=== PATIENT | male | born 1945 | race Caucasian/White ===

== ENCOUNTER 2023-05-09 10:12 | Outpatient (AMB) | payer MEDICARE, BC, SELFPAY ==
--- NOTE | 2023-05-09 10:20 | A.OFFVIS_ITS ---
Intake Intake Visit Reasons: Hemorrhoids Intake Note: This patient presents for an assessment for hemorrhoids. Patient c/o; reports no rectal bleeding, reports no pain, reports no constipation. 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 He said he had hemorrhoid surgery about 8 years ago for painful hemorrhoids. He has been doing well since that time. However for the past few months, he had noticed this stools to be ?ribbon like?. He would mentioned this to his primary care physician at the [place]. He has been instructed to see me therefore. He denies seeing blood per rectum. He does have some degree of constipation. He denies any pain in the anus. [facility] Medical History Hemorrhoids without complication Surgical History Hx of surgical procedure (~2015) History of prostate surgery History of hernia surgery (~07/2022) Family History Mother Cancer Father Cancer Social History Alcohol intake: never Patient Tobacco Use Status: Never used Tobacco Review of Systems Const Denies chills and Denies fever(s) Card Denies chest pain, Denies dyspnea and Denies dyspnea on exertion Resp Denies cough, Denies dyspnea and Denies dyspnea on exertion GI Denies hematochezia and Denies change in bowel habits Denies hematuria and Denies difficulty urinating Musc Denies back pain and Denies limited range of motion Neuro Denies focal weakness and Denies convulsions Psych Denies depression and Denies mood swings Physical Exam Const General: comfortable and no acute distress Orientation/consciousness: patient oriented x3 Neck Neck: Yes no lymphadenopathy Resp Auscultation: clear to auscultation bilaterally Cardio Rhythm: regular rhythm GI Other: Rectal exam shows no large external hemorrhoids Palpation (GI): Soft to palpation, nontender and no guarding Neuro General: patient oriented x3 Office Procedures Anoscopy He was in zachariah-knife position. The anoscope was gently inserted. A full examination of the anal canal was done. He did have small internal external hemorrhoidal columns on both the left and right side. There was no fissure, there was no lesion or any induration There was no blood seen. There has no tenderness on exam. [id number] Assessment & Plan Assessment & Plan (1) Hemorrhoids without complication: Code(s): K64.9 - Unspecified hemorrhoids Plan: He was instructed to see me because of he describes as ?ribbonlike stools? with a history of hemorrhoids in the past. He does state that his stools have improved her past few weeks. Examination does not reveal any large hemorrhoids. He has small hemorrhoidal columns, left and right side, both internal external. However, these were non bulky. I assured him about my findings. I told him that he does not require any hemorrhoid surgery at this time. I advised him on continue with high-fiber diet including supplementation. He can follow-up with me on a p.r.n. basis. Coding Level of Care Code New Pt Level 3 (17851) Diagnoses Hemorrhoids without complication K64.9 CPT Codes Details - CPT: 88410-[id number] ([id number])
== END 2023-05-09 10:52 | disposition home or self-care (01) ==
PROVIDERS: Visit Provider Surgery
DX: K64.9 Unspecified hemorrhoids (principal)
CPT/HCPCS: 46600; 99203

== ENCOUNTER → 2023-05-09 10:12 | Outpatient (BNVA) | payer MEDICARE, BC, SELFPAY | PROVIDERS: Visit Provider Surgery | DX: K64.9 Unspecified hemorrhoids (principal) | CPT/HCPCS: 46600; 99202 ==

== ENCOUNTER 2024-09-02 15:49 | Emergency (ER) | payer OTHER, SELFPAY ==
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
[2024-09-02 16:02] VITALS: BP 146/74; PULSE 90; O2SAT 95
[2024-09-02 16:09] VITALS: BP 124/71; PULSE 88; RESP 17; TEMP 36.6; O2SAT 96; BMI 21.4
[2024-09-02 16:15] VITALS: BP 124/71; PULSE 88; RESP 17; TEMP 36.6; O2SAT 96
--- OUTSIDE RECORDS SUMMARY | 2024-09-02 17:22 | XMS_ITS | Clinical Summary ---
Author Organization [facility] Address [address] [place] [address] Care Team Providers Care Chief Nurse Anesthetist Name Role Phone Bhaskar Freitas MD Primary Care Provider [phone] Allergies No known active allergies Medications Medication Sig Dispensed Refills Start Date End Date Status mirtazapine (REMERON) 15 MG tablet 0 11/04/2020 Active Magnesium Oxide 250 MG TABS Take 250 mg by mouth. 0 Active glyBURIDE (DIABETA) 1.25 MG tablet Take 1.25 mg by mouth. 0 Active atorvastatin (LIPITOR) tablet 20 mg Take 20 mg by mouth. 0 Active cyanocobalamin 1000 MCG tablet Take 100 mcg by mouth. 0 Active tamsulosin (FLOMAX) 0.4 MG CAPS 0.4 mg. 0 05/20/2019 Active pantoprazole (PROTONIX) 40 MG tablet Take 40 mg by mouth. 0 Active Multiple Vitamins-Minerals (PreserVision AREDS) CAPS Take 1 capsule by mouth. 0 Active Active Problems No known active problems Family History Medical History Relation Name Comments Cancer Father Cancer Mother Relation Name Status Comments Father Mother Social History Tobacco Use Types Packs/Day Years Used Date Smoking Tobacco: Former Smokeless Tobacco: Never Sex and Gender Information Value Date Recorded Sex Assigned at Not on file Gender Identity Not on file Sexual Orientation Not on file Job Start Date Occupation Industry Not on file Not on file Not on file Last Filed Vital Signs Vital Sign Reading Time Taken Comments Blood Pressure - - Pulse - - Temperature - - Respiratory Rate - - Oxygen Saturation - - Inhaled Oxygen Concentration - - Weight 68.9 kg (152 lb) 11/18/2020 3:27 PM EDT Height 175.3 cm (5' 9 ) 11/18/2020 3:27 PM EDT Body Mass Index 22.45 11/18/2020 3:27 PM EDT Plan of Treatment Health Maintenance Due Date Last Done Comments Hepatitis C Screening 1945 COVID-19 Vaccine (#1) 1945 Depression Screening 1959 Preventative Health Evaluation 04/20/1965 DTap / Tdap / Td (1 - Tdap) 04/20/1966 Shingrix-Zoster Vaccine (1 of 2) 04/20/1997 Fall Risk Assessment 04/20/2012 Pneumococcal Vaccine (1 of 1 - PCV) 04/20/2012 RSV Adult > 60+ Yrs or Pregn ant (1 - 1-dose 75+ series) 04/20/2022 Influenza Vaccine (#1) 2024 Hepatitis B Vaccines Aged Out No long er eligible based on patient's age to complete this topic RSV Ped < 20 months Aged Out No longe r eligible based on patient's age to complete this topic Care Teams Chief Nurse Anesthetist Relationship Specialty Start Date End Date Bhaskar Freitas MD [address] [place], [place] [phone] PCP - General Family Medicine 10/27/20
--- OUTSIDE RECORDS SUMMARY | 2024-09-02 17:23 | XMS_ITS | Data Portability ---
Author Organization [place] - [facility], Allergy Address [address] [address] Assessment Encounter Date Assessment Date Assessment LastModified by Organization Details LastModified Time 07/09/2023 07/09/2023 After informed consent was obtained the area of concern was biopsied. The patient tolerated this well. Hemostasis was achieved prior to patient leaving the office. Advised soft diet for 3-5 days, as well as warm salt water gargles after meals. I will call the patient with the pathology results, if he does not hear from me by the end of next week he understands to call the office or check in via the portal. [email or web address] Not available 07/09/2023 12:25:52 Plan of Treatment Reminders Order Date Submit Date Provider Last Modified By Organization Details Last Modified Time Details Appointments None recorded. Lab pathology study - [place] location 2023 024 GINNY [facility] (Centralized Electronic Ordering - All Locations), Patient Can Go To The Location Of Their Choice, [address] 14:28:15 Referral None recorded. Procedures None recorded. Surgeries None recorded. Imaging None recorded. Medication Orders None recorded. Patient TargetsNo targets recorded. Patient InstructionsNo instructions recorded. Reason for Referral None Reported. Results Created Date Observation Date Name Description Value Unit Range Abnormal Flag Note LastModifiedBy Organization Detail LastModifiedTime Result Notes None recorded. 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/11/2015 11:54 AM (D10.1) Not Available [facility] 4 03:22:13 Deviated nasal septum 619461517 Active 2015 Deviated nasal septum; Location: bilateral CMS Risk: moderate risk CMS Treatment : new problem (to examiner) : additiona l workup planned C ondition: worse Not e: Date Diagnosed : 4 2:40 PM (470) ; Start Date : 4 Deviate d nasal septum; Note: Date Diagnosed : 08/11/2015 11:53 AM (J34.2) Not Available [facility] 4 03:22:13 Chronic disease of tonsils AND/OR adenoids 55892948 Active 2018 Tonsillar tag; Note: Date Diagnosed : 07/31/2018 9:39 AM (J35.8) Not Available [facility] 4 03:22:14 Bleeding from nose 289813753 Active 2019 Epistaxis ; Note: Date Diagnosed : 10/06/2019 2:40 PM (R04.0) Epistax is; Note: Date Diagnosed : 09/24/2019 5:38 PM (R04.0) ; Start Date : 0 Not Available [facility] 4 03:22:13 Disturban ce of oral epitheliu m [id number] 9107 Active 2022 Other oral epitheliu m disturban elizabeth; Note: Date Diagnosed : 06/05/2022 3:25 PM (K13.29) Not Available [facility] 4 03:22:13 Problem Notes None recorded. Procedures Surgical History Date Name Laterality Status Provider Name and Address Organization Details Recorded Time 07/09/2023 Biopsy Oral Cavity completed Nica Jaeger [place] - [facility] 07/09/2023 12:22:17 Imaging Results None recorded. Procedure Notes None recorded. Medical Equipment None Reported. Allergies No known drug allergies Medications Name Sig Start Date Stop Date Status Note LastModified by Organization Details LastModified Time atorvastat in 20 mg tablet 2013 active Medicatio n ID: [id number] Dura tion Value: 30 Brand Name: atorvasta tin Send Method: E-Prescri bed Subs Allowed: subs OK Medica tionGener icName: atorvasta tin Not Available Not Available Not Available Flonase 50 mcg/actuat ion nasal spray,susp ension 2013 active Medicatio n ID: [id number] Pres cribed By Name: Emilee Cortez Name: Flonase S end Method: E-Prescri bed Subs Allowed: subs OK Specia l Instructi on: 2 spray each nostril BID Medic ationGene ricName: Flonase Not Available Not Available Not Available hydrocorti sone acetate 25 mg rectal suppositor y active Not Available Not Available Not Available lorazepam 0.5 mg tablet active Not Available Not Available Not Available tamsulosin 0.4 mg capsule active Not Available Not Available Not Available Proctofoam HC 1 %-1 % APPLY A PEA SIZED AMOUNT TO THE AFFECTED AREA TWICE DAILY NEEDED FOR 30 DAYS active Not Available Not Available No t Available bisacodyl 5 mg tablet,del ayed release TAKE 4 TABLETS BY MOUTH ONCE FOR 1 DOSE active Not Available Not Available No t Available finasterid e 5 mg tablet active Not Available Not Available Not Available oxycodone 5 mg tablet active Not Available Not Available Not Available GaviLyte-G 236 gram-22.74 gram-6.74 gram-5.86 gram oral solution MIX AND DRINK DIRECTED active Not Available Not Available No t Available EpiPen 2-Jim 0.3 mg/0.3 mL injection, auto-injec tor 2013 active Medicatio n ID: [id number] Dura tion Value: 1 Brand Name: EpiPen 2-Jim Saul d Method: E-Prescri bed Subs Allowed: subs OK Specia l Instructi on: USE DIRECTED NEEDED FOR BEE STINGS Me dicationG enericNam e: EpiPen 2-Jim Not Available Not Available Not Available Vitals Date Recorded Body height Body mass index (BMI) Body weight Provider Name and Address Organization Details Last Updated DateTime 07/09/2023 175.26 cm 23.6 kg/m2 79814.78 g Teresa Burleson [place] - [facility] 07/09/2023 11:35:40 Social History None recorded. Functional Status None recorded. Mental Status None recorded. Family History Nothing Reported. Medical History No medical history recorded. Past Encounters Encounter ID Performer Location Encounter Start Date Encounter Closed Date Diagnosis/Indication Diagnosis SNOMED-CT Code Diagnosis ICD10 Code Diagnosis Note [id number] NICA JAEGER PA-C [facility] on [address] [place] [address] 07/09/2023 11:07:40 07/09/2023 12:59:45 Disturbance of oral epithelium [id number] 03030 K13.29 Health Concerns Section Related Observation LastModified by Organization Detai ls LastModified Time None Recorded Concern Status LastModified by Organization Details LastModified Time None Recorded Advance Directives Directive None Recorded Payers Insurance Date Sequence Insurance Name Policy Number Policy Flores Covered Member ID Flores Member ID Guarantor Name 07/09/2023 1 () Aryan Henriquez [id number] Aryan Henriquez 07/16/2023 1 [place]ICARE [place]: [employer] Aryan Up Martinez [id number] Aryan Henriquez 07/17/2023 2 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 He saw a physician in [place] (unclear if it was an oral surgeon or ENT). He had a shave procedure done and he was told it was a pre-cancerous lesion. He did well for many years. He reports about six months ago he noticed while flossing his teeth a little white line in the vicinity of the prior lesion. It is not painful. No bleeding. He was seen for this about two months ago and there was an area of pale discoloration of the left posterior lateral tongue. It was soft to palpation, surrounding mucosa normal. We discussed the area does not look concerning, and could represent scarring from his prior procedure. We elected to proceed with observation with plans for biopsy if something changed. He has no new symptoms to report, but is feeling worried and would like to just proceed with the biopsy. Nica conner [place] - [facility] [place] 07/09/2023 12:30:03
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
[2024-09-02 19:00] VITALS: BP 124/71; PULSE 88; RESP 17; TEMP 36.6; O2SAT 96
== END 2024-09-02 19:00 | disposition home or self-care (01) ==
PROVIDERS: Emergency Provider Internal Medicine
DX: S13.4XXA Sprain of ligaments of cervical spine, initial encounter (principal); M54.2 Cervicalgia; R51.9 Headache, unspecified; V43.52XA Car driver injured in collision with other type car in traffic accident, initial encounter; Y93.9 Activity, unspecified; Y92.410 Unspecified street and highway as the place of occurrence of the external cause; Y99.8 Other external cause status; Z79.899 Other long term (current) drug therapy
CPT/HCPCS: 70450; 72125; 99284

== ENCOUNTER → 2024-09-02 17:09 | Outpatient (BNV) | payer MEDICARE, BC, SELFPAY | PROVIDERS: Emergency Provider Internal Medicine; Visit Provider Radiology Diagnostic Radiology | DX: M25.78 Osteophyte, vertebrae (principal); G31.9 Degenerative disease of nervous system, unspecified | CPT/HCPCS: 70450; 72125 ==

== ENCOUNTER 2024-10-14 13:50 | Outpatient (AMB) | payer MEDICARE, BC, SELFPAY ==
--- OUTSIDE RECORDS SUMMARY | 2023-11-06 06:00 | XMS_ITS ---
Author Name [facility] [place] [facility] [place] [facility] [facility] [place] Address [address] [place] [address] Care Team Providers Care Supervisor Seaming Name Role Phone ESTEFANY OVERTON Primary Care Provider Unavailshivani christopher Insurance Providers: All historical and current Section Date Range: From patient's date of to the date document was created. This section includes the names of all active insurance providers for the patient. Insurance Provider Type of Coverage Plan Name Start of Policy Coverage End of Policy Coverage Group Number Member ID Insurance Provider's Telephone Number Policy Flores's Name Patient's Relationship to Policy Flores [facility] PREFERRED PROVIDER ORGANIZAT ION (PPO) BASIC FAMIL Y Feb 23, 2001 [id number] [phone] Priya BLAND SPOUSE ANTHEM BCBS FEP PREFERRED PROVIDER ORGANIZAT ION (PPO) FEP BASIC FAMIL Y Feb 23, 2001 [id number] EDWINA SPOUSE ANTHEM FEP PREFERRED PROVIDER ORGANIZAT ION (PPO) FEP BASIC FAMIL Y Feb 23, 2001 112 [id number] [phone] Priya [place] PREFERRED PROVIDER ORGANIZAT ION (PPO) BASIC FAMIL Y Feb 23, 2001 [id number] Priya [place] PREFERRED PROVIDER ORGANIZAT ION (PPO) BASIC FAMIL Y Feb 23, 2001 [id number] [phone] EDWINAPriya SANTOS SPOUSE [place] FEP ([id number]) PRESCRIPT ION FEP RX Feb 23, 2001 [id number] [phone] Priya BLAND SPOUSE [place] FEP BCBS PRESCRIPT ION CAREM ARK FEPRX Feb 11, 2010 [id number] [phone] Priya BLAND SPOUSE [place]-F EP BCBS PRESCRIPT ION BCBS FEP PLAN Feb 11, 2010 [id number] [phone] Priya BLAND SPOUSE MEDICARE (WN) MEDICARE () PART B Feb 11, 2015 PART B [id number] [facility] [phone] [place],F RANK PATIENT MEDICARE (WN) MEDICARE () PART B Feb 11, 2015 PART B [id number] [facility] [phone] [place],F RANK PATIENT MEDICARE (WNR) MEDICARE () PART B Feb 11, 2015 PART B [id number] [facility] [phone] [place],F RANK PATIENT MEDICARE (WN) MEDICARE () PART B Feb 11, 2015 PART B [id number] [facility] MATYOKA,F RANK PATIENT MEDICARE (WNR) MEDICARE () PART B Feb 11, 2015 PART B [id number] [facility] MATYOKA,F RANK PATIENT MEDICARE (WNR) MEDICARE () PART A Apr 11, 2012 PART A [id number] [facility] MATYOKA,F RANK PATIENT MEDICARE (WNR) MEDICARE () PART A Apr 11, 2012 PART A [id number] [facility] [phone] [place],F RANK PATIENT MEDICARE (WNR) MEDICARE () PART A Apr 11, 2012 PART A [id number] [facility] MATY[place]A,F RANK PATIENT MEDICARE (WNR) MEDICARE () PART A Apr 11, 2012 PART A [id number] [facility] [phone] Sae BLAND RANK PATIENT MEDICARE (WNR) MEDICARE (M) PART A Apr 11, 2012 PART A [id number] [facility] Sae BLAND RANK PATIENT Selected Encounter This section includes the information on record at [place] for the Encounter. Date/Time Encounter Type Encounter Description Reason Provider Source Nov 06, 2023 10:00 AM PSYTX W PT 45 MINUTES PCMHI INDIV ICD-10-CM Z63.0 Problems in relationship with spouse or partner DEANDRE HUTCHINSON IHE Encounter Template Text not used by [place] Assessments - Encounter Diagnoses This section includes the primary and secondary diagnoses documented for the Encounter. Date/Time Primary/Secondary Diagnosis Diagnosis Name Provider Source Nov 08, 2023 10:24 AM PRIMARY Problems in relationship with spouse or partner DEANDRE HUTCHINSON [place] [facility] [place] [facility] Nov 08, 2023 10:24 AM SECONDARY Depression, unspecified DEANDRE HUTCHINSON [facility] [place] [facility] Nov 08, 2023 10:24 AM SECONDARY Post-traumatic stress disorder, unspecified DEANDRE HUTCHINSON [facility] [place] [facility] Nov 08, 2023 10:24 AM SECONDARY Unspecified urinary incontinence DEANDRE HUTCHINSON [facility] [place] [facility] Plan of Treatment: Future Appointments (+ 6 months) and Future Tests (+/- 45 days) The Plan of Treatment section includes future care activities for the patient from all [place] treatmentfacilities. This section includes future appointments and future orders which are active, pending or scheduled. Future Appointments This section includes appointments that were scheduled to occur 6 months from the date of the Encounter, up to a maximum of 20 appointments. The data comes from all [place] treatment facilities. Appointment Date/Time Appointment Type Appointme nt Facility Name Nov 08, 2023 01:30 PM AMBULATORY - [place]ICINE [place] [facility] [place] [facility] Nov 08, 2023 02:15 PM AMBULATORY - NONE [place] [facility] [place] [facility] Nov 11, 2023 02:00 PM AM[place]UL[place]ORY [place]ICINE [place] [facility] [place] [facility] Dec 05, 2023 03:00 PM AMBULATORY - PSYCHIATRY [place] [facility] [place] [facility] Dec 11, 2023 11:30 AM AM[facility] [place]ICINE [facility] [place] [facility] Dec 17, 2023 09:00 AM AMBULATORY - NONE [facility] [place] [facility] Dec 20, 2023 10:30 AM AMBULATORY - NONE [facility] [place] [facility] Jan 01, 2024 02:30 PM AMBULATORY - REHAB MEDICIN E [facility] [place] [facility] Jan 22, 2024 09:00 AM AMBULATORY - MEDICINE [facility] [place] [facility] Feb 19, 2024 10:40 AM AMBULATORY - MEDICINE [facility] [place] [facility] Mar 11, 2024 01:40 PM AMBULATORY - MEDICINE [facility] [place] [facility] Mar 25, 2024 11:00 AM AMBULATORY - MEDICINE [facility] [place] [facility] Apr 15, 2024 10:00 AM AM[place]UL[place]ORY [place]ICINE [place] [facility] [place] [facility] Lab Results: +/- 30 days of the encounter This section includes the Chemistry and Hematology Lab Results on record with [place] for the patient. Radiology Reports and Pathology Reports are provided separately, in subsequent sections. Lab Results This section contains the Chemistry/Hematology Results that were resulted 30 days before or 30 daysafter the date of the Encounter. Date/Time Source Result Type Result - Unit Interpretation Reference Range Specimen Type Comment Oct 22, 2023 08:57 AM [place] [facility] [place] [facility] DRUGS OF ABUSE URINE Specimen Type: URINE Comment: Urine with Cr <5 is diluted or substituted. Cr between 5 and 20 is very dilute. Urine with SG of 1.001 or less is diluted or substituted. SG of 1.003 or less is very dilute. Urine with a pH <3 or >11 has been adulterated and is unsuitable for testing by our current method. Urine with pH between 3 and 4 OR 10 and 11 may have been adulterated. FENTANYL CONFIRMATION NOT SENT BY LAB. Ordering Provider: ESTEFANY OVERTON Report Released Date/Time: Oct 21, 2023 01:38 PM Reporting [facility] [address] [id number] Performing Lab: [facility] [address] [address] AMPHETAMINES SCREEN NONE-DETECTED None-Detected, Cutoff = 1000 ng/mL BENZODIAZEPINES SCREEN NONE-DETECTED Non e-Detected, Cutoff = 200 ng/mL COCAINE SCREEN NONE-DETECTED None-Detect ed,Cutoff = 300 ng/mL OPIATES SCREEN NONE-DETECTED None-Detect ed, Cutoff = 300 ng/mL CANNABINOIDS SCREEN POSITIVE HH None-Detect ed,Cutoff = 50 ng/mL BARBITURATES SCREEN NONE-DETECTED None-D etected,Cutoff = 200 ng/mL OXYCODONE SCREEN NONE-DETECTED None-Dete cted, Cutoff = 100 ng/mL BUPRENORPHINE (URINE) NONE-DETECTED None Detected, Cutoff = 10.0 ng/mL ALCOHOL, ETHYL URINE NONE-DETECTED mg/dL NONE-DETECTED, cutoff = 10 mg/dL FENTANYL SCREEN NONE-DETECTED ng/mL Nega tive: Cutoff = 1.00 ng/mL PH, ANSHU 6.3 [pH] 4-10 CREATININE, ANSHU 203.20 mg/dL >20 SP.GRAVITY, ANSHU 1.020 1.003-1.020 Social History: Smoking Status (Most current) and Tobacco Use (All prior to encounter date) This section includes the most current, and the historical, smoking and tobacco- related health factors from the [place] facility where the Encounter took place. Current Smoking Status This section includes the most current smoking, or tobacco-related health factor, from the [place] facility where the Encounter took place. Date/Time Current Smoking Status Comment [facility] Dec 18, 2022 10:00 AM VA-TOBACCO FORMER USER [facility] Tobacco Use History This section includes a history of the smoking, or tobacco-related health factors, that were collected on or before the date of the Encounter. The data comes from the [place] facility where the Encounter took place. Date/Time Smoking Status/Tobac co Use Comment Facility Dec 18, 2022 10:00 AM VA-TOBACCO QUIT 15 YRS OR MORE [facility] Dec 06, 2021 09:30 AM VA-TOBACCO FORMER USER [place] [facility] [place] [facility] Dec 06, 2021 09:30 AM VA-TOBACCO QUIT 15 YRS OR MORE [facility] Nov 03, 2020 03:30 PM [facility] [place] [facility] Nov 03, 2020 03:30 PM VA-TOBACCO QUIT 15 YRS OR MORE [place] [facility] [place] [facility] Dec 04, 2019 10:30 AM VA-TOBACCO FORMER USER [place] [facility] [place] [facility] Dec 04, 2019 10:30 AM VA-TOBACCO QUIT 15 YRS OR MORE [facility] [place] [facility] May 30, 2018 09:32 AM VA-TOBACCO FORMER USER [place] [facility] [place] [facility] May 30, 2018 09:32 AM VA-TOBACCO QUIT 15 YRS OR MORE [facility] [place] [facility] Nov 29, 2017 09:01 AM VA-TOBACCO FORMER USER [facility] [place] [facility] Nov 29, 2017 09:01 AM VA-TOBACCO QUIT 15 YRS OR MORE [facility] [place] [facility] Dec 13, 2016 08:30 AM LIFETIME NON-TOBACCO USER [place] [facility] [place] [facility] Jul 13, 2015 09:13 PM QUIT TOBACCO USE > 7 YEARS AGO . [place] [facility] [place] [facility] Feb 15, 2009 09:19 AM QUIT TOBACCO USE > 7 YEARS AGO quit when he left service in 1968. [facility] Radiology Reports: +/- 30 days of the encounter Radiology Reports For cases when an order for radiology services may have been completed prior to the date of the Encounter, the report list includes the Radiology Reports that were completed up to 30 days before dateof the Encounter. For cases when an order for radiology services may have been completed after the date of the Encounter, the report list also includes the Radiology Reports that were completed up to30 days after date of the Encounter. The data comes from all [place] treatment facilities. Date/Time Radiology Report Provider Source Nov 08, 2023 02:20 PM ULTRASOUND NECK (THYROID,HEAD,SOFT TISSUE): EWAUMBERTOSRAVANTHI [id number] -[id number] M Ex Date: NOV 08, 2023@14:20 Req Phys: ESTEFANY OVERTON Loc: CWM/NO/PACT EIGHT (Req'g Loc) Img Loc: ULTRASOUND Service: Unknown [facility] [place] [address] (Case [id number] COMPLETE) ULTRASOUND NECK (THYROID,HEAD,SOF(US Detailed) CPT:53161 Reason for Study: thyroid nodule follow up Clinical History: f/u prev ultrasound Report Status: Verified Date Reported: NOV 08, 2023 Date Verified: NOV 08, 2023 Barrel Builder E-Sig:/ES/ELSY STILES JR Report: Study: Thyroid ultrasound. Comparison: Thyroid ultrasound from November 30, 2022 and October 24, 2021. Findings: The right lobe of the thyroid measures 5.1 cm in long length x 2.0 cm in AP diameter x 2.1 cm in transverse diameter. Stable volume of 11 cc. No focal nodule or mass identified. The thyroid isthmus appears sonographically normal. The left lobe of the thyroid measures 4.8 cm in long length x 1.4 cm in AP diameter x 2.2 cm in transverse diameter. Stable volume of 8 cc. Again seen is a lower pole 1.0 cm in greatest dimension stable solid, hypoechoic, wider than tall, smoothly marginated nodule with no echogenic foci equaling TI-RADS level 4: Moderately suspicious with no FNA due to size and sonographic follow-up due to size at 1, 2, 3 and 5 year intervals from the 2021 examination. Again seen is an upper pole 1.1 cm in greatest dimension, previously 0.8 cm in greatest dimension solid, hypoechoic, wider than tall, smoothly marginated nodule with no echogenic foci equaling TI-RADS level 4: Moderately suspicious with no FNA recommended due to size and with sonographic follow-up recommended due to size at 1, 2, 3 and 5 year intervals from the 2021 examination. No new left thyroid lobe nodule or mass is identified. No extrathyroidal nodules are identified. Impression: No significant interval change to thyroid nodules, as described above. Normal volume is 7-11 cc/lobe. Volume = L x H x W x 0.52. Differences in technique can preclude direct comparisons. *TI-RADS: Ultrasound based management guidance of thyroid nodules. 0 points: cystic, anechoic, wider than tall, smooth border, comet tail artifact, spongiform. 1 point: mixed cystic and solid, hyperechoic, isoechoic, MACROcalcifications. 2 points: solid, hypoechoic, lobulated or irregular margins, peripheral rim calcifications. 3 points: very hypoechoic, taller than wide, extrathyroidal extension, microcalcifications. TR1 (0 points): Spongiform nodules. cysts. Benign, No FNA. No followup indicated. TR2 (2 points): Not suspicious, No FNA. Followup ultrasound 1, 3, and 5 years. TR3 (3 points): Mildly suspicious. FNA if > 2.5 cm, Follow-up if >1.5 cm. Followup ultrasound 1, 3, and 5 years. TR4 (4 to 6 points): Moderately Suspicious. FNA if >1.5 cm. Follow-up if > 1cm. Followup ultrasound every 1, 2, 3, and 5 years. TR5 (7 points or more): Highly Suspicious. FNA if > 1cm. Follow-up if > 0.5cm. Followup ultrasound every year. Features include solid hypoechoic nodule, solid hypoechoic component of the partially cystic nodule, WITH one or more of the following features: Irregular margins, microcalcifications, taller than wide shape, rim calcifications with small extrusive soft tissue component, evidence of extrathyroidal extension SIGNIFICANT CHANGE: is defined as 20% increase in at least 2 nodule dimensions or a greater than 50% increase in volume. * Reference: ACR Thyroid Imaging, Reporting and Data System (TI-RADS): White Paper of the TI-RADS Committee. Tessler et al., Journal of the [place] [employer] 2017;14:587-595. Primary Diagnostic Code: No immediate attention required Primary Interpreting Staff: ELSY STILES JR, Radiologist (Barrel Builder) /ELSY SAAVEDRA JR [facility] Encounter Notes: All associated encounter notes This section contains the clinical notes associated to the Encounter. Date/Time Encounter Note(s) Provider Source Nov 06, 2023 06:00 AM MENTAL HEALTH CONSULT: LOCAL TITLE: PC-MH INTEGRATION/CONSULT REPORT STANDARD TITLE: MENTAL HEALTH CONSULT DATE OF NOTE: NOV 06, 2023@06:00 ENTRY DATE: NOV 06, 2023@06:00:23 AUTHOR: STACY HUTCHINSON COSIGNER: URGENCY: STATUS: COMPLETED PC-[facility]HI HEALTH ASSESSMENT NOTE DURATION: 50 mins REFERRING PROVIDER: PCPLauro REASON FOR REFERRAL: Strain in marriage, sleep, adjustment to prostate surgery Informed consent and limits of confidentiality were provided. Mr. Bland is a 78 years old , white male [place] with a PMH of PTSD (SC), DM II, hearing loss, spinal stenosis and chronic pain, and depression. CHIEF COMPLAINT: Hanston explored current challenges, some similar to when last seen in [facility] (2018) and some different. shared that sleep challenges and trauma-related anxiety symptoms (SC PTSD) still persist, but he said that he also struggles with recovery from prostate surgery (frequent incontinence) excessive rumination and anxiety, and marital strain with partner (worse last three months). explored how he and his want to remain but he revealed that he has felt slighted, invalidated and disrespected and he shared that his had an emotional affair with a coworker of which was hurtful. He identified depression related to changes to health and functioning and inconvenience and embarrassment related to not knowing when inconintence will occur. In addition, Hanston identified habits of avoidance of vulnerable emotions and some challenges with forgetfulness and word finding. Moreover, he revealed that he uses Lorazepam to sleep at times and would like to work on sleep hygiene and sleep habits and may want to consider a psychiatric medication consultation or ask PCP about another psychotropic medication. not a benzodiazapine. He said that he will consult with PCP at upcoming appt. Furhtermore, results on measures were reviwed. FUNCTIONAL ASSESSMENT: o SLEEP: 3-4 hrs a night on avreage, problems falling and staying asleep, benzo lately to help- ruminating and overthinking- 2.5 hrs longest on recliner- cannot stay asleep in bed- toss and turn- 30min-45 mins naps 3-4x a week- brief sleep hygeine provided o APPETITE: no poor appetite no overeating, 3 meals a day o ALCOHOL: 1 glass of wine, social outings 3x a week o CAFFIENE: decaf coffee on occasion o ILLICIT DRUGS/TOBACCO: none; quit 1968 o CLOSE RELATIONSHIPS: , a few friends son and - (son 53 from previous marriage)- step son, 3 couples very close and visit once a week o LIVING SITUATION: o EMPLOYMENT: 1997 retired- [age]- [place] war- 1997- [employer] worked FT o COPING: walking ,social outings, painting o PAIN/CHRONIC HEALTH CONDITIONS: DM II, hearing loss, chronic pain o CULTURE: last few months christian- alie [employer]- attended a christian friend goes to- [employer] father INTERVENTION: Gathered psychosocial history and functioning Provided psychoeducation on stress response, impact of poor sleep on mood and functioning, impact of avoidance habits- handouts provided Provided psychoeducation on grief response in relation to health and benefits of assertiveness skills in relationship functioning-handouts provided Conducted SI/HI risk assessment Provided information on -[facility] LETHALITY: Suicidal or homicidal ideation: No Suicidal or homicidal plans: No Suicidal or homicidal intention: No Previous suicide attempts: No RISK LEVEL IMPRESSION: Hanston presents at low risk of harm to self and others at this time. SCREENERS: PHQ-9: 5, mild depression, somewhat difficult OBED-7: 13, moderate anxiety, somewhat difficult DIAGNOSES: Problems in Relationship with Spouse; PTSD (SC); Depressive Disorder, Unspecified; Incontinence IMPRESSIONS/PLAN: Mr. Bland met administrative underwriter for one session of [facility] treatment 2018. Hanston continues to experience PTSD, sleep challenges and depression, but in addition, is now experiencing marital strain and difficulty with recovery from prostate surgery (incontinence). He denied SI/HI. In collaboration with considering evidence-based treatment, clinical judgment and patient preference, options of treatment were offered. Hanston agreed to return to [facility] for brief CBT including sleep hygiene, cognitive restructuring as well as assertiveness skills to assist communication with partner and grief support around changes to health and functioning. He will return to [facility] for roughly 3-5, individual sessions. He will return to [facility], 12/04 at 3pm. INTERDICIPLINARY TREATMENT PLANNING INVOLVING: Referring provider will be alerted of this plan ACTIVE PROBLEMS LIST Active problems - Computerized Problem List is the source for the followin. Liver cyst 2. Exposure to potentially hazardous substance 3. Left inguinal hernia 4. Spinal stenosis in cervical region 5. Thyroid nodule 6. Elevated PSA 7. Esophageal stricture 8. Posttraumatic stress disorder (SNOMED CT 52933011) 9. Meralgia paresthetica 10. Drusen 11. Type 2 diabetes mellitus (SNOMED CT 60380250) 12. Shared care - biztalk consultant and GP 13. History of colonoscopy 14. Diverticulosis 15. Family History of Malignant Neoplasm of Gastrointestinal Tract 16. Hyperlipidemia (SNOMED CT [id number]) 17. Hearing Loss ALL ACTIVE MEDICATIONS Active Outpatient Medications (including Supplies): Active Outpatient Medications Status 1) ATORVASTATIN CALCIUM 20MG TAB TAKE ONE-HALF TABLET BY ACTIVE MOUTH ONCE DAILY FOR HIGH CHOLESTEROL 2) CARBOXYMETHYLCELLULOSE UD 0.5%(PF)OP RAZA INSTILL 1 ACTIVE DROP INTO EACH EYE EVERY 2 HOURS WHILE AWAKE 3) DOCUSATE NA 50MG/SENNOSIDES 8.6MG TAB TAKE 2 TABLETS ACTIVE BY MOUTH ONCE DAILY FOR CONSTIPATION 4) INCONT LINER DEPEND GUARDS USE 1 PAD TOPICALLY ONCE ACTIVE DAILY 5) INCONT LINER DIGNITY PLUS SUPER ABSORB USE 1 PAD ACTIVE TOPICALLY FOUR TIMES DAILY NEEDED 6) LORAZEPAM 0.5MG TAB TAKE ONE TABLET BY MOUTH ONCE ACTIVE DAILY NEEDED FOR ANXIETY Suicide Screen: C-SSRS Screening Dukes-Suicide Severity Rating Scale (C-SSRS Screener) 1. Over the past month, have you wished you were or wished you could go to sleep and not wake up? No 2. Over the past month, have you had any actual thoughts of killing yourself? No 3. Over the past month, have you been thinking about how you might do this? Response not required due to responses to other questions. 4. Over the past month, have you had these thoughts and had some intention of acting on them? Response not required due to responses to other questions. 5. Over the past month, have you started to work out or worked out the details of how to kill yourself? Response not required due to responses to other questions. 6. If yes, at any time in the past month did you intend to carry out this plan? Response not required due to responses to other questions. 7. In your lifetime, have you ever done anything, started to do anything, or prepared to do anything to end your life (for example, collected pills, obtained a gun, gave away valuables, went to the roof but didn't jump)? No 8. If YES, was this within the past 3 months? Response not required due to responses to other questions. /zoë/ STACY HUTCHINSON, PhD STAFF PSYCHOLOGIST Signed: 11/08/2023 10:25 Receipt Acknowledged By: 11/08/2023 15:04 /zoë/ ESTEFANY OVERTON D.O. PHYSICIAN STACY HUTCHINSON [place] [facility]
--- OUTSIDE RECORDS SUMMARY | 2023-11-08 09:30 | XMS_ITS | Encounter Summary ---
Author Name [facility] [place] [facility] [place] Address [address] [place] [address] Care Team Providers Care Field Operator Name Role Phone ESTEFANY OVERTON Primary Care Provider Unavailshivani e Insurance Providers: All historical and current Section [...] Name Patient's Relationship to Policy Flores [facility] PREFERRED PROVIDER ORGANIZAT ION (PPO) BASIC FAMIL Y Feb 23, 2001 [id number] [phone] Priya BLAND SPOUSE ANTHEM BCBS FEP PREFERRED PROVIDER ORGANIZAT ION (PPO) FEP BASIC FAMIL Y Feb 23, 2001 [id number] EDWINA SPOUSE GHISLAINE FEP PREFERRED PROVIDER ORGANIZAT ION (PPO) FEP BASIC FAMIL Y Feb 23, 2001 112 [id number] [phone] Priya BLAND SPOUSE [place] F[place] PREFERRED PROVIDER ORGANIZAT ION (PPO) BASIC FAMIL Y Feb 23, 2001 [id number] Priya BLANDE SPOUSE BCBS [place] PREFERRED PROVIDER ORGANIZAT ION (PPO) BASIC FAMIL Y Feb 23, 2001 [id number] [phone] EDWINAPriya SANTOS SPOUSE [place] FEP ([id number]) PRESCRIPT ION FEP RX Feb 23, 2001 [id number] [phone] EDWINAPriya SANTOS SPOUSE [place] FEP BCBS PRESCRIPT ION CAREM ARK FEPRX Feb 11, 2010 [id number] [phone] Priya BLAND SPOUSE [place]-F EP BCBS PRESCRIPT ION BCBS FEP PLAN Feb 11, 2010 [id number] EDWINAPriya SANTOS SPOUSE MEDICARE (WN) MEDICARE () PART B Feb 11, 2015 PART B [id number] [facility] [place],F RANK PATIENT MEDICARE (WN) MEDICARE () PART B Feb 11, 2015 PART B [id number] [facility] [place],F RANK PATIENT MEDICARE (WNR) MEDICARE () PART B Feb 11, 2015 [id number] [id number] [place],F RANK PATIENT MEDICARE (WN) MEDICARE () PART B Feb 11, 2015 PART B [id number] [facility] [place],F RANK PATIENT MEDICARE (WNR) MEDICARE () PART B Feb 11, 2015 PART B [id number] [id number] [phone] [place],F RANK PATIENT MEDICARE (WNR) MEDICARE () PART A Apr 11, 2012 PART A [id number] [facility] [phone] [place],F RANK PATIENT MEDICARE (WNR) MEDICARE () PART A Apr 11, 2012 PART A [id number] [facility] [place],F RANK PATIENT MEDICARE (WNR) MEDICARE () PART A Apr 11, 2012 PART A [id number] [facility] [place],F RANK PATIENT MEDICARE (WNR) MEDICARE () PART A Apr 11, 2012 PART A [id number] [facility] Sae BLAND RANK PATIENT MEDICARE (WNR) MEDICARE (M) PART A Apr 11, 2012 PART A [id number] [facility] Sae BLAND RANK PATIENT Selected Encounter This section includes the information on record at [place] for the Encounter. Date/Time Encounter Type Encounter Description Reason Provider Source Nov 08, 2023 01:30 PM COMPRE OPH EXAM EST PT 1/> OPTOMETRY ICD-10-CM E11.9 Type 2 diabetes mellitus without complications LISA VERNON Prerna Encounter Template Text not used by [place] Assessments - Encounter Diagnoses This section includes the primary and secondary diagnoses documented for the Encounter. Date/Time Primary/Secondary Diagnosis Diagnosis Name Provider Source Nov 08, 2023 04:24 PM PRIMARY Type 2 diabetes mellitus without complications LISA VERNON [facility] [place] [facility] Nov 08, 2023 04:24 PM SECONDARY Age-related nuclear cataract, bilateral LISA VERNON [facility] [place] [facility] Nov 08, 2023 04:24 PM SECONDARY Dry eye syndrome of bilateral lacrimal glands LISA VERNON [facility] [place] [facility] Nov 08, 2023 04:24 PM SECONDARY Open angle with borderline findings, low risk, bilateral LISA VERNON [facility] [place] [facility] Nov 08, 2023 04:24 PM SECONDARY Presbyopia LISA VERNON [facility] [place] [facility] Plan of Treatment: Future Appointments (+ 6 months) and Future Tests (+/- 45 days) The Plan of Treatment section includes future care activities for the patient from all [place] treatmentfaatrium healthities. This section includes future appointments and future orders which are active, pending or scheduled. Future Appointments This section includes appointments that were scheduled to occur 6 months from the date of the Encounter, up to a maximum of 20 appointments. The data comes from all [place] treatment facilities. Appointment Date/Time Appointment Type Appointme nt Facility Name Nov 11, 2023 02:00 PM AMBULATORY - MEDICINE [facility] [place] [facility] Dec 05, 2023 03:00 PM [facility] Dec 11, 2023 11:30 AM [facility]UL[facility] - MEDICINE [facility] [place] [facility] Dec 17, 2023 09:00 AM AMBULATORY - NONE [facility] [place] [facility] Dec 20, 2023 10:30 AM AMBULATORY - NONE [facility] [place] [facility] Jan 01, 2024 02:30 PM AMBULATORY - REHAB MEDICIN E [facility] [place] [facility] Jan 22, 2024 09:00 AM AMBULATORY - MEDICINE [facility] [place] [facility] Feb 19, 2024 10:40 AM AMBULATORY - MEDICINE [facility] [place] [facility] Mar 11, 2024 01:40 PM AMBULATORY - MEDICINE [facility] [place] [facility] Mar 25, 2024 11:00 AM AMBULATORY - MEDICINE [facility] [place] [facility] Apr 15, 2024 10:00 AM [facility] Lab Results: +/- 30 days of the encounter This section includes the Chemistry and Hematology Lab Results on record with AR for the patient. Radiology Reports and Pathology Reports are provided separately, in subsequent sections. Lab Results This section contains the Chemistry/Hematology Results that were resulted 30 days before or 30 daysafter the date of the Encounter. Date/Time Source Result Type Result - Unit Interpretation Reference Range Specimen Type Comment Oct 22, 2023 08:57 AM [facility] DRUGS OF ABUSE URINE Specimen Type: URINE [...] Oct 21, 2023 01:38 PM Reporting Lab: [address] [id number] Performing Lab: [address] [id number] AMPHETAMINES SCREEN NONE-DETECTED None-Detected, Cutoff = 1000 [...] and tobacco- related health factors from the AR facility where the Encounter took place. Current Smoking Status This section includes the most current smoking, or tobacco-related health factor, from the AR facility where the Encounter took place. Date/Time Current Smoking Status Comment [facility] Dec 18, 2022 10:00 AM VA-TOBACCO [facility]ER [facility] Tobacco Use History This section includes a history of the smoking, or tobacco-related health factors, that were collected on or before the date of the Encounter. The data comes from the AR facility where the Encounter took place. Date/Time Smoking Status/Tobac co Use Comment Facility Dec 18, 2022 10:00 AM VA-TOBACCO QUIT 15 YRS OR MORE [facility] [place] [facility] Dec 06, 2021 09:30 AM VA-TOBACCO FORMER USER [facility] [place] [facility] Dec 06, 2021 09:30 AM VA-TOBACCO QUIT 15 YRS OR MORE [facility] [place] [facility] Nov 03, 2020 03:30 PM VA-TOBACCO FORMER USER [facility] [place] [facility] Nov 03, 2020 03:30 PM VA-TOBACCO QUIT 15 YRS OR MORE [facility] [place] [facility] Dec 04, 2019 10:30 AM VA-TOBACCO FORMER USER [facility] [place] [facility] Dec 04, 2019 10:30 AM VA-TOBACCO QUIT 15 YRS OR MORE [facility] [place] [facility] May 30, 2018 09:32 AM VA-TOBACCO FORMER USER [facility] [place] [facility] May 30, 2018 09:32 AM VA-TOBACCO QUIT 15 YRS OR MORE [facility] [place] [facility] Nov 29, 2017 09:01 AM VA-TOBACCO FORMER USER [facility] [place] [facility] Nov 29, 2017 09:01 AM VA-TOBACCO QUIT 15 YRS OR MORE [facility] [place] [facility] Dec 13, 2016 08:30 AM LIFETIME NON-TOBACCO USER [facility] [place] [facility] Jul 13, 2015 09:13 PM QUIT TOBACCO USE > 7 YEARS AGO . [facility] [place] [facility] Feb 15, 2009 09:19 AM QUIT TOBACCO USE > 7 YEARS AGO quit when he left service in 1968. [facility] Radiology Reports: +/- 30 days of [...] the Encounter. The data comes from all [place] treatment facilities. Date/Time Radiology Report Provider Source Nov 08, 2023 02:20 PM ULTRASOUND NECK (THYROID,HEAD,SOFT TISSUE): SRAVANTHI BLAND [id number] -[id number] M Exm Date: NOV 08, 2023@14:20 Req Phys: ESTEFANY OVERTON Loc: CWM/NO/PACT EIGHT (Req'g Loc) Img Loc: ULTRASOUND Service: [facility] SARBJIT QUILES [id number] (Case 346 COMPLETE) ULTRASOUND NECK (THYROID,HEAD,SOF(US Detailed) CPT:81382 Reason for Study: thyroid nodule follow up Clinical History: f/u prev ultrasound Report Status: Verified Date Reported: NOV 08, 2023 Date Verified: NOV 08, 2023 Tool Grinder E-Sig:/ES/ELSY STILES JR Report: Study: Thyroid ultrasound. [...] Committee. Tessler et al., Journal of the [place] [employer] 2017;14:587-595. Primary Diagnostic Code: No immediate attention required Primary Interpreting Staff: ELSY STILES JR, Radiologist (Tool Grinder) /ELSY SAAVEDRA JR [facility] Encounter Notes: All associated encounter notes This section contains the clinical notes associated to the Encounter. Date/Time Encounter Note(s) Provider Source May 20, 2024 07:58 AM ADDENDUM: LOCAL TITLE: Addendum STANDARD TITLE: ADDENDUM DATE OF NOTE: MAY 20, 2024@07:58:42 ENTRY DATE: MAY 20, 2024@07:58:42 AUTHOR: LISA VERNON EXP COSIGNER: URGENCY: STATUS: COMPLETED reports changes in reading vision. Please call to offer open access for sooner appt. /zoë/ LISA VERNON OD SCANNING TECH Signed: 05/20/2024 07:59 Receipt Acknowledged By: 05/21/2024 14:45 /es/ AMBIKA BILLY ADVANCED CONSTRUCTION ENGINEER 05/21/2024 13:21 /es/ JAE MAYELA SANCHES --- Original Document --- 11/08/23 OPTOMETRY NOTE: Eye Examination for: SRAVANTHI BLAND, 78 year old WHITE MALE DREA: 9.20.23 Reason for Visit/CC: Patient here for CEE. Reports using the oingtment 1-2 times per day and ATs 3-4 times per day OD and every hour OS. Reports he ran out of lubricating scott and needs more of both meds sent. Would like updated glasses if possible. Denies all other changes or complaints. Current Ocular Meds: Lubricating scott QHS-BID OU PFATs Q1H as needed OU OHx/HPI: 1. T2DM s retinopathy 2. Few macular drusen OU 3. TARA OU 4. NSC OU 5. RE, P OU (-) Pain: (-) BRANCH: (-) Diplopia: (-) Flashes: (-) Floaters: (-) Amaurosis Fugax/Tia's: (-) Eye Injury: (-) Eye Surgery: (-) TBI FOHx: (-) Glaucoma (-) ARMD (-) Blindness MHx: Code Description R69. Liver cyst ([facility] [id number]) Z77.29 Exposure to potentially hazardous substance ([facility] [id number]) K40.91 Left inguinal hernia ([facility] 853351493) M48.02 Spinal stenosis in cervical region ([facility] 28886346) E04.1 Thyroid nodule ([facility] 616811202) R97.20 Elevated PSA ([facility] 347732483) K22.2 Esophageal stricture ([facility] 60954459) F43.10 Posttraumatic stress disorder ([facility] 24699600) G57.10 Meralgia paresthetica ([facility] [id number]) 362.57 Drusen (ICD-9-CM 362.57) E11.9 Type 2 diabetes mellitus ([facility] 55539691) R69. 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 History of colonoscopy ([facility] [id number]) 562.10 Diverticulosis (ICD-9-CM 562.10) V16.0 Family History of Malignant Neoplasm of Gastrointestinal Tract (ICD-9- CM V16.0) E78.00 Hyperlipidemia ([facility] [id number]) 389.9 Hearing Loss (ICD-9-CM 389.9) SYSTEMIC MEDICATIONS/OCULAR MEDICATIONS: Active Outpatient Medications (including Supplies): Active Outpatient Medications Status ========= 1) ATORVASTATIN CALCIUM 20MG TAB TAKE ONE-HALF [...] MOUTH ONCE ACTIVE DAILY NEEDED FOR ANXIETY 7) OXYBUTYNIN CHLORIDE 15MG SA TAB TAKE ONE TABLET BY ACTIVE MOUTH ONCE DAILY FOR BLADDER INSTABILITY ALLERGIES: INTRAVASCULAR CONTRAST MEDIA, METFORMIN, GABAPENTIN, MIRTAZAPINE VITALS (most recent, as listed in the electronic record): B/P: 138/76 (10/15/2023 09:43) Pulse: 78 (10/15/2023 09:00) Temperature: 97.5 F [36.4 C] (10/15/2023 09:00) Weight: 161.7 lb [73.35 kg] (10/15/2023 09:00) Height: 69 in [175.3 cm] (10/15/2023 09:00) BMI: BMI: 23.9 PERTINENT LABS: HEMOGLOBIN A1C TREND Collection DT Spec HGBA1c 09/30/2023 08:32 BLOOD 5.5 04/02/2023 08:20 BLOOD 5.9 H 11/21/2022 08:27 BLOOD 5.7 H 11/27/2021 08:37 BLOOD 5.9 H 04/27/2021 08:26 BLOOD 5.9 H Current Rx with last BCVA: OD: +1.75 20/20 OS: +1.50 20/20 Add: +2.50 20/20 DVA ( )sc ( x )cc - [x]phoropter []specs []CL OD: 20/25+2 OS: 20/15 Entrance Testing: Pupil: PERRL (-)APD EOM: SAFE OU, (-)Pain/Diplopia CVF: FTFC OU Subjective Refraction: OD: +1.25 20/15-2 OS: +1.50 20/15 Add: +2.50 20/20 SLE: Lids/Lashes: clear OU Conjunctiva: white and quiet bulbar conj OU quiet palpebral conj OU Corneas: dense arcus OU Iris: flat and clear OU, (-)NVI/TID OU AC: D & Q OU Angles: 4x4 OU TAP @ 1:54pm OD 11 mmHg OS 11 mmHg [x]Jernigan []iCare []GAT Last IOP: OD: 12 OS: 12 Dilating Drops: 1GTT 1 % Tropicamide OU & 1GTT 2.5% Phenylephrine OU (Pt. ed. on side effects, dilation warning given and verbal consent obtained) Patient advised not to drive if they feel they have any symptoms which could affect their ability to drive safely. Patient advised not to engage in any activities which could put themselves or others at risk if they feel they have any symptoms which could affect their ability to perform those activities safely. Dilated Fundus Exam: Vit: syneresis OU Lens: 2+ NSC OU (-)PXF OU C/D (Size and Rim Description) OD 0.50 pink and healthy OS 0.50 pink and healthy (-)NVD/Drance Heme OU PPole OD clear OS clear (-)DBH/CWS/RAEANN/VB Macula OD flat and clear OS flat and clear (-)CSME OU A/V: normal caliber OU Periphery: flat and intact (-)NVE, holes, tears, detachments 360 OU Assessment/Plan: 1. Type II Diabetes without evidence of retinopathy or macular edema OU. Last A1c 5.5% -Pt ed re today's findings and the possible ocular health and visual complications associated with diabetes as well as importance of attending follow up appointments -Encouraged blood sugar, blood pressure and lipid control as directed by provider managing diabetes. -Pt ed to report any vision changes CHIKA. - repeated back the plan and education. -Monitor 2. Dry Eye Syndrome OU - symptomatic -Pt ed re today's findings -Continue Preservative Free Artificial Tears Q1H as needed OU -Continue Lubricating ointment QHS-BID OU - repeated back the plan and education. -Monitor 3. Nuclear Sclerotic Cataracts OU - not visually significant at present -Pt ed re today's findings and the importance of UV protection -Pt ed cataracts may cause reduction of BCVA and symptoms of glare -RTC sooner if vision declines or interferes with ADLs -[place] repeated back the plan and education. -Monitor 4. Refractive Error and Presbyopia OU -Rx updated and ordered per pt request PALx2 -Monitor 5. Low risk open-angle glaucoma suspect OU. Moderate cupping with larger cupe than previously described, likely interexaminer differences in grading. No evidence of pigment dispersion or pseudoexfoliation OU. No known family history of glaucoma. -Pt ed re today's findings -Pt ed re glaucoma as well as the natural history of this diagnosis including prognosis. -Stress importance of continued follow-up appointments - repeated back the plan and education. -RTC 1 year with imaging RTC 1 year or earlier PRN (x)Appointment with coordinated visual imaging (x) HVF 24-2 (x) RNFL OCT (x) Macular OCT (x) Pachymetry Glasses adjusted/repaired in office: () Yes (x) No If yes, how many pairs: Education: Diabetes: Patient was educated regarding diabetes and related ocular complications including retinopathy and cataract formation as well as other related systemic complications. The importance of good blood sugar control, blood sugar testing as recommended by their PCP and the importance of timely follow up were all emphasized. Glaucoma: Patient was educated regarding glaucoma/glaucoma suspect as well as the natural history of this diagnosis including prognosis. Stress importance of compliance and persistency with glaucoma medication when prescribed, timely follow up as well as the role of ancillary testing. Exclusion criteria for ancillary testing include significantly reduced acuity, mental status changes affecting the patient's ability to attend to the test or other physical limitations that would prohibit the patient's ability to participate in testing. Medication Reconciliation: Outpatient: Has the patient been taking medications as documented in the EMLR? YES: The patient has been taking medications as documented in the EMLR. Essential Medication List for Review used to complete this medication reconciliation. INCLUDED IN THIS LIST: Alphabetical list of active outpatient prescriptions dispensed from this [facility] (local) and dispensed from another [place] or [facility] facility (remote) as well as inpatient orders (local, pending and active), local clinic medications, locally documented non-VA medications, and local prescriptions that have or been discontinued in the past 90 days. - All changes in medications, including all non-VA/Herbal/OTC medications were entered into CPRS. - If there were any medications the patient should no longer take, they were discontinued. - The patient/caregiver was instructed to update this list, discard old lists, and take this list to the next appointment, whether with a VA or non-VA provider. Medication List: JLV Link Data on this list may not be complete. Please check JLV. Allergies/ADRs (Tool #5) FACILITY ALLERGY/ADR -------- No Remote Allergy/ADR Data available for this patient [facility] [place] [facility] GABAPENTIN [facility] INTRAVASCULAR CONTRAST MEDIA [facility] METFORMIN [facility] [place] [facility] MIRTAZAPINE Med. Reconciliation (Tool #1) INCLUDED IN THIS LIST: Alphabetical list of active outpatient prescriptions dispensed from this AR (local) and dispensed from another [place] or [facility] facility (remote) as well as inpatient orders (local pending and active), local clinic medications, locally documented non-VA medications, and local prescriptions that have or been discontinued in the past 90 days. Non-VA Meds Last Documented On: May 15, 2021 NOTE The display of VA prescriptions dispensed from another AR or [facility] facility (remote) is limited to active outpatient prescription entries matched to National Drug File at the originating site and may not include some items such as investigational drugs, compounds, etc. NOT INCLUDED IN THIS LIST: Medications self-entered by the patient into personal health records (i.e. [employer]) are NOT included in this list. Non-VA medications documented outside this AR, remote inpatient orders (regardless of status) and remote clinic medications are NOT included in this list. The patient and provider must always discuss medications the patient is taking, regardless of where the medication was dispensed or obtained. -------- OUTPT ATORVASTATIN CALCIUM 20MG TAB (Status = Active) TAKE ONE-HALF TABLET BY MOUTH ONCE DAILY FOR HIGH CHOLESTEROL Rx# [id number] Last Released: 04/18/23 Qty/Days Supply: 45 Rx Expiration Date: 04/16/24 Refills Remainin Indication: FOR HIGH CHOLESTEROL OUTPT CARBOXYMETHYLCELLULOSE UD 0.5%(PF)OP RAZA (Status = Active/Suspended) INSTILL 1 DROP INTO EACH EYE EVERY 2 HOURS WHILE AWAKE Rx# [id number] Last Released: 08/24/23 Qty/Days Supply: 100/30 Rx Expiration Date: 08/20/24 Refills Remainin Indication: FOR DRY EYE OUTPT DOCUSATE NA 50MG/SENNOSIDES 8.6MG TAB (Status = Active) TAKE 2 TABLETS BY MOUTH ONCE DAILY FOR CONSTIPATION Rx# [id number] Last Released: 03/26/23 Qty/Days Supply: 100 Rx Expiration Date: 03/26/24 Refills Remainin Indication: FOR CONSTIPATION OUTPT LORAZEPAM 0.5MG TAB (Status = ) TAKE ONE TABLET BY MOUTH ONCE DAILY NEEDED FOR ANXIETY/NERVES Rx# [id number] Last Released: 07/03/23 Qty/Days Supply: Rx Expiration Date: 08/22/23 Refills Remainin Indication: FOR ANXIETY OUTPT LORAZEPAM 0.5MG TAB (Status = Active) TAKE ONE TABLET BY MOUTH ONCE DAILY NEEDED FOR ANXIETY Rx# [id number] Last Released: 10/25/23 Qty/Days Supply: Rx Expiration Date: 11/20/23 Refills Remainin Indication: FOR ANXIETY OUTPT LUBRICATING (PF) OPH OINT (Status = Active/Suspended) APPLY THIN RIBBON INTO EACH EYE TWICE DAILY Rx# [id number] Last Released: Supply: Rx Expiration Date: 11/08/24 Refills Remainin Indication: FOR DRY EYE OUTPT OXYBUTYNIN CHLORIDE 15MG SA TAB (Status = Active) TAKE ONE TABLET BY MOUTH ONCE DAILY FOR BLADDER INSTABILITY Rx# [id number] Last Released: 11/08/23 Qty/Days Supply: Rx Expiration Date: 11/07/24 Refills Remainin Indication: FOR FREQUENT URINATION -------- SUPPLIES -------- OUTPT INCONT LINER DEPEND GUARDS (Status = Active) USE 1 PAD TOPICALLY ONCE DAILY Rx# [id number] Last Released: 10/15/23 Qty/Days Supply: Rx Expiration Date: 08/02/24 Refills Remainin OUTPT INCONT LINER DIGNITY PLUS SUPER ABSORB (Status = Active) USE 1 PAD TOPICALLY FOUR TIMES DAILY NEEDED Rx# [id number] Last Released: 08/05/23 Qty/Days Supply: Rx Expiration Date: 12/27/23 Refills Remainin Indication: BPH PHARMACY TERMS AND POSSIBLE PATIENT ACTIONS INPT = AR inpatient order IV = AR intravenous medication OUTPT = AR outpatient prescription PHARMACY POSSIBLE PATIENT TERMS EXPLANATION ACTIONS -------- ACTIVE A prescription that can be If you have refills, filled at the local AR pharmacy. you may request a refill of this prescription from your VA pharmacy. CLINIC A medication you received during If you have questions a visit to a VA clinic or about this medication emergency department. contact your VA healthcare team. DISCONTINUED A prescription your provider has Contact your VA stopped. It is no longer healthcare team if you available to be sent to you or need more of this picked up at the AR pharmacy medication. window. A prescription which is too old Contact your VA to fill. This does not refer to healthcare team if you the expiration date of the need more of this medication in the container. medication. NON-VA A medication that came from If this medication someplace other than a VA information is pharmacy. This may be a incorrect or out of prescription from either the VA date, please tell your or non VA providers that was VA healthcare team. filled outside the VA. Or, it may be an mwef-mhj-fmzrsad (OTC), herbal, dietary supplements or sample medication. ON HOLD An active prescription that will Contact your VA not be filled until pharmacy pharmacy when you need resolves the issue. more of this medication. PARKED An active prescription that will Contact your VA not be filled until the patient pharmacy when you need requests it. this medication. PENDING This prescription order has been If you have been sent to the pharmacy for review instructed to start and is not ready yet. this medication now, contact your VA pharmacy. SUSPENDED An active prescription that is Contact your VA not scheduled to be filled yet. pharmacy if you need You should receive it before this medication now. you run out. == (x) Printed Medication Reconciliation List Offered and Declined by () Medication Reconciliation List Printed for at Exam () Optometry HT Please Print and Mail Copy of Medication Reconciliation List () [facility]MSA Please Print and Mail Copy of Medication Reconciliation List /zoë/ LISA VERNON OD SCANNING TECH Signed: 11/08/2023 16:24 05/21/2024 ADDENDUM STATUS: COMPLETED [facility] called and spoke to the to reschedule appointments. Rescheduled veterans and optometry appointment for 05/27/2024 at 2:00pm and 2:30pm. [place] aware and agreeable. /es/ JAE SANCHES Signed: 05/21/2024 13:38 LISA VERNON [facility] [facility] [place] [facility] Nov 08, 2023 08:14 AM OPTOMETRY NOTE: LOCAL TITLE: OPTOMETRY NOTE STANDARD TITLE: OPTOMETRY NOTE DATE OF NOTE: NOV 08, 2023@08:14 ENTRY DATE: NOV 08, 2023@08:14:12 AUTHOR: LISA VERNON EXP COSIGNER: URGENCY: STATUS: COMPLETED OPTOMETRY NOTE Has ADDENDA Eye Examination for: SRAVANTHI BLAND, 78 year old WHITE MALE DREA: 9[birth year] Reason for Visit/CC: Patient here for CEE. Reports using the oingtment 1-2 times per day and ATs 3-4 times per day OD and every hour OS. Reports he ran out of lubricating scott and needs more of both meds sent. Would like updated glasses if possible. Denies all other changes or complaints. Current Ocular Meds: Lubricating scott QHS-BID OU PFATs Q1H as needed OU OHx/HPI: 1. T2DM s retinopathy 2. Few macular drusen OU 3. TARA OU 4. NSC OU 5. RE, P OU (-) Pain: (-) BRANCH: (-) Diplopia: (-) Flashes: (-) Floaters: (-) Amaurosis Fugax/Tia's: (-) Eye Injury: (-) Eye Surgery: (-) TBI FOHx: (-) Glaucoma (-) ARMD (-) Blindness MHx: Code Description R69. Liver cyst ([facility] [id number]) Z77.29 Exposure to potentially hazardous substance ([facility] [id number]) K40.91 Left inguinal hernia ([facility] [id number]) M48.02 Spinal stenosis in cervical region ([facility] [id number]) E04.1 Thyroid nodule ([facility] [id number]) R97.20 Elevated PSA ([facility] [id number]) K22.2 Esophageal stricture ([facility] [id number]) F43.10 Posttraumatic stress disorder ([facility] [id number]) G57.10 Meralgia paresthetica ([facility] [id number]) 362.57 Drusen (ICD-9-CM 362.57) E11.9 Type 2 diabetes mellitus ([facility] [id number]) 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 History of colonoscopy ([facility] [id number]) 562.10 Diverticulosis (ICD-9-CM 562.10) V16.0 Family History of Malignant Neoplasm of Gastrointestinal Tract (ICD-9- CM V16.0) E78.00 Hyperlipidemia ([facility] [id number]) 389.9 Hearing Loss (ICD-9-CM 389.9) SYSTEMIC MEDICATIONS/OCULAR MEDICATIONS: Active Outpatient Medications (including Supplies): Active Outpatient Medications Status ========= 1) ATORVASTATIN CALCIUM 20MG TAB TAKE ONE-HALF [...] MOUTH ONCE ACTIVE DAILY NEEDED FOR ANXIETY 7) OXYBUTYNIN CHLORIDE 15MG SA TAB TAKE ONE TABLET BY ACTIVE MOUTH ONCE DAILY FOR BLADDER INSTABILITY ALLERGIES: INTRAVASCULAR CONTRAST MEDIA, METFORMIN, GABAPENTIN, MIRTAZAPINE VITALS (most recent, as listed in the electronic record): B/P: 138/76 (10/15/2023 09:43) Pulse: 78 (10/15/2023 09:00) Temperature: 97.5 F [36.4 C] (10/15/2023 09:00) Weight: 161.7 lb [73.35 kg] (10/15/2023 09:00) Height: 69 in [175.3 cm] (10/15/2023 09:00) BMI: BMI: 23.9 PERTINENT LABS: HEMOGLOBIN A1C TREND Collection DT Spec HGBA1c 09/30/2023 08:32 BLOOD 5.5 04/02/2023 08:20 BLOOD 5.9 H 11/21/2022 08:27 BLOOD 5.7 H 11/27/2021 08:37 BLOOD 5.9 H 04/27/2021 08:26 BLOOD 5.9 H Current Rx with last BCVA: OD: +1.75 20/20 OS: +1.50 20/20 Add: +2.50 20/20 DVA ( )sc ( x )cc - [x]phoropter []specs []CL OD: 20/25+2 OS: 20/15 Entrance Testing: Pupil: PERRL (-)APD EOM: SAFE OU, (-)Pain/Diplopia CVF: FTFC OU Subjective Refraction: OD: +1.25 20/15-2 OS: +1.50 20/15 Add: +2.50 20/20 SLE: Lids/Lashes: clear OU Conjunctiva: white and quiet bulbar conj OU quiet palpebral conj OU Corneas: dense arcus OU Iris: flat and clear OU, (-)NVI/TID OU AC: D & Q OU Angles: 4x4 OU TAP @ 1:54pm OD 11 mmHg OS 11 mmHg [x]Jernigan []iCare []GAT Last IOP: OD: 12 OS: 12 Dilating Drops: 1GTT 1 % Tropicamide OU & 1GTT 2.5% Phenylephrine OU (Pt. ed. on side effects, dilation warning given and verbal consent obtained) Patient advised not to drive if they feel they have any symptoms which could affect their ability to drive safely. Patient advised not to engage in any activities which could put themselves or others at risk if they feel they have any symptoms which could affect their ability to perform those activities safely. Dilated Fundus Exam: Vit: syneresis OU Lens: 2+ NSC OU (-)PXF OU C/D (Size and Rim Description) OD 0.50 pink and healthy OS 0.50 pink and healthy (-)NVD/Drance Heme OU PPole OD clear OS clear (-)DBH/CWS/RAEANN/VB Macula OD flat and clear OS flat and clear (-)CSME OU A/V: normal caliber OU Periphery: flat and intact (-)NVE, holes, tears, detachments 360 OU Assessment/Plan: 1. Type II Diabetes without evidence of retinopathy or macular edema OU. Last A1c 5.5% -Pt ed re today's findings and the possible ocular health and visual complications associated with diabetes as well as importance of attending follow up appointments -Encouraged blood sugar, blood pressure and lipid control as directed by provider managing diabetes. -Pt ed to report any vision changes CHIKA. -[place] repeated back the plan and education. -Monitor 2. Dry Eye Syndrome OU - symptomatic -Pt ed re today's findings -Continue Preservative Free Artificial Tears Q1H as needed OU -Continue Lubricating ointment QHS-BID OU - repeated back the plan and education. -Monitor 3. Nuclear Sclerotic Cataracts OU - not visually significant at present -Pt ed re today's findings and the importance of UV protection -Pt ed cataracts may cause reduction of BCVA and symptoms of glare -RTC sooner if vision declines or interferes with ADLs -[place] repeated back the plan and education. -Monitor 4. Refractive Error and Presbyopia OU -Rx updated and ordered per pt request PALx2 -Monitor 5. Low risk open-angle glaucoma suspect OU. Moderate cupping with larger cupe than previously described, likely interexaminer differences in grading. No evidence of pigment dispersion or pseudoexfoliation OU. No known family history of glaucoma. -Pt ed re today's findings -Pt ed re glaucoma as well as the natural history of this diagnosis including prognosis. -Stress importance of continued follow-up appointments -[place] repeated back the plan and education. -RTC 1 year with imaging RTC 1 year or earlier PRN (x)Appointment with coordinated visual imaging (x) HVF 24-2 (x) RNFL OCT (x) Macular OCT (x) Pachymetry Glasses adjusted/repaired in office: () Yes (x) No If yes, how many pairs: Education: Diabetes: Patient was educated regarding diabetes and related ocular complications including retinopathy and cataract formation as well as other related systemic complications. The importance of good blood sugar control, blood sugar testing as recommended by their PCP and the importance of timely follow up were all emphasized. Glaucoma: Patient was educated regarding glaucoma/glaucoma suspect as well as the natural history of this diagnosis including prognosis. Stress importance of compliance and persistency with glaucoma medication when prescribed, timely follow up as well as the role of ancillary testing. Exclusion criteria for ancillary testing include significantly reduced acuity, mental status changes affecting the patient's ability to attend to the test or other physical limitations that would prohibit the patient's ability to participate in testing. Medication Reconciliation: Outpatient: Has the patient been taking medications as documented in the EMLR? YES: The patient has been taking medications as documented in the EM. Essential Medication List for Review used to complete this medication reconciliation. INCLUDED IN THIS LIST: Alphabetical list of active outpatient prescriptions dispensed from this [facility] (local) and dispensed from another [place] or [facility]D facility (remote) as well as inpatient orders (local, pending and active), local clinic medications, locally documented non-VA medications, and local prescriptions that have or been discontinued in the past 90 days. - All changes in medications, including all non-VA/Herbal/OTC medications were entered into CPRS. - If there were any medications the patient should no longer take, they were discontinued. - The patient/caregiver was instructed to update this list, discard old lists, and take this list to the next appointment, whether with a VA or non-VA provider. Medication List: JLV Link Data on this list may not be complete. Please check JLV. Allergies/ADRs (Tool #5) FACILITY ALLERGY/ADR -------- No Remote Allergy/ADR Data available for this patient [facility]IN [facility] INTRAVASCULAR CONTRAST MEDIA [facility] METFORMIN [facility] MIRTAZAPINE Med. Reconciliation (Tool #1) INCLUDED IN THIS LIST: Alphabetical list of active outpatient prescriptions dispensed from this [facility] (local) and dispensed from another [place] or [facility] facility (remote) as well as inpatient orders (local pending and active), local clinic medications, locally documented non-VA medications, and local prescriptions that have or been discontinued in the past 90 days. Non-VA Meds Last Documented On: May 15, 2021 NOTE The display of VA prescriptions dispensed from another [place] or DoD facility (remote) is limited to active outpatient prescription entries matched to National Drug File at the originating site and may not include some items such as investigational drugs, compounds, etc. NOT INCLUDED IN THIS LIST: Medications self-entered by the patient into personal health records (i.e. [employer]) are NOT included in this list. Non-VA medications documented outside this [place], remote inpatient orders (regardless of status) and remote clinic medications are NOT included in this list. The patient and provider must always discuss medications the patient is taking, regardless of where the medication was dispensed or obtained. -------- OUTPT ATORVASTATIN CALCIUM 20MG TAB (Status = Active) TAKE ONE-HALF TABLET BY MOUTH ONCE DAILY FOR HIGH CHOLESTEROL Rx# [id number] Last Released: 04/18/23 Qty/Days Supply: Rx Expiration Date: 04/16/24 Refills Remainin Indication: FOR HIGH CHOLESTEROL OUTPT CARBOXYMETHYLCELLULOSE UD 0.5%(PF)OP RAZA (Status = Active/Suspended) INSTILL 1 DROP INTO EACH EYE EVERY 2 HOURS WHILE AWAKE Rx# [id number] Last Released: 08/24/23 Qty/Days Supply: Rx Expiration Date: 08/20/24 Refills Remainin Indication: FOR DRY EYE OUTPT DOCUSATE NA 50MG/SENNOSIDES 8.6MG TAB (Status = Active) TAKE 2 TABLETS BY MOUTH ONCE DAILY FOR CONSTIPATION Rx# [id number] Last Released: 03/26/23 Qty/Days Supply: Rx Expiration Date: 03/26/24 Refills Remainin Indication: FOR CONSTIPATION OUTPT LORAZEPAM 0.5MG TAB (Status = ) TAKE ONE TABLET BY MOUTH ONCE DAILY NEEDED FOR ANXIETY/NERVES Rx# [id number] Last Released: 07/03/23 Qty/Days Supply: Rx Expiration Date: 08/22/23 Refills Remainin Indication: FOR ANXIETY OUTPT LORAZEPAM 0.5MG TAB (Status = Active) TAKE ONE TABLET BY MOUTH ONCE DAILY NEEDED FOR ANXIETY Rx# [id number] Last Released: 10/25/23 Qty/Days Supply: Rx Expiration Date: 11/20/23 Refills Remainin Indication: FOR ANXIETY OUTPT LUBRICATING (PF) OPH OINT (Status = Active/Suspended) APPLY THIN RIBBON INTO EACH EYE TWICE DAILY Rx# [id number] Last Released: Supply: Rx Expiration Date: 11/08/24 Refills Remainin Indication: FOR DRY EYE OUTPT OXYBUTYNIN CHLORIDE 15MG SA TAB (Status = Active) TAKE ONE TABLET BY MOUTH ONCE DAILY FOR BLADDER INSTABILITY Rx# [id number] Last Released: 11/08/23 Qt Supply: Rx Expiration Date: 11/07/24 Refills Remainin Indication: FOR FREQUENT URINATION -------- SUPPLIES -------- OUTPT INCONT LINER DEPEND GUARDS (Status = Active) USE 1 PAD TOPICALLY ONCE DAILY Rx# [id number] Last Released: 10/15/23 Qt Supply: Rx Expiration Date: 08/02/24 Refills Remainin OUTPT INCONT LINER DIGNITY PLUS SUPER ABSORB (Status = Active) USE 1 PAD TOPICALLY FOUR TIMES DAILY NEEDED Rx# [id number] Last Released: 08/05/23 Qty Supply: Rx Expiration Date: 12/27/23 Refills Remainin Indication: BPH PHARMACY TERMS AND POSSIBLE PATIENT ACTIONS INPT = [place] inpatient order IV = AR intravenous medication OUTPT = AR outpatient prescription PHARMACY POSSIBLE PATIENT TERMS EXPLANATION ACTIONS -------- ACTIVE A prescription that can be If you have refills, filled at the local VA pharmacy. you may request a refill of this prescription from your VA pharmacy. CLINIC A medication you received during If you have questions a visit to a VA clinic or about this medication emergency department. contact your VA healthcare team. DISCONTINUED A prescription your provider has Contact your VA stopped. It is no longer healthcare team if you available to be sent to you or need more of this picked up at the VA pharmacy medication. window. A prescription which is too old Contact your VA to fill. This does not refer to healthcare team if you the expiration date of the need more of this medication in the container. medication. NON-VA A medication that came from If this medication someplace other than a VA information is pharmacy. This may be a incorrect or out of prescription from either the VA date, please tell your or non VA providers that was VA healthcare team. filled outside the VA. Or, it may be an nlab-vrv-zdlfinm (OTC), herbal, dietary supplements or sample medication. ON HOLD An active prescription that will Contact your VA not be filled until pharmacy pharmacy when you need resolves the issue. more of this medication. PARKED An active prescription that will Contact your VA not be filled until the patient pharmacy when you need requests it. this medication. PENDING This prescription order has been If you have been sent to the pharmacy for review instructed to start and is not ready yet. this medication now, contact your VA pharmacy. SUSPENDED An active prescription that is Contact your VA not scheduled to be filled yet. pharmacy if you need You should receive it before this medication now. you run out. == (x) Printed Medication Reconciliation List Offered and Declined by () Medication Reconciliation List Printed for [place] at Exam () Optometry HT Please Print and Mail Copy of Medication Reconciliation List () [facility] Please Print and Mail Copy of Medication Reconciliation List /es/ LISA VERNON OD SCANNING TECH Signed: 11/08/2023 16:24 05/20/2024 ADDENDUM STATUS: COMPLETED [place] reports changes in reading vision. Please call to offer open access for sooner appt. /zoë/ LISA VERNON OD SCANNING TECH Signed: 05/20/2024 07:59 Receipt Acknowledged By: * AWAITING SIGNATURE * AMBIKA BILLY 05/21/2024 13:21 /zoë/ JAE SANCHES 05/21/2024 ADDENDUM STATUS: COMPLETED [facility] called and spoke to the to reschedule appointments. Rescheduled veterans and optometry appointment for 05/27/2024 at 2:00pm and 2:30pm. [place] aware and agreeable. /zoë/ JAE SANCHES Signed: 05/21/2024 13:38 [facility]ERN[facility]
--- OUTSIDE RECORDS SUMMARY | 2023-11-11 10:00 | XMS_ITS ---
Author Name [facility] [place] Organization [facility] [place] Address [address] [place] [address] Care Team Providers Care Supervisor Printing And Stamping Name Role Phone ESTEFANY RESTREPO Primary Care Provider Unavailabl e Insurance Providers: All historical and current [...] Name Patient's Relationship to Policy Flores GHISLAINE [facility] PREFERRED PROVIDER ORGANIZAT ION (PPO) BASIC FAMIL Y Feb 23, 2001 [id number] [phone] Priya BLAND SPOUSE ANTHEM BCBS FEP PREFERRED PROVIDER ORGANIZAT ION (PPO) FEP BASIC FAMIL Y Feb 23, 2001 112 [id number] [phone] EDWINA SPOUSE GHISLAINE FEP PREFERRED PROVIDER ORGANIZAT ION (PPO) FEP BASIC FAMIL Y Feb 23, 2001 [id number] [phone] Priya BLAND SPOUSE [place] FEP PREFERRED PROVIDER ORGANIZAT ION (PPO) BASIC FAMIL Y Feb 23, 2001 [id number] Priya BLAND SPOUSE [place] FEDERAL PREFERRED PROVIDER ORGANIZAT ION (PPO) BASIC FAMIL Y Feb 23, 2001 112 [id number] [phone] Priya BLAND SPOUSE [place] FEP ([id number]) PRESCRIPT ION FEP RX Feb 23, 2001 [id number] [phone] Priya BLAND SPOUSE [place] FEP BCBS PRESCRIPT ION CAREM ARK FEPRX Feb 11, 2010 [id number] [phone] Priya BLAND SPOUSE [place]ARK-F EP BCBS PRESCRIPT ION BCBS FEP PLAN Feb 11, 2010 [id number] Priya BLAND SPOUSE MEDICARE (WN) MEDICARE () PART B Feb 11, 2015 PART B [id number] [facility] [place],F RANK PATIENT MEDICARE (WN) MEDICARE () PART B Feb 11, 2015 PART B [id number] [facility] [place],F RANK PATIENT MEDICARE (WNR) MEDICARE () PART B Feb 11, 2015 PART B [id number] [id number] [place],F RANK PATIENT MEDICARE (WN) MEDICARE () PART B Feb 11, 2015 PART B [id number] [facility] [phone] [place],F RANK PATIENT MEDICARE (WNR) MEDICARE () PART B Feb 11, 2015 PART B [id number] [id number] [place],F RANK PATIENT MEDICARE (WNR) MEDICARE () PART A Apr 11, 2012 PART A [id number] [facility] [place],F RANK PATIENT MEDICARE (WNR) MEDICARE () PART A Apr 11, 2012 PART A [id number] [facility] [place],F RANK PATIENT MEDICARE (WNR) MEDICARE () PART A Apr 11, 2012 PART A [id number] [facility] [phone] [place],F RANK PATIENT MEDICARE (WNR) MEDICARE () PART A Apr 11, 2012 PART A [id number] Sae BLAND RANK PATIENT MEDICARE (WNR) MEDICARE (M) PART A Apr 11, 2012 PART A [id number] [phone] Sae BLAND PATIENT Selected Encounter This section includes the information on record at [place] for the Encounter. Date/Time Encounter Type Encounter Description Reason Provider Source Nov 11, 2023 02:00 PM OFFICE O/P EST MOD 30 MIN PRIMARY CARE/MEDICINE ICD-10-CM R32 Unspecified urinary incontinence FURCOLO,ESTEFANY IHE Encounter Template Text not used by DC Assessments - Encounter Diagnoses This section includes the primary and secondary diagnoses documented for the Encounter. Date/Time Primary/Secondary Diagnosis Diagnosis Name Provider Source Nov 24, 2023 10:38 AM PRIMARY Unspecified urinary incontinence FURCOLO,ESTEFANY [facility] [place] [facility] Nov 24, 2023 10:38 AM SECONDARY Other insomnia FURCOLO,ESTEFANY [facility] [place] [facility] Plan of Treatment: Future Appointments (+ 6 months) and Future Tests (+/- 45 days) The Plan of Treatment section includes future care activities for the patient from all [place] treatmentfadoctors hospital. This section includes future appointments and future orders which are active, pending or scheduled. Future Appointments This section includes appointments that were scheduled to occur 6 months from the date of the Encounter, up to a maximum of 20 appointments. The data comes from all [place] treatment facilities. Appointment Date/Time Appointment Type Appointme nt Facility Name Dec 05, 2023 03:00 PM AMBULATORY - PSYCHIATRY [facility] [place] [facility] Dec 11, 2023 11:30 AM AMBULATORY - MEDICINE [place] [facility] [place] [facility] Dec 17, 2023 09:00 AM AMBULATORY - NONE [facility] [place] [facility] Dec 20, 2023 10:30 AM AMBULATORY - NONE [facility] [place] [facility] Jan 01, 2024 02:30 PM AMBULATORY - REHAB MEDICIN E [facility] [place] [facility] Jan 22, 2024 09:00 AM AMBULATORY - MEDICINE [facility] [place] [facility] Feb 19, 2024 10:40 AM AMBULATORY - MEDICINE [place] [facility] [place] [facility] Mar 11, 2024 01:40 PM AMBULATORY - MEDICINE [facility] [place] Mar 25, 2024 11:00 AM AMBULATORY - MEDICINE [facility] [place] Apr 15, 2024 10:00 AM AMBULATORY - MEDICINE [facility] [place] Lab Results: +/- 30 days of the encounter This section includes the Chemistry and Hematology Lab Results on record with DC for the patient. Radiology Reports and Pathology Reports are provided separately, in subsequent sections. Lab Results This section contains the Chemistry/Hematology Results that were resulted 30 days before or 30 daysafter the date of the Encounter. Date/Time Source Result Type Result - Unit Interpretation Reference Range Specimen Type Comment Oct 22, 2023 08:57 AM [facility] DRUGS OF ABUSE URINE Specimen Type: URINE [...] NOT SENT BY LAB. Ordering Provider: ESTEFANY RESTREPO Report Released Date/Time: Oct 21, 2023 01:38 PM Reporting Lab: [address] [id number] Performing Lab: [address] [id number] AMPHETAMINES SCREEN NONE-DETECTED None-Detected, Cutoff = 1000 [...] 203.20 mg/dL >20 SP.GRAVITY, ANSHU 1.020 1.003-1.020 Vital Signs: All taken on the encounter date This section contains inpatient and outpatient Vital Signs collected on the date of the Encounter. Date/Time Temperature Pulse Blood Pressure Respiratory Rate SP02 Pain Height Weight Body Mass Index Source Nov 11, 2023 02:09 PM 98.6 70 128/84 16 99 0 160 24 [place] [facility] [place] [facility] Social History: Smoking Status (Most current) and Tobacco Use (All prior to encounter date) This section includes the most current, and the historical, smoking and tobacco- related health factors from the [place] facility where the Encounter took place. Current Smoking Status This section includes the most current smoking, or tobacco-related health factor, from the [place] facility where the Encounter took place. Date/Time Current Smoking Status Comment [facility] Dec 18, 2022 10:00 AM VA-TOBACCO FORMER USER [facility] Tobacco Use History This section includes a history of the smoking, or tobacco-related health factors, that were collected on or before the date of the Encounter. The data comes from the [place] facility where the Encounter took place. Date/Time Smoking Status/Tobac co Use Comment Facility Dec 18, 2022 10:00 AM VA-TOBACCO QUIT 15 YRS OR MORE [facility] [place] [facility] Dec 06, 2021 09:30 AM VA-TOBACCO FORMER USER [place] [facility] [place] [facility] Dec 06, 2021 09:30 AM VA-TOBACCO QUIT 15 YRS OR MORE [facility] [place] [facility] Nov 03, 2020 03:30 PM VA-TOBACCO FORMER USER [place] [facility] [place] [facility] Nov 03, 2020 03:30 PM VA-TOBACCO QUIT 15 YRS OR MORE [facility] [place] [facility] Dec 04, 2019 10:30 AM VA-TOBACCO FORMER USER [place] [facility] [place] [facility] Dec 04, 2019 10:30 AM VA-TOBACCO QUIT 15 YRS OR MORE [facility] May 30, 2018 09:32 AM [facility] May 30, 2018 09:32 AM VA-TOBACCO QUIT 15 YRS OR MORE [facility] Nov 29, 2017 09:01 AM VA-TOBACCO [facility] Nov 29, 2017 09:01 AM VA-TOBACCO QUIT 15 YRS OR MORE [facility] Dec 13, 2016 08:30 AM LIFETIME NON-TOBACCO USER [facility] Jul 13, 2015 09:13 PM QUIT TOBACCO USE > 7 YEARS AGO . [facility] Feb 15, 2009 09:19 AM QUIT TOBACCO USE > 7 YEARS AGO quit when he left service in 1968. [facility] Radiology Reports: +/- 30 days of the [...] the Encounter. The data comes from all [place] treatment facilities. Date/Time Radiology Report Provider Source Nov 08, 2023 02:20 PM ULTRASOUND NECK (THYROID,HEAD,SOFT TISSUE): EWAJAZZYARYAN KAN [id number] [facility]1945 M Ex Date: NOV 08, 2023@14:20 Req Phys: ESTEFANY RESTREPO Loc: CWM/NO/PACT EIGHT (Req'g Loc) Img Loc: ULTRASOUND Service: Unknown [facility] [place] [address] (Case [id number] COMPLETE) ULTRASOUND NECK (THYROID,HEAD,SOF(US Detailed) CPT:86957 Reason for Study: thyroid nodule follow up Clinical History: f/u prev ultrasound Report Status: Verified Date Reported: NOV 08, 2023 Date Verified: NOV 08, 2023 Metal Stamper E-Sig:/ES/EDWARD A STILES JR Report: Study: Thyroid ultrasound. Comparison: [...] (TI-RADS): White Paper of the TI-RADS Committee. Dahianasler et al., Journal of the [employer] 2017;14:587-595. Primary Diagnostic Code: No immediate attention required Primary Interpreting Staff: ELSY STILES JR, Radiologist (Metal Stamper) /ELSY SAAVEDRA JR [facility] Encounter Notes: All associated encounter notes This section contains the clinical notes associated to the Encounter. Date/Time Encounter Note(s) Provider Source Jan 27, 2024 05:26 PM ADMINISTRATIVE NOTE: LOCAL TITLE: FAX/MAIL RECEIVED STANDARD TITLE: ADMINISTRATIVE NOTE DATE OF NOTE: JAN 27, 2024@17:26 ENTRY DATE: JAN 27, 2024@17:27 AUTHOR: MADELINE DAO EXP COSIGNER: URGENCY: STATUS: COMPLETED Document Received On: Dec Document Type: Office Visit Note Date of Service: Nov Facility and or Provider: [facility] Radiology Contact Information: PCP of Record: ESTEFANY RESTREPO Next visit with PCP: 04/15/2024 10:00 CWM/NO/PACT EIGHT 08/25/2024 10:00 CWM/NO/DERMATOLOGY CARGO SURVEYOR AM 11/11/2024 10:00 NHM/OPT/VISUAL IMAGING 11/11/2024 10:30 NHM/OPTOMETRY/VERNON/ Primary Care May keep copies of this document for up to 14 days and send the original for scanning. diana [facility] Radiology Safety Net Team Imaging Report: CT Lissa Head and Neck Result Date: 12/09/2023 CT ANGIO HEAD WITH AND WITHOUT CONTRAST, CT ANGIO NECK WITH CONTRAST Referring clinician's provided indication for this examination in Epic: * Stroke/TIA, assess intracranial arteries TECHNIQUE:* Multidetector-row CTA of the head was performed before and after administration of intravenous contrast using tailored dose modulation techniques. Images were reconstructed in the axial, coronal, and sagittal planes, including angiographic image post-processing. 3D angiographic images with reformatting and post-processing reconstructions were performed and interpreted. * Multidetector-row CTA of the neck was performed after administration of intravenous contrast using tailored dose modulation techniques. Images were reconstructed in the axial, coronal, and sagittal planes. 3D angiographic images with reformatting and post-processing reconstructions were performed and interpreted. COMPARISON: CT HEAD WITHOUT CONTRAST FINDINGS: CT HEAD: Brain Parenchyma: Normal. No midline shift, mass effect, parenchymal hemorrhage, or evidence of acute territorial infarct. No enhancing abnormality. Ventricular System and Extra-Axial Spaces: Normal. No extra-axial fluid collections. Basilar cisterns are patent. No hydrocephalus. Extracranial Structures: Normal. No significant paranasal sinus disease. No orbital abnormality. No calvarial lesions. CTA HEAD: Anterior Circulation: The internal carotid are symmetric, normal in size and enhancement. No significant stenosis or aneurysmal enlargement. Anterior cerebral arteries are well opacified without stenosis or aneurysmal enlargement in the anterior communicating artery is patent. Bilateral middle cerebral arteries are well opacified, without significant stenosis or aneurysmal enlargement. Posterior Circulation: The left vertebral artery is dominant. Both vertebral arteries are patent. The basilar artery is patent, no stenosis or aneurysmal enlargement. There is good opacification of both posterior cerebral arteries without stenosis or aneurysmal enlargement. Venous Structures: No venous sinus thrombosis. Overall well opacified. CTA NECK: Aortic Arch and Origin of Major Cervical Vessels: The thoracic aorta arch is normal in size. There is good opacification of the great vessels arising from the arch. Right Common Carotid Artery: No significant stenosis. Mild intimal thickening. Right Internal Carotid Artery: No significant stenosis. Mild plaque formation. Left Common Carotid Artery: No significant stenosis. Mild intimal thickening. Left Internal Carotid Artery: No significant stenosis. Mild plaque formation. External Carotid Arteries: Normal. No stenosis, occlusion, or dissection. Right Vertebral Artery: Well-opacified. Slightly tortuous, no significant stenosis or dissection. Left Vertebral Artery: Opacified. No significant stenosis or dissection. The left vertebral artery is dominant. Venous structures: Well opacified bilaterally. Enlargement of the thyroid gland. Left thyroid nodule is present with NON?VASCULAR FINDINGS: Thyroid: Left thyroid lobe nodule with mild peripheral enhancement is present measuring 0.8 cm. Not seen on the prior CT Lines and Tubes: None. Lungs and Airways: There is an enlarged anterior mediastinal lymph node present, measuring about 1.3 x 2 cm. On the prior CT from 2020 and measures about 0.8 x 1.3 cm. Lung apices are clear. Soft tissues: There is mild thickening of the esophagus may be due to underlying esophagitis. A few bilateral anterior and posterior cervical chain lymph nodes are present, mild reactive adenopathy. Bones: Degenerative changes of the cervical spine are present with disc space narrowing, large osteophyte formation and facet arthropathy throughout the cervical spine. No acute osseous abnormality --- CAROTID STENOSIS 1. No acute intracranial abnormality. No mass or enhancing lesion. No acute hemorrhage. 2. No significant stenosis of the intracranial vessels. No aneurysmal enlargement. 3. No significant stenosis of the neck vessels. 4. Left thyroid lobe nodule, follow-up evaluation with thyroid ultrasound is recommended within 3-6 months. 5. There is an enlarged lymph node in the superior mediastinum, slightly increased in size since the prior CT in 2020, may be postinflammatory. Dedicated chest CT is recommended within 3-6 months. /zoë/ MADELINE DAO LPN License Practical Nurse Signed: 01/27/2024 17:31 Receipt Acknowledged By: 01/29/2024 08:20 /zoë/ ESTEFANY RESTREPO D.O. PHYSICIAN MADELINE DAO [facility] [place] [facility] Dec 17, 2023 12:49 PM LETTERS: LOCAL TITLE: PATIENT LETTER (T) STANDARD TITLE: LETTERS DATE OF NOTE: DEC 17, 2023@12:49 ENTRY DATE: DEC 17, 2023@12:49:45 AUTHOR: ESTEFANY RESTREPO EXP COSIGNER: URGENCY: STATUS: COMPLETED DEPARTMENT OF [facility] Toll Free Number Primary Care Telephone Assistance can be reached at extension [phone] [facility] scheduling can be reached at extension [phone] [facility] scheduling can be reached at ext [phone] ARYAN [address] [facility] [address] [place], [place], [address] [place], stable size of liver cyst- no growth or change, no cause for concern Dr. Restrepo Report: ULTRASOUND ABDOMEN LIMITED Clinical History: Follow-up liver cyst Comparison: Abdominal ultrasound from January 10, 2023 Technique: Abdominal ultrasound was supervised and protocoled DC facility and images have been sent to DC national teleradiology program for interpretation Findings: A total of 30 images were sent for review. Liver: There is a 3 x 1.8 x 2.8 cm cyst within the left hepatic lobe which contains hairline septation. The liver is normal in echogenicity, size and contour. Gallbladder: Within normal limits. Pancreas: See body of the pancreas demonstrates normal echogenicity with the remaining portions obscured by overlying bowel gas. Common hepatic duct: 5 mm. Portal vein: Patent with hepatopedal flow Impression: Stable left hepatic lobe septated cyst. Sincerely, Your Primary Care Team [facility] [address] [id number] [place] [address] [phone] [facility] [address] [place] [address] [place] [address] [phone] [facility] [address] [facility],[address] [place] [phone] [place] [address] ESTEFANY RESTREPO [facility] [place] [facility] Dec 10, 2023 03:16 PM ADDENDUM: LOCAL TITLE: Addendum STANDARD TITLE: ADDENDUM DATE OF NOTE: DEC 10, 2023@15:16:11 ENTRY DATE: DEC 10, 2023@15:16:12 AUTHOR: MADELINE DAO EXP COSIGNER: URGENCY: STATUS: COMPLETED ALERT TO [facility] TO MAKE FOLLOW UP APT WITH PROVIDER, POST ER VISIT, INCIDENTAL FINDINGS ON CT SCAN /zoë/ MADELINE DAO LPN License Practical Nurse Signed: 12/10/2023 15:17 Receipt Acknowledged By: 12/10/2023 15:28 /zoë/ ROB HAQUE [facility] --- Original Document --- 12/10/23 FAX/MAIL RECEIVED: Document Received On: Nov Document Type: Emergency Department Note [facility] EMERGENCY Date of Service: Nov Facility and or Provider: Contact Information: PCP of Record: ESTEFANY RESTREPO Next visit with PCP: 04/15/2024 10:00 CWM/NO/PACT EIGHT 08/25/2024 10:00 CWM/NO/DERMATOLOGY CARGO SURVEYOR AM 11/11/2024 10:00 NHM/OPT/VISUAL IMAGING 11/11/2024 10:30 NHM/OPTOMETRY/VERNON/ Primary Care May keep copies of this document for up to 14 days and send the original for scanning. Complaint Visual Field Change Final diagnoses Thyroid nodule Mediastinal lymphadenopathy Diplopia CT Angio Head and Neck Final Result 1. No acute intracranial abnormality. No mass or enhancing lesion. No acute hemorrhage. 2. No significant stenosis of the intracranial vessels. No aneurysmal enlargement. 3. No significant stenosis of the neck vessels. 4. Left thyroid lobe nodule, follow-up evaluation with thyroid ultrasound is recommended within 3-6 months. 5. There is an enlarged lymph node in the superior mediastinum, slightly increased in size since the prior CT in 2020, may be postinflammatory. Dedicated chest CT is recommended within 3-6 months. History of Present Illness The patient, Aryan Bland,is a 78 y.o. male who presents for evaluation of Visual Field Change This is a 78-year-old male with past medical history significant for diabetes, dysphagia, TOYIN, who presents to the emergency department today complaining of x 3 months of worsening double vision. Patient tells me that he initially noticed it only occasionally, but has been more persistent. He notices the double vision when he is looking at objects at a distance, especially affects him when he is driving. He has not noticed double vision with objects that are closer to him. He does wear glasses, was recently evaluated by his eye doctor x 1 month ago who did not change his prescription or alert him of any abnormality. However, he did not mention the double vision to his eye doctor at that time. He tells me that his double vision resolves when he covers 1 eye. He denies any associated pain, discharge from the eye. He does tell me that he frequently suffers from dry eyes, has been prescribed lubricating drops and lubricating ointment by his eye doctor that he has been using. He denies any other new changes in medications, denies any trauma to the eyes. He denies any loss of vision. He has not had any slurred speech, facial droop, or unilateral weakness. Assessment and Plan: This is a 78-year-old male with past medical history significant for diabetes, dysphagia, GERD, who presents to the emergency department today complaining of x 3 months of worsening double vision. The patient was afebrile with stable and reassuring vital signs. My physical exam as noted above. Patient does report double vision for objects seen at a distance, resolving when covering 1 eye, no double vision with objects up close to. Patient does report blurred vision without his glasses, none blurred vision with his glasses on. No loss of visual field on confrontation testing. Extraocular movements intact, no drainage, discharge, or conjunctival injection. Patient scores O on NIH stroke scale. Laboratory evaluation was reassuring, did not reveal significant abnormality to explain the patient's symptoms today. CT angio head and neck showed 2 incidental findings of thyroid nodule, mediastinal enlarged lymph node. I did discuss these results with the patient, discussed appropriate follow-up imaging. Incidental findings were noted on imaging and added as secondary diagnoses. Patient was notified and given a copy of the report. The patient was advised on the importance of follow up as some of these findings may ultimately be cancerous in nature and lack of follow up could result in the patient's disability or untimely . Patient voiced understanding and expressed intent to follow up. Primary care referral information was provided in the event that the patient does not have a PCP or is unable to obtain an appointment in a timely manner. Regarding the patient's symptoms, I did discuss with neurology, who recommended that we order a myasthenia gravis panel, discharge patient home with plan for outpatient MRI, outpatient follow-up with neurology, and close follow-up with his primary care provider. We did discuss the possibility of having the patient follow-up with ophthalmology, but neurology felt that this was a neurologic issue rather than an eye disorder. I have advised that the patient reach out to his primary care provider first thing tomorrow morning to request an outpatient MRI of the brain with contrast, request outpatient neurology follow-up. [facility] and [facility] will likely have a provider that they will be able to schedule him with. However, I have provided him with the information for our local neurology group should he need it for follow-up. I advised the patient monitor symptoms closely at home, return with any new or worsening symptoms. Patient expressed understanding, is in agreement with this plan. Patient provided with return precautions and discharged home. Dr. Spear was available for consultation during this case. /zoë/ MADELINE DAO LPN License Practical Nurse Signed: 12/10/2023 15:16 MADELINE DAO [facility] [place] [facility] Dec 10, 2023 03:08 PM ADMINISTRATIVE NOTE: LOCAL TITLE: FAX/MAIL RECEIVED STANDARD TITLE: ADMINISTRATIVE NOTE DATE OF NOTE: DEC 10, 2023@15:08 ENTRY DATE: DEC 10, 2023@15:08:38 AUTHOR: MADELINE DAO EXP COSIGNER: URGENCY: STATUS: COMPLETED FAX/MAIL RECEIVED Has ADDENDA Document Received On: Nov Document Type: Emergency Department Note [facility] EMERGENCY Date of Service: Nov Facility and or Provider: Contact Information: PCP of Record: ESTEFANY RESTREPO Next visit with PCP: 04/15/2024 10:00 CWM/NO/PACT EIGHT 08/25/2024 10:00 CWM/NO/DERMATOLOGY CARGO SURVEYOR AM 11/11/2024 10:00 NHM/OPT/VISUAL IMAGING 11/11/2024 10:30 NHM/OPTOMETRY/VERNON/ Primary Care May keep copies of this document for up to 14 days and send the original for scanning. Complaint Visual Field Change Final diagnoses Thyroid nodule Mediastinal lymphadenopathy Diplopia CT Angio Head and Neck Final Result 1. No acute intracranial abnormality. No mass or enhancing lesion. No acute hemorrhage. 2. No significant stenosis of the intracranial vessels. No aneurysmal enlargement. 3. No significant stenosis of the neck vessels. 4. Left thyroid lobe nodule, follow-up evaluation with thyroid ultrasound is recommended within 3-6 months. 5. There is an enlarged lymph node in the superior mediastinum, slightly increased in size since the prior CT in 2020, may be postinflammatory. Dedicated chest CT is recommended within 3-6 months. History of Present Illness The patient, Aryan Bland,is a 78 y.o. male who presents for evaluation of Visual Field Change This is a 78-year-old male with past medical history significant for diabetes, dysphagia, TOYIN, who presents to the emergency department today complaining of x 3 months of worsening double vision. Patient tells me that he initially noticed it only occasionally, but has been more persistent. He notices the double vision when he is looking at objects at a distance, especially affects him when he is driving. He has not noticed double vision with objects that are closer to him. He does wear glasses, was recently evaluated by his eye doctor x 1 month ago who did not change his prescription or alert him of any abnormality. However, he did not mention the double vision to his eye doctor at that time. He tells me that his double vision resolves when he covers 1 eye. He denies any associated pain, discharge from the eye. He does tell me that he frequently suffers from dry eyes, has been prescribed lubricating drops and lubricating ointment by his eye doctor that he has been using. He denies any other new changes in medications, denies any trauma to the eyes. He denies any loss of vision. He has not had any slurred speech, facial droop, or unilateral weakness. Assessment and Plan: This is a 78-year-old male with past medical history significant for diabetes, dysphagia, GERD, who presents to the emergency department today complaining of x 3 months of worsening double vision. The patient was afebrile with stable and reassuring vital signs. My physical exam as noted above. Patient does report double vision for objects seen at a distance, resolving when covering 1 eye, no double vision with objects up close to. Patient does report blurred vision without his glasses, none blurred vision with his glasses on. No loss of visual field on confrontation testing. Extraocular movements intact, no drainage, discharge, or conjunctival injection. Patient scores O on NIH stroke scale. Laboratory evaluation was reassuring, did not reveal significant abnormality to explain the patient's symptoms today. CT angio head and neck showed 2 incidental findings of thyroid nodule, mediastinal enlarged lymph node. I did discuss these results with the patient, discussed appropriate follow-up imaging. Incidental findings were noted on imaging and added as secondary diagnoses. Patient was notified and given a copy of the report. The patient was advised on the importance of follow up as some of these findings may ultimately be cancerous in nature and lack of follow up could result in the patient's disability or untimely . Patient voiced understanding and expressed intent to follow up. Primary care referral information was provided in the event that the patient does not have a PCP or is unable to obtain an appointment in a timely manner. Regarding the patient's symptoms, I did discuss with neurology, who recommended that we order a myasthenia gravis panel, discharge patient home with plan for outpatient MRI, outpatient follow-up with neurology, and close follow-up with his primary care provider. We did discuss the possibility of having the patient follow-up with ophthalmology, but neurology felt that this was a neurologic issue rather than an eye disorder. I have advised that the patient reach out to his primary care provider first thing tomorrow morning to request an outpatient MRI of the brain with contrast, request outpatient neurology follow-up. [facility], and they will likely have a provider that they will be able to schedule him with. However, I have provided him with the information for our local neurology group should he need it for follow-up. I advised the patient monitor symptoms closely at home, return with any new or worsening symptoms. Patient expressed understanding, is in agreement with this plan. Patient provided with return precautions and discharged home. Dr. Spear was available for consultation during this case. /kaitlin DAO LPN License Practical Nurse Signed: 12/10/2023 15:16 12/10/2023 ADDENDUM STATUS: [facility] TO MAKE FOLLOW UP APT WITH PROVIDER, POST ER VISIT, INCIDENTAL FINDINGS ON CT SCAN /es/ MADELINE DAO LPN License Practical Nurse Signed: 12/10/2023 15:17 Receipt Acknowledged By: 12/10/2023 15:28 /kaitlin OATES 12/10/2023 ADDENDUM STATUS: COMPLETED [facility] CALLED ON THE TELEPHONE FOR SCHEDULING BUT THE CALL WAS NOT ANSWERED,A MESSAGE WAS LEFT FOR CALLBACK. /zoë/ ROB OATES Signed: 12/10/2023 15:29 MADELINE DAO DC [facility] [place] [facility] Dec 05, 2023 11:55 AM ADMINISTRATIVE NOTE: LOCAL TITLE: FAX/MAIL RECEIVED STANDARD TITLE: ADMINISTRATIVE NOTE DATE OF NOTE: DEC 05, 2023@11:55 ENTRY DATE: DEC 05, 2023@11:55:59 AUTHOR: MADELINE DAO EXP COSIGNER: URGENCY: STATUS: COMPLETED Document Received On: Nov Document Type: Emergency Department Note Date of Service: Nov Facility and or Provider: [facility] Emergency Contact Information: PCP of Record: ESTEFANY RESTREPO Next visit with PCP: 12/05/2023 15:00 CWM/NO/PCMHI/PSYCHOLOGIST 04/15/2024 10:00 CWM/NO/PACT EIGHT 08/25/2024 10:00 CWM/NO/DERMATOLOGY CARGO SURVEYOR AM 11/11/2024 10:00 NHM/OPT/VISUAL IMAGING 11/11/2024 10:30 NHM/OPTOMETRY/[place]/ Primary Care May keep copies of this document for up to 14 days and send the original for scanning. Complaint Shortness of Breath Final diagnosis: Dyspnea, unspecified type ED Disposition History of Present Illness The patient, Aryan Bland,is a 78 y.o. male who presents for evaluation of Shortness of Breath The patient reports that he has had some mild shortness of breath, difficulty taking a full breath, since couple days ago when he started working in a room with a lot of mold. He has no known history of asthma. Denies chest pain. No leg pain or swelling. Unless otherwise specified, I have reviewed and agree with the triage and nursing notes. XR Chest Final Result Subtle nodular opacity in the right lower lung is favored to reflect a nipple shadow. Confirmation can be obtained with repeat radiographs using nipple markers. EKG: sinus daylin at 56, LAD, no ST/TW abnormalities. MDM MDM The patient is complaining of some nonspecific dyspnea since working in a moldy room over the last few days. His lungs sound clear and his oxygen saturations are good. We do not see any obvious findings on his chest x-ray, I do not suspect a cardiac etiology at this time. He was given an albuterol nebulizer, which she did feel like improved his breathing. I will discharge him with an inhaler and recommend that he wears a ventilator when he enters the moldy area again. Discussed indications for which she should return. /zoë/ MADELINE DAO LPN License Practical Nurse Signed: 12/05/2023 11:59 MADELINE DAO [facility] Nov 11, 2023 02:39 PM ACCOUNTING OF DISCLOSURES NOTE: LOCAL TITLE: STATE PRESCRIPTION DRUG MONITORING PROGRAM STANDARD TITLE: ACCOUNTING OF DISCLOSURES NOTE DATE OF NOTE: NOV 11, 2023@14:39:52 ENTRY DATE: NOV 11, 2023@14:39:52 AUTHOR: ESTEFANY RESTREPO EXP COSIGNER: URGENCY: STATUS: COMPLETED This PDMP query was submitted by Estefany Restrepo. The clinical justification for this PDMP query is to review controlled substances prescribed outside of the [facility], and any additional information that may become available, as an important component of standard clinical care, and in accordance with [facility] policy. Patient information was shared with the PDMP [place]. No prescription(s) for controlled substances outside the [facility] were found in the last 90 days. /kaitlin RESTREPO D.O. PHYSICIAN Signed: 11/11/2023 14:40 [facility]EFANY RESTREPO [facility] Nov 11, 2023 02:20 PM PHYSICIAN NOTE: LOCAL TITLE: MD NOTE STANDARD TITLE: PHYSICIAN NOTE DATE OF NOTE: NOV 11, 2023@14:20 ENTRY DATE: NOV 11, 2023@14:20:54 AUTHOR: ESTEFANY RESTREPO EXP COSIGNER: URGENCY: STATUS: COMPLETED ARYAN BLAND is a 78 year old WHITE MALE who is being seen today in primary care for routine follow up. CARE TEAM Community Primary Care Provider: none [facility]: derm podiatry Community Specialists: urology- Dr. 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 vet states he is unable to get appt w/Dr Church is hoping he [facility], denies pain on urination, no frequency, no urgency, denies n/v/d, no abdominal or flank pain, no hematuria, denies fever, feels that able to empty bladder completely. no foul odor, urine appearance is clear yellow. using approx 3 pads per day. groin slightly irritated due to exposure to moisture is requesting rx for barrier/moisture cream. did see urology- they prescribed oxybutynin brought in package for inconinece briefs- called FERNANDO Absorbent Guard insomnia- has used lorazepam for sleep- doens;t want to use regularly. prev used trazodone, mrtazepine, gabapentin- all with bad side effects. RELEVANT PAST MEDICAL HISTORY Active problems - Computerized Problem List is the source for the followin. Liver cyst due for rpt US 12/2023 left hepatic lobe incompletely septated 2.7 cm complex cyst 2. Exposure to potentially hazardous substance 3. Left inguinal hernia 4. Spinal stenosis in cervical region 5. Thyroid nodule 3.6 mm left thyroid gland nodule. CT REPORT DATED 02/10/21 6. Elevated PSA 7. Esophageal stricture s/p balloon dilatation in March 2017 8. Posttraumatic stress disorder (SNOMED CT 93539449) 9. Meralgia paresthetica ON NERVE CONDUCTION STUDY AT [facility] 10. Juliana 11. Type 2 diabetes mellitus (SNOMED CT 66868382) 12. Shared care - financial analysis consultant and GP Dr Simental--pcp GI- Jae Bernard[facility] 13. History of colonoscopy [address] [place] Mar 2017---recommmended in 3 yrs (Mar 2020) Adenomatous polyp 14. Diverticulosis 15. Family History of Malignant Neoplasm of Gastrointestinal Tract 16. Hyperlipidemia (SNOMED CT 72584099) 17. Hearing Loss PAST SURGICAL HISTORY turp on prostate 2023 left ingunal hernia repair FAMILY HISTORY Mother: at 71- PROFESSOR OF BUSINESS ADMINISTRATION cancer Father: at 72, prostate ca Siblings: 1 sister- HTN SOCIAL HISTORY Background: born and raised in [place], [place]. 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 Active and Recently Outpatient Medications (excluding Supplies): Active Outpatient Medications Status 1) ATORVASTATIN CALCIUM 20MG TAB TAKE ONE-HALF TABLET BY ACTIVE MOUTH ONCE DAILY FOR HIGH CHOLESTEROL 2) CARBOXYMETHYLCELLULOSE UD 0.5%(PF)OP RAZA INSTILL 1 ACTIVE DROP INTO EACH EYE EVERY 2 HOURS WHILE AWAKE 3) DOCUSATE NA 50MG/SENNOSIDES 8.6MG TAB TAKE 2 TABLETS ACTIVE BY MOUTH ONCE DAILY FOR CONSTIPATION REVIEW OF SYMPTOMS POSITIVE FOR: NEGATIVE FOR: CONSTITUTION: no weight loss/gain, fatigue, fevers, night sweats HEENT: no vision problems, hearing loss,swallowing difficulties, sinus pain CV: no chest pain, palpitations, dyspnea on exertion, orthopnea RESP: no cough, shortness of breath, wheezing GI: no abdominal pain, N/V/D, constipation, blood in stool, normal appetite : no urinary frequency, nocturia, hematuria MUSC: no joint pain, joint swelling, muscle aches NEURO: no headaches, dizziness, memory loss, tremor, weakness PSYCH: no depression, anxiety, suicidal or homicidal thoughts SKIN: no rash, new skin lesions PHYSICAL EXAM Vitals: - - - - - - - B/P: 151/70 (10/15/2023 09:00)- repeat 138/76 pulse: 78 (10/15/2023 09:00) resp: 16 (10/15/2023 09:00) temp: 97.5 F [36.4 C] (10/15/2023 09:00) Ht: 69 in [175.3 cm] (10/15/2023 09:00) Wgt: 161.7 lb [73.35 kg] (10/15/2023 09:00) BMI: BMI: 23.9 Exam: - - - - - - - General: A&O x 3, no acute distress, normal affect and mood Neck: normal thyroid, normal carotids- no bruits CV: RRR S1S2, no murmur Resp: LCTA bilat, no wheezing, rales or rhonchi Neuro: grossly intact, no visible tremor, normal memory and speech Extremities: normal movement of extremities, normal gait, normal strength no LE edema RECENT LABS BMP (FASTING) Collection DT Specimen Test Name Result Units Ref Range 09/30/2023 08:32 SERUM UREA NITROGEN 16 mg/dL 7 - 25 09/30/2023 08:32 SERUM GLUCOSE 107 H mg/dL 65 - 100 09/30/2023 08:32 SERUM SODIUM 140 mmol/L 135 - 145 09/30/2023 08:32 SERUM POTASSIUM 4.6 mmol/L 3.5 - 5.0 09/30/2023 08:32 SERUM CHLORIDE 106 mmol/L 100 - 110 09/30/2023 08:32 SERUM CO2 26 mEq/L 20 - 30 09/30/2023 08:32 SERUM CREATININE, Serum 0.83 mg/dL 0.50 - 1.40 04/27/2021 08:26 SERUM eGFR (IDMS) >60 Ref: >=60 LIVER PANEL TREND Collection DT Spec AST ALT T BILI ALK SAMMY T. PROT ALBUMIN 09/30/2023 08:32 SERUM 39 H 14 1.4 H 82 6.7 4.3 04/02/2023 08:20 SERUM 33 10 1.0 90 6.7 4.2 11/21/2022 08:27 SERUM 38 H 15 1.5 H 89 6.9 4.4 04/25/2022 10:17 SERUM 38 H 18 1.5 H 87 6.8 4.3 11/27/2021 08:37 SERUM 38 H 19 2.0 H 80 6.9 4.4 LIPID PANEL TREND Collection DT Spec CHOL HDL CHO/HDL LDL-c TRIG 09/30/2023 08:32 SERUM 183 65 H 2.8 107 57 04/02/2023 08:20 SERUM 202 H 62 H 3.3 127 63 11/21/2022 08:27 SERUM 185 67 H 2.8 106 58 11/27/2021 08:37 SERUM 214 H 71 H 3.0 131 H 61 04/27/2021 08:26 SERUM 158 67 H 2.4 79 62 CBC TREND Collection DT Spec WBC RBC HGB HCT MCV MCH PLT 09/30/2023 08:32 BLOOD 5.32 5.36 16.0 48.5 90.5 29.9 218 04/02/2023 08:20 BLOOD 5.19 5.12 15.1 46.1 90.0 29.5 252 11/21/2022 08:27 BLOOD 5.79 5.24 15.8 48.1 91.8 30.2 197 04/25/2022 10:17 BLOOD 6.23 5.42 16.2 49.3 91.0 29.9 193 02/08/2022 08:08 BLOOD 5.05 4.99 15.1 45.4 91.0 30.3 164 PSA TREND Collection DT Spec PSA SR- 09/30/2023 08:32 SERUM 2.77 04/02/2023 08:20 SERUM 3.55 11/21/2022 08:27 SERUM 3.47 04/25/2022 10:17 SERUM 3.77 11/27/2021 08:37 SERUM 5.33 H HEMOGLOBIN A1C TREND Collection DT Spec HGBA1c 09/30/2023 08:32 BLOOD 5.5 04/02/2023 08:20 BLOOD 5.9 H 11/21/2022 08:27 BLOOD 5.7 H 11/27/2021 08:37 BLOOD 5.9 H 04/27/2021 08:26 BLOOD 5.9 H ASSESSMENT AND PLAN 1. insomnia- difficulty falling asleep. previously tired gabapentin, trazodone, mirtazepine- with bad reactions to all. has taken lorazepam which has been helpful. discussed underlying anxoey may be the culprit- though not willing to take other SSRIs which game his side effects- will try zolpidem 2. incontinence- has seen urology- recommended oxybutynin. wears briefs- states the wrong ones are mailed- brought in correct packaging. re-ordered today HEALTH MAINTENANCE Colonoscopy (due at age 47) - Abdominal Aortic Aneurysm Screening (due at age 65 if smoker/prev smoker) - Prostate screening - Tetanus: due every 10 years Pneumonia Vacccine: Flu Vaccine: due yearly Covid Vaccine: due yearly FOLLOW UP f/u in 6 mo- already has apt VISIT TYPE:a MODERATE complexity visit where 30 minutes was spent in direct patient care, review of records and documentation. /zoë/ ESTEFANY RESTREPO D.O. PHYSICIAN Signed: 11/11/2023 16:23 ESTEFANY RESTREPO [facility] Nov 11, 2023 02:10 PM PREVENTIVE MEDICINE NURSING NOTE: LOCAL TITLE: CLINICAL REMINDERS/NURSING STANDARD TITLE: PREVENTIVE MEDICINE NURSING NOTE DATE OF NOTE: NOV 11, 2023@14:10 ENTRY DATE: NOV 11, 2023@14:10:32 AUTHOR: NAVEED GARCIA EXP COSIGNER: URGENCY: STATUS: COMPLETED Influenza Immunization: The patient has received the seasonal influenza vaccine for the current season at another location. Documented: INFLUENZA, UNSPECIFIED FORMULATION Historical Date Administered: Oct 14, 2023 Series: Booster Outside Location: Outside Healthcare Provider Information Source: FROM OTHER PROVIDER /zoë/ NAVEED GARCIA LPN Signed: 11/11/2023 14:11 POONAM GARCIA [facility]
--- OUTSIDE RECORDS SUMMARY | 2023-12-05 11:00 | XMS_ITS ---
Author Name [facility] [place] [facility] [place] Address [address] [place] [address] Care Team Providers Care Copyright Manager Name Role Phone ESTEFANY OVERTON Primary Care [...] Name Patient's Relationship to Policy Flores GHISLAINE [facility] PREFERRED PROVIDER ORGANIZAT ION (PPO) BASIC FAMIL Y Feb 23, 2001 [id number] [phone] Priya BLAND SPOUSE ANTHEM BCBS [facility] PREFERRED PROVIDER ORGANIZAT ION (PPO) FEP BASIC FAMIL Y Feb 23, 2001 112 [id number] [phone] EDWINA SPOUSE ANTHEM FEP PREFERRED PROVIDER ORGANIZAT ION (PPO) FEP BASIC FAMIL Y Feb 23, 2001 [id number] [phone] Priya [place] F[place] PREFERRED PROVIDER ORGANIZAT ION (PPO) BASIC FAMIL Y Feb 23, 2001 [id number] Priya BLAND SPOUSE [place] FEDERAL PREFERRED PROVIDER ORGANIZAT ION (PPO) BASIC FAMIL Y Feb 23, 2001 112 [id number] [phone] EDWINAPriya SANTOS SPOUSE [place] FEP ([id number]) PRESCRIPT ION FEP RX Feb 23, 2001 [id number] [phone] Priya BLAND SPOUSE [place] FEP BCBS PRESCRIPT ION CAREM ARK FEPRX Feb 11, 2010 [id number] [phone] Priya BLAND SPOUSE [place]-F EP BCBS PRESCRIPT ION BCBS FEP PLAN Feb 11, 2010 [id number] [phone] Priya BLAND SPOUSE MEDICARE (WN) MEDICARE () PART B Feb 11, 2015 PART B [id number] [facility] [place],F RANK PATIENT MEDICARE (WN) MEDICARE () PART B Feb 11, 2015 PART B [id number] [facility] [phone] [place],F RANK PATIENT MEDICARE (WNR) MEDICARE () PART B Feb 11, 2015 PART B [id number] [facility] [place],F RANK PATIENT MEDICARE (WN) MEDICARE () PART B Feb 11, 2015 PART B [id number] [facility] [place],F RANK PATIENT MEDICARE (WNR) MEDICARE () PART B Feb 11, 2015 PART B [id number] [facility] [phone] [place],F RANK PATIENT MEDICARE (WNR) MEDICARE () PART A Apr 11, 2012 PART A [id number] [facility] [place],F RANK PATIENT MEDICARE (WNR) MEDICARE () PART A Apr 11, 2012 PART A [id number] [facility] [place],F RANK PATIENT MEDICARE (WNR) MEDICARE () PART A Apr 11, 2012 PART A [id number] [facility] [place],F RANK PATIENT MEDICARE (WNR) MEDICARE () PART A Apr 11, 2012 PART A [id number] [facility] Sae BLAND RANK PATIENT MEDICARE (WNR) MEDICARE (M) PART A Apr 11, 2012 PART A [id number] [facility] Sae BLAND PATIENT Selected Encounter This section includes the information on record at [place] for the Encounter. Date/Time Encounter Type Encounter Description Reason Provider Source Dec 05, 2023 03:00 PM PSYTX W PT 30 MINUTES PCMHI INDIV ICD-10-CM Z63.0 Problems in relationship with spouse or partner DEANDRE HUTCHINSON IHE Encounter Template Text not used by [place] Assessments - Encounter Diagnoses This section includes the primary and secondary diagnoses documented for the Encounter. Date/Time Primary/Secondary Diagnosis Diagnosis Name Provider Source Dec 09, 2023 03:51 PM PRIMARY Problems in relationship with spouse or partner DEANDRE HUTCHINSON [place] [facility] [place] [facility] Dec 09, 2023 03:51 PM SECONDARY Depression, unspecified DEANDRE HUTCHINSON [place] [facility] [place] [facility] Dec 09, 2023 03:51 PM SECONDARY Post-traumatic stress disorder, unspecified DEANDRE HUTCHINSON [place] [facility] [place] [facility] Dec 09, 2023 03:51 PM SECONDARY Unspecified urinary incontinence DEANDRE HUTCHINSON [place] [facility] [place] [facility] Plan of Treatment: Future Appointments (+ 6 months) and Future Tests (+/- 45 days) The Plan of Treatment section includes future care activities for the patient from all [place] treatmentfacilities. This section includes future appointments and future orders which are active, pending or scheduled. Future Appointments This section includes appointments that were scheduled to occur 6 months from the date of the Encounter, up to a maximum of 20 appointments. The data comes from all [place] treatment facilities. Appointment Date/Time Appointment Type Appointme nt Facility Name Dec 11, 2023 11:30 AM [place] [facility] [place] [facility] Dec 17, 2023 09:00 AM AMBUL[place]ORY - NONE [place] [facility] [place] [facility] Dec 20, 2023 10:30 AM AM[place]ORY - NONE [place] [facility] [place] [facility] Jan 01, 2024 02:30 PM [facility] [place]IN [place] [facility] [place] [facility] Jan 22, 2024 09:00 AM [facility] [place] [facility] [place] [facility] Feb 19, 2024 10:40 AM [facility] [place]INE [facility] [place] [facility] Mar 11, 2024 01:40 PM [facility]ORY [place]ICINE [facility] [place] [facility] Mar 25, 2024 11:00 AM [facility] [place] [facility] [place] [facility] Apr 15, 2024 10:00 AM AM[facility]ORY [place]ICINE [facility] [place] [facility] May 26, 2024 08:00 AM AM[facility]ORY [place]ICINE [facility] [place] [facility] May 27, 2024 02:00 PM AM[facility]ORY [place]ICINE [facility] [place] [facility] May 27, 2024 02:15 PM [facility] [place]INE [facility] [place] [facility] May 27, 2024 02:30 PM [place] [facility] [place] [facility] Social History: Smoking Status (Most current) and Tobacco Use (All prior to encounter date) This section includes the most current, and the historical, smoking and tobacco- related health factors from the [place] facility where the Encounter took place. Current Smoking Status This section includes the most current smoking, or tobacco-related health factor, from the [place] facility where the Encounter took place. Date/Time Current Smoking Status Comment [facility] Dec 18, 2022 10:00 AM VA-TOBACCO FORMER USER [place] [facility] [place] [facility] Tobacco Use History This section includes a history of the smoking, or tobacco-related health factors, that were collected on or before the date of the Encounter. The data comes from the [place] facility where the Encounter took place. Date/Time Smoking Status/Tobac co Use Comment Facility Dec 18, 2022 10:00 AM VA-TOBACCO QUIT 15 YRS OR MORE [facility] [place] [facility] Dec 06, 2021 09:30 AM VA-TOBACCO FORMER USER [facility] [place] [facility] Dec 06, 2021 09:30 AM VA-TOBACCO QUIT 15 YRS OR MORE [facility] [place] [facility] Nov 03, 2020 03:30 PM VA-TOBACCO FORMER USER [facility] [place] [facility] Nov 03, 2020 03:30 PM VA-TOBACCO QUIT 15 YRS OR MORE [place] [facility] [place] [facility] Dec 04, 2019 10:30 AM VA-TOBACCO FORMER USER [facility] [place] [facility] Dec 04, 2019 10:30 AM VA-TOBACCO QUIT 15 YRS OR MORE [place] [facility] [place] [facility] May 30, 2018 09:32 AM VA-TOBACCO FORMER USER [place] [facility] [place] [facility] May 30, 2018 09:32 AM VA-TOBACCO QUIT 15 YRS OR MORE [place] [facility] [place] [facility] Nov 29, 2017 09:01 AM VA-TOBACCO FORMER USER [place] [facility] [place] [facility] Nov 29, 2017 09:01 AM VA-TOBACCO QUIT 15 YRS OR MORE [place] [facility] [place] [facility] Dec 13, 2016 08:30 AM LIFETIME NON-TOBACCO USER [place] [facility] [place] [facility] Jul 13, 2015 09:13 PM QUIT TOBACCO USE > 7 YEARS AGO . [place] [facility] [place] [facility] Feb 15, 2009 09:19 AM QUIT TOBACCO USE > 7 YEARS AGO quit when he left service in 1968. [facility] Radiology Reports: +/- 30 days of [...] the Encounter. The data comes from all [place] treatment facilities. Date/Time Radiology Report Provider Source Dec 17, 2023 08:56 AM ULTRASOUND ABDOMEN LIMITED: EWAJAZZYSRAVANTHI KAN [id number] -[id number] M Ex Date: DEC 17, 2023@08:56 Req Phys: ESTEFANY OVERTON Loc: CWM/NO/PACT EIGHT (Req'g Loc) Img Loc: ULTRASOUND Service: [facility] [place] [facility] [place] [address] (Case [id number] COMPLETE) ULTRASOUND ABDOMEN LIMITED (US Detailed) CPT:60668 Reason for Study: f/u liver cyst Clinical History: Report Status: Verified Date Reported: DEC 17, 2023 Date Verified: DEC 17, 2023 Plastic Shaper E-Sig: Report: ULTRASOUND ABDOMEN LIMITED Clinical History: Follow-up liver cyst Comparison: Abdominal ultrasound from January 10, 2023 Technique: Abdominal ultrasound was supervised and protocoled [place] facility and images have been sent to [place] national teleradiology program for interpretation Findings: A [...] Impression: Stable left hepatic lobe septated cyst. READING PHYSICIAN: Rona [id number] 12/17/2023 10:28 [facility] National Teleradiology Program [phone] (For Medical Practitioner Use Only) Attention Patients / Veterans: If you have questions or concerns about these test results, please contact your ordering provider or primary care team. Primary Diagnostic Code: NO ALERT REQUIRED Primary Interpreting Staff: RADIOLOGY,OUTSIDE SERVICE, Staff Physician / RADIOLOGY,OUTSIDE SERVICE [facility] Nov 08, 2023 02:20 PM ULTRASOUND NECK (THYROID,HEAD,SOFT TISSUE): SRAVANTHI BLAND [id number] M Ex Date: NOV 08, 2023@14:20 Req Phys: ESTEFANY OVERTON Loc: CWM/NO/PACT EIGHT (Req'g Loc) Img Loc: ULTRASOUND Service: Unknown [facility] [address] (Case [id number] COMPLETE) ULTRASOUND NECK (THYROID,HEAD,SOF(US Detailed) CPT:21532 Reason for Study: thyroid nodule follow up Clinical History: f/u prev ultrasound Report Status: Verified Date Reported: NOV 08, 2023 Date Verified: NOV 08, 2023 Plastic Shaper E-Sig:/ES/ELSY STILES JR Report: Study: Thyroid ultrasound. [...] (TI-RADS): White Paper of the TI-RADS Committee. Haim et al., Journal of the [place] [employer] 2017;14:587-595. Primary Diagnostic Code: No immediate attention required Primary Interpreting Staff: ELSY STILES JR, Radiologist (Plastic Shaper) /EAELSY HAMMER JR [facility] Encounter Notes: All associated encounter notes This section contains the clinical notes associated to the Encounter. Date/Time Encounter Note(s) Provider Source Dec 05, 2023 08:40 AM [facility]: LOCAL TITLE: PRIMARY MENTAL HEALTH OUTPATIENT FOLLOW UP NOTE STANDARD TITLE: MENTAL HEALTH OUTPATIENT NOTE DATE OF NOTE: DEC 05, 2023@08:40 ENTRY DATE: DEC 05, 2023@08:40:59 AUTHOR: STACY HUTCHINSON COSIGNER: URGENCY: STATUS: COMPLETED PC-MHI OUTPATIENT F/U NOTE DURATION: 30 mins Mr. Bland is a 78 years old , white male [place] era [place] with a PMH of PTSD (SC),DM II, hearing loss, spinal stenosis and chronic pain, and depression. 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 Results on measures were reviewed. [place] explored how sleep, mood and communication with partner have improved since last session. [place] explored how his seems more understanding of his challenges. In addition, he explored how psychotropic medication for sleep has been helpful and he is taking it as prescribed once every few days. He explored that he understands the medication comes with caution. He also explored how attending shinto more with his , and accepting that changes may stay but he also has not tried all treatment options available. He has upcoming medical appointments with specialists to explore treatment intervention options for incontinence/sx post prostate surgery. He said that he continues to experience symptoms of loss associated with this change, but said that he knows the prostate surgery was a necessity. Options of topics to explore for today were reviewed and he chose sleep hygiene. Sleep hygiene tips were briefly reviewed using a handout to confirm that is utilizing all behavioral strategies available to him. He denied SI/HI. He naps after dinner, and explored benefit of discontinuing evening naps to assist with sleep at night and will continue with set schedule for sleep. Results on measures were reviewed. Moreover, he said that aging comes with depression at times and he talks to other [place] era Veterans about this. He expressed curiosity and possible interest in group therapy. Tara reviewed some group therapy options and he said that he will think about them. Moreover, he said that he would call back to schedule next [facility] appt. He denied SI/HI. SCREENERS: PHQ-9: 8, mild depression, somewhat difficult OBED-7: 11, moderate anxiety, somewhat difficult DIAGNOSES: Problems in Relationship with Spouse; PTSD (SC); Depressive Disorder, Unspecified; Incontinence IMPRESSIONS/PLAN: Mr. Bland met telegraphic typewriter installer for one session of [facility] treatment 2018 previous to this treatment episode. continues to experience PTSD, sleep challenges and depression, but in addition, is now experiencing marital strain and difficulty with recovery from prostate surgery (incontinence). He denied SI/HI. In collaboration with considering evidence-based treatment, clinical judgment and patient preference, options of treatment were offered. agreed to return to [facility] for brief CBT including sleep hygiene, cognitive restructuring as well as assertiveness skills to assist communication with partner and grief support around changes to health and functioning. shared that he would call telegraphic typewriter installer back to reschedule appt after upcoming medical appts. /zoë/ STACY HUTCHINSON, PhD STAFF PSYCHOLOGIST Signed: 12/09/2023 15:57 STACY HUTCHINSON [place] [facility]
--- OUTSIDE RECORDS SUMMARY | 2023-12-11 07:30 | XMS_ITS ---
Author Name [facility] [place] [facility] [place] Address [address] [place] [address] Care Team Providers Care Pattern Grader Cutter Name Role Phone ESTEFANY OVERTON Primary Care Provider Unavailabl e Insurance Providers: [...] Name Patient's Relationship to Policy Flores [facility] PREFERRED PROVIDER ORGANIZAT ION (PPO) BASIC FAMIL Y Feb 23, 2001 [id number] [phone] Priya BLAND SPOUSE ANTHEM BCBS FEP PREFERRED PROVIDER ORGANIZAT ION (PPO) FEP BASIC FAMIL Y Feb 23, 2001 [id number] EDWINA SPOUSE [facility] FEP PREFERRED PROVIDER ORGANIZAT ION (PPO) FEP BASIC FAMIL Y Feb 23, 2001 [id number] [phone] Priya BLAND SPOUSE [place] FEP PREFERRED PROVIDER ORGANIZAT ION (PPO) BASIC FAMIL Y Feb 23, 2001 [id number] Priya BLAND SPOUSE [place] FED[place]AL PREFERRED PROVIDER ORGANIZAT ION (PPO) BASIC FAMIL Y Feb 23, 2001 [id number] [phone] Priya BLAND SPOUSE [place] FEP ([id number]) PRESCRIPT ION FEP RX Feb 23, 2001 [id number] [phone] Priya BLAND SPOUSE [place] FEP BCBS PRESCRIPT ION CAREM ARK FEPRX Feb 11, 2010 [id number] Priya BLAND SPOUSE [place]-F EP BCBS PRESCRIPT ION BCBS FEP PLAN Feb 11, 2010 [id number] Priya BLAND SPOUSE MEDICARE (WNR) MEDICARE () PART B Feb 11, 2015 PART B [id number] [facility] [place],F RANK PATIENT MEDICARE (WN) MEDICARE () PART B Feb 11, 2015 PART B [id number] [facility] [place],F RANK PATIENT MEDICARE (WNR) MEDICARE () PART B Feb 11, 2015 PART B [id number] [facility] [phone] [place],F RANK PATIENT MEDICARE (WNR) MEDICARE () PART B Feb 11, 2015 PART B [id number] [facility] [place],F RANK PATIENT MEDICARE (WNR) MEDICARE () PART B Feb 11, 2015 PART B [id number] [id number] [place],F RANK PATIENT MEDICARE (WNR) MEDICARE () PART A Apr 11, 2012 PART A [id number] [facility] [place],F RANK PATIENT MEDICARE (WNR) MEDICARE () PART A Apr 11, 2012 PART A [id number] [facility] [place],F RANK PATIENT MEDICARE (WNR) MEDICARE () PART A Apr 11, 2012 PART A [id number] [facility] [place],F RANK PATIENT MEDICARE (WNR) MEDICARE () PART A Apr 11, 2012 PART A [id number] [facility] Sae BLAND PATIENT MEDICARE (WNR) MEDICARE (M) PART A Apr 11, 2012 PART A [id number] [facility] Sae BLAND PATIENT Selected Encounter This section includes the information on record at [place] for the Encounter. Date/Time Encounter Type Encounter Description Reason Provider Source Dec 11, 2023 11:30 AM OFFICE O/P EST MOD 30 MIN PRIMARY CARE/MEDICINE ICD-10-CM 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 FURCOROWDYESTEFANY E Encounter Template Text not used by [place] Assessments - Encounter Diagnoses This section includes the primary and secondary diagnoses documented for the Encounter. Date/Time Primary/Secondary Diagnosis Diagnosis Name Provider Source Dec 24, 2023 02:54 PM PRIMARY Cystic disease of liver FURCOLO,ESTEFANY [facility] [place] [facility] Dec 24, 2023 02:54 PM SECONDARY Diplopia FURCOLO,ESTEFANY [facility] [place] [facility] Dec 24, 2023 02:54 PM SECONDARY Elevated prostate specific antigen [PSA] FURCOLO,ESTEFANY [facility] [place] [facility] Dec 24, 2023 02:54 PM SECONDARY Nontoxic single thyroid nodule FURCOLO,ESTEFANY [facility] [place] [facility] Dec 24, 2023 02:54 PM SECONDARY Type 2 diabetes mellitus without complications FURCOLO,ESTEFANY [facility] [place] [facility] Plan of Treatment: Future Appointments (+ 6 months) and Future Tests (+/- 45 days) The Plan of Treatment section includes future care activities for the patient from all [place] treatmentfacilities. This section includes future appointments and future orders which are active, pending or scheduled. Future Appointments This section includes appointments that were scheduled to occur 6 months from the date of the Encounter, up to a maximum of 20 appointments. The data comes from all [place] treatment facilities. Appointment Date/Time Appointment Type Appointme nt Facility Name Dec 17, 2023 09:00 AM AMBULATORY - NONE [facility] [place] [facility] Dec 20, 2023 10:30 AM AMBULATORY - NONE [facility] [place] [facility] Jan 01, 2024 02:30 PM AMBULATORY - REHAB MEDICIN E [facility] [place] [facility] Jan 22, 2024 09:00 AM AM[place]ULATORY - [place]ICINE [place] [facility] [place] [facility] Feb 19, 2024 10:40 AM AM[place]ATORY - [place]ICINE [place] [facility] [place] [facility] Mar 11, 2024 01:40 PM AM[place]ORY [place] [facility] [place] [facility] Mar 25, 2024 11:00 AM AM[place]ORY - [place] [facility] [place] [facility] Apr 15, 2024 10:00 AM AM[place]ORY - [place] [facility] [place] [facility] May 26, 2024 08:00 AM AM[place]ORY [place] [facility] [place] [facility] May 27, 2024 02:00 PM AM[place]ORY [place]INE [place] [facility] [place] [facility] May 27, 2024 02:15 PM AM[place]ORY [place] [facility] [place] [facility] May 27, 2024 02:30 PM AM[place]ORY - [place]ICINE [place] [facility] [place] [facility] Vital Signs: All taken on the encounter date This section contains inpatient and outpatient Vital Signs collected on the date of the Encounter. Date/Time Temperature Pulse Blood Pressure Respiratory Rate SP02 Pain Height Weight Body Mass Index Source Dec 11, 2023 11:34 AM 97.8 65 136/76 16 98 0 160 24 [facility] [facility] Social History: Smoking Status (Most current) and Tobacco Use (All prior to encounter date) This section includes the most current, and the historical, smoking and tobacco- related health factors from the [place] facility where the Encounter took place. Current Smoking Status This section includes the most current smoking, or tobacco-related health factor, from the [place] facility where the Encounter took place. Date/Time Current Smoking Status Comment [facility] it Dec 11, 2023 11:30 AM [place]-TOBACCO QUIT 15 YRS OR MORE [facility] Tobacco Use History This section includes a history of the smoking, or tobacco-related health factors, that were collected on or before the date of the Encounter. The data comes from the [place] facility where the Encounter took place. Date/Time Smoking Status/Tobac co Use Comment Facility Dec 11, 2023 11:30 AM [place]-TOBACCO QUIT 15 YRS OR MORE [facility] [place] [facility] Dec 18, 2022 10:00 AM VA-TOBACCO FORMER USER [facility] [place] [facility] Dec 18, 2022 10:00 AM VA-TOBACCO QUIT 15 YRS OR MORE [facility] [place] [facility] Dec 06, 2021 09:30 AM VA-TOBACCO FORMER USER [facility] [place] [facility] Dec 06, 2021 09:30 AM VA-TOBACCO QUIT 15 YRS OR MORE [facility] [place] [facility] Nov 03, 2020 03:30 PM VA-TOBACCO FORMER USER [facility] [place] [facility] Nov 03, 2020 03:30 PM VA-TOBACCO QUIT 15 YRS OR MORE [facility] [place] [facility] Dec 04, 2019 10:30 AM VA-TOBACCO FORMER USER [facility] [place] [facility] Dec 04, 2019 10:30 AM VA-TOBACCO QUIT 15 YRS OR MORE [facility] [place] [facility] May 30, 2018 09:32 AM VA-TOBACCO FORMER USER [facility] [place] [facility] May 30, 2018 09:32 AM VA-TOBACCO QUIT 15 YRS OR MORE [facility] [place] [facility] Nov 29, 2017 09:01 AM VA-TOBACCO FORMER USER [facility] [place] [facility] Nov 29, 2017 09:01 AM VA-TOBACCO QUIT 15 YRS OR MORE [facility] [place] [facility] Dec 13, 2016 08:30 AM LIFETIME NON-TOBACCO USER [facility] [place] [facility] Jul 13, 2015 09:13 PM QUIT TOBACCO USE > 7 YEARS AGO . [facility] [place] [facility] Feb 15, 2009 09:19 AM QUIT TOBACCO USE > 7 YEARS AGO quit when he left service in 1968. [place] [facility] [place] [facility] Radiology Reports: +/- 30 days of [...] the Encounter. The data comes from all [place] treatment facilities. Date/Time Radiology Report Provider Source Dec 17, 2023 08:56 AM ULTRASOUND ABDOMEN LIMITED: SRAVANTHI BLAND [id number] -[id number] M Exm Date: DEC 17, 2023@08:56 Req Phys: ESTEFANY OVERTON Pat Loc: CWM/NO/PACT EIGHT (Req'g Loc) Img Loc: ULTRASOUND Service: [place] [address] (Case [id number] COMPLETE) ULTRASOUND ABDOMEN LIMITED (US Detailed) CPT:37523 Reason for Study: f/u liver cyst Clinical History: Report Status: Verified Date Reported: DEC 17, 2023 Date Verified: DEC 17, 2023 Chemical Cell Changer E-Sig: Report: ULTRASOUND ABDOMEN LIMITED Clinical History: Follow-up liver cyst Comparison: Abdominal ultrasound from January 10, 2023 Technique: Abdominal ultrasound was supervised and protocoled [place] facility and images have been sent to [place] national teleradiology program for interpretation Findings: A [...] hepatic lobe septated cyst. READING PHYSICIAN: Rona [id number] 12/17/2023 10:28 [facility] National Teleradiology Program [phone] (For Medical Practitioner Use Only) Attention Patients / Veterans: If you have questions or concerns about these test results, please contact your ordering provider or primary care team. Primary Diagnostic Code: NO ALERT REQUIRED Primary Interpreting Staff: RADIOLOGY,OUTSIDE SERVICE, Staff Physician / RADIOLOGY,OUTSIDE SERVICE [facility] Encounter Notes: All associated encounter notes This section contains the clinical notes associated to the Encounter. Date/Time Encounter Note(s) Provider Source Dec 11, 2023 11:41 AM PREVENTIVE MEDICINE NURSING NOTE: LOCAL TITLE: CLINICAL REMINDERS/NURSING STANDARD TITLE: PREVENTIVE MEDICINE NURSING NOTE DATE OF NOTE: DEC 11, 2023@11:41 ENTRY DATE: DEC 11, 2023@11:41:26 AUTHOR: MADELINE DAO EXP COSIGNER: URGENCY: STATUS: COMPLETED Tobacco Use Screening: The patient is a former tobacco user. The patient quit fifteen or more years ago. Alcohol Use Screen (AUDIT-C): Alcohol Screen: SCREEN FOR ALCOHOL (AUDIT-C) An alcohol screening test (AUDIT-C) was negative (score=2). 1. How often did you have a drink containing alcohol in the past year? Consider a drink to be a 12 ounce can or bottle of regular beer, 8 ounces of malt liquor, a 5 ounce glass of table wine, or a 1.5 ounce shot of liquor (like scotch, gin, or vodka). Two to four times a month 2. How many drinks containing alcohol did you have on a typical day when you were drinking in the past year? One or two drinks 3. How often did you have six or more drinks on one occasion in the past year? Never /es/ MADELINE DAO LPN License Practical Nurse Signed: 12/11/2023 11:42 MADELINE DAO [facility] [facility] [place] [facility] Dec 11, 2023 11:39 AM PHYSICIAN NOTE: LOCAL TITLE: MD NOTE STANDARD TITLE: PHYSICIAN NOTE DATE OF NOTE: DEC 11, 2023@11:39 ENTRY DATE: DEC 11, 2023@11:39:53 AUTHOR: ESTEFANY OVERTON EXP COSIGNER: URGENCY: STATUS: COMPLETED SRAVANTHI BLAND Jeovanny is a 78 year old WHITE MALE who is being seen today in primary care for ER f/u for double vsision for a few months. incidental finding CT scan brain. was told he might need MRI brain- but he woudl rather work with optometry as he feels it is related to his new glasses CARE TEAM Community Primary Care Provider: none [facility] derm podiatry [facility] Specialists: urology- Dr. Namna GUZMAN- Dr. Dao ENT- Dr. 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 double vision/blurry vision- for a few weeks, started when he began to wear [facility] needs f/u for an incidental finding on his thyroid. now has his OLD glasses on and he does NOT have double vision CT Angio Head and Neck Final Result [...] chest CT is recommended within 3-6 months. still needing to get the correct liner/guard to place within his briefs- the one he has/uses is the best- has bought out of pocket- feels the [facility] is not supplying him with the correct one RELEVANT PAST MEDICAL HISTORY Active problems - Computerized Problem List is the source for the followin. Liver cyst due for rpt US 12/2023 left hepatic lobe incompletely septated 2.7 cm complex cyst 2. Exposure to potentially hazardous substance 3. Left inguinal hernia 4. Spinal stenosis in cervical region 5. Thyroid nodule left thyroid nodule, stable over years 6. Elevated PSA 7. Esophageal stricture s/p balloon dilatation in March 2017 8. Posttraumatic stress disorder (SNOMED CT 25870480) 9. Meralgia paresthetica ON NERVE CONDUCTION STUDY AT [facility] 10. Drusen 11. Type 2 diabetes mellitus (SNOMED CT 48431047) 12. Hyperlipidemia (SNOMED CT 41371354) 13. Hearing Loss PAST SURGICAL HISTORY turp on prostate 2023 left ingunal hernia repair precancerous lesion post pharynx FAMILY HISTORY Mother: at 71- CLAM SHUCKING MACHINE T[employer]ER cancer Father: at 72, prostate ca Siblings: 1 sister- HTN SOCIAL HISTORY Background: born and raised in [place], [place]. graduated Marital Status: 2 divorces, 3rd - having trouble Children: 1 son age 53- lives in [place] Lives with: Employment Status: retired [employer], [employer] Alcohol Use: a few drinks 3x a week Tobacco Use: only in the service - 3-4 years Exercise: walks 1.5 min daily ALLERGIES INTRAVASCULAR CONTRAST MEDIA, METFORMIN, GABAPENTIN, MIRTAZAPINE MEDICATIONS VA and Non VA meds were reconciled with the patient who left with a corrected copy. Active and Recently Outpatient Medications (excluding Supplies): Active Outpatient Medications Status ========= 1) [...] - - - - - - B/P: 136/76 (12/11/2023 11:34) pulse: 65 (12/11/2023 11:34) resp: 16 (12/11/2023 11:34) temp: 97.8 F [36.6 C] (12/11/2023 11:34) Ht: 69 in [175.3 cm] (10/15/2023 09:00) Wgt: 160 lb [72.57 kg] (12/11/2023 11:34) BMI: BMI: 23.7 Exam: - - - - - - - neuro grossly intact nromal carotids RECENT LABS Exm Date: NOV 08, 2023@14:20 Report: Study: Thyroid ultrasound. Comparison: Thyroid ultrasound [...] change to thyroid nodules, as described above. CT Angio Head and Neck Final Result [...] chest CT is recommended within 3-6 months. ASSESSMENT AND PLAN Active problems - Computerized Problem List is the source for the followin. Liver cyst [facility] for [facility] US 12/2023 left hepatic lobe incompletely septated 2.7 cm complex cyst 2. Exposure to potentially hazardous substance 3. Left inguinal hernia 4. Spinal stenosis in cervical region 5. Thyroid nodule left thyroid nodule, stable over years- seen on recetn CT brain- no need to repeat u/s- stable 6. Elevated PSA 7. Esophageal stricture s/p balloon dilatation in March 2017 8. Posttraumatic stress disorder (SNOMED CT 94995480) 9. Meralgia paresthetica ON NERVE CONDUCTION STUDY AT [facility] 10. Drusen 11. Type 2 diabetes mellitus (SNOMED CT 12775233) 12. Hyperlipidemia (SNOMED CT 29203223) 13. Hearing Loss HEALTH MAINTENANCE Colonoscopy- Dr. Dao- done 18 mo ago Abdominal Aortic Aneurysm Screening (due at age 67 if smoker/prev smoker) - Prostate screening - sees urology Tetanus: due every 10 years Pneumonia Vacccine: Flu Vaccine: due yearly Covid Vaccine: due yearly FOLLOW UP has apt scheduled 04/15/24 VISIT TYPE:a MODERATE complexity visit where 30 minutes was spent in direct patient care, review of records and documentation. /zoë/ ESTEFANY OVERTON D.O. PHYSICIAN Signed: 12/11/2023 12:16 ESTEFANY OVERTON [facility]
--- OUTSIDE RECORDS SUMMARY | 2024-01-01 10:30 | XMS_ITS ---
Author Name [place] Address [address] [place] [address] Care Team Providers Care Cordage Sales Representative Name Role Phone ESTEFANY OVERTON Primary Care [...] Name Patient's Relationship to Policy Flores GHISLAINE BCBS [facility] PREFERRED PROVIDER ORGANIZAT ION (PPO) BASIC FAMIL Y Feb 23, 2001 [id number] [phone] Priya BLAND SPOUSE ANTHEM BCBS [facility] PREFERRED PROVIDER ORGANIZAT ION (PPO) FEP BASIC FAMIL Y Feb 23, 2001 [id number] EDWINA SPOUSE GHISLAINE FEP PREFERRED PROVIDER ORGANIZAT ION (PPO) FEP BASIC FAMIL Y Feb 23, 2001 112 [id number] [phone] Priya BLAND SPOUSE BCBS [place] FEP PREFERRED PROVIDER ORGANIZAT ION (PPO) BASIC FAMIL Y Feb 23, 2001 [id number] Priya [place]BS [place] PREFERRED PROVIDER ORGANIZAT ION (PPO) BASIC FAMIL Y Feb 23, 2001 [id number] Priya BLAND SPOUSE CAREMARK FEP ([id number]) PRESCRIPT ION FEP RX Feb 23, 2001 [id number] [phone] Priya BLAND SPOUSE CAREMARK FEP BCBS PRESCRIPT ION CAREM ARK FEPRX Feb 11, 2010 [id number] [phone] Priya BLAND SPOUSE CAREMARK-F EP BCBS PRESCRIPT ION BCBS FEP PLAN Feb 11, 2010 [id number] [phone] Priya BLAND SPOUSE MEDICARE (WN) MEDICARE () PART B Feb 11, 2015 PART B [id number] [facility] [place],F RANK PATIENT MEDICARE (WN) MEDICARE () PART B Feb 11, 2015 PART B [id number] [facility] [place],F RANK PATIENT MEDICARE (WNR) MEDICARE () PART B Feb 11, 2015 PART B [id number] [facility] [place],F RANK PATIENT MEDICARE (WN) MEDICARE () PART B Feb 11, 2015 PART B [id number] [facility] [place],F RANK PATIENT MEDICARE (WNR) MEDICARE () PART B Feb 11, 2015 PART B [id number] [facility] [place],F RANK PATIENT MEDICARE (WNR) MEDICARE () PART A Apr 11, 2012 PART A [id number] [facility] [place],F RANK PATIENT MEDICARE (WNR) MEDICARE () PART A Apr 11, 2012 PART A [id number] [facility] [place],F RANK PATIENT MEDICARE (WNR) MEDICARE () PART A Apr 11, 2012 PART A [id number] [facility] [phone] [place],F RANK PATIENT MEDICARE (WNR) MEDICARE () PART A Apr 11, 2012 PART A [id number] [facility] Sae BLAND PATIENT MEDICARE (WNR) MEDICARE (M) PART A Apr 11, 2012 PART A [id number] [facility] Sae BLAND PATIENT Selected Encounter This section includes the information on record at [place] for the Encounter. Date/Time Encounter Type Encounter Description Reason Provider Source Jan 01, 2024 02:30 PM HEARING AID CHECK ONE EAR AUDIOLOGY ICD-10-CM Z46.1 Encounter for fitting and adjustment of hearing aid JERED RAUSCH Prerna Encounter Template Text not used by [place] Assessments - Encounter Diagnoses This section includes the primary and secondary diagnoses documented for the Encounter. Date/Time Primary/Secondary Diagnosis Diagnosis Name Provider Source Jan 01, 2024 02:42 PM PRIMARY Encounter for fitting and adjustment of hearing aid DARIANA CAMARILLO [place] [facility] [place] [facility] Jan 01, 2024 02:42 PM SECONDARY Sensorineural hearing loss, bilateral DARIANA CAMARILLO [facility] [place] [facility] Plan of Treatment: Future Appointments (+ 6 months) and Future Tests (+/- 45 days) The Plan of Treatment section includes future care activities for the patient from all [place] [facility] This section includes future appointments and future orders which are active, pending or scheduled. Future Appointments This section includes appointments that were scheduled to occur 6 months from the date of the Encounter, up to a maximum of 20 appointments. The data comes from all [place] treatment facilities. Appointment Date/Time Appointment Type Appointme nt Facility Name Jan 22, 2024 09:00 AM AMBULATORY - MEDICINE [place] [facility] [place] [facility] Feb 19, 2024 10:40 AM AMBULATORY - MEDICINE [place] [facility] [place] [facility] Mar 11, 2024 01:40 PM AMBULATORY - MEDICINE [place] [facility] [place] [facility] Mar 25, 2024 11:00 AM AMBULATORY - MEDICINE [place] [facility] [place] [facility] Apr 15, 2024 10:00 AM AMBULATORY - MEDICINE [place] [facility] [place] [facility] May 26, 2024 08:00 AM AMBULATORY - MEDICINE [place] [facility] [place] [facility] May 27, 2024 02:00 PM AMBULATORY - MEDICINE [place] [facility] [place] [facility] May 27, 2024 02:15 PM AMBULATORY - MEDICINE [place] [facility] [place] [facility] May 27, 2024 02:30 PM AMBULATORY - MEDICINE [place] [facility] [place] [facility] Social History: Smoking Status (Most current) and Tobacco Use (All prior to encounter date) This section includes the most current, and the historical, smoking and tobacco- related health factors from the [place] facility where the Encounter took place. Current Smoking Status This section includes the most current smoking, or tobacco-related health factor, from the [place] facility where the Encounter took place. Date/Time Current Smoking Status Comment [facility] Dec 11, 2023 11:30 AM VA-TOBACCO QUIT 15 YRS OR MORE [place] [facility] [place] [facility] Tobacco Use History This section includes a history of the smoking, or tobacco-related health factors, that were collected on or before the date of the Encounter. The data comes from the [place] facility where the Encounter took place. Date/Time Smoking Status/Tobac co Use Comment [facility] Dec 11, 2023 11:30 AM VA-TOBACCO QUIT 15 YRS OR MORE [facility] [place] [facility] Dec 18, 2022 10:00 AM VA-TOBACCO FORMER USER [facility] [place] [facility] Dec 18, 2022 10:00 AM VA-TOBACCO QUIT 15 YRS OR MORE [facility] [place] [facility] Dec 06, 2021 09:30 AM VA-TOBACCO FORMER USER [facility] [place] [facility] Dec 06, 2021 09:30 AM VA-TOBACCO QUIT 15 YRS OR MORE [facility] [place] [facility] Nov 03, 2020 03:30 PM VA-TOBACCO FORMER USER [facility] [place] [facility] Nov 03, 2020 03:30 PM VA-TOBACCO QUIT 15 YRS OR MORE [facility] [place] [facility] Dec 04, 2019 10:30 AM VA-TOBACCO FORMER USER [facility] [place] [facility] Dec 04, 2019 10:30 AM VA-TOBACCO QUIT 15 YRS OR MORE [facility] [place] [facility] May 30, 2018 09:32 AM VA-TOBACCO FORMER USER [facility] [place] [facility] May 30, 2018 09:32 AM VA-TOBACCO QUIT 15 YRS OR MORE [facility] Nov 29, 2017 09:01 AM VA-TOBACCO FORMER USER [facility] Nov 29, 2017 09:01 AM VA-TOBACCO QUIT 15 YRS OR MORE [facility] Dec 13, 2016 08:30 AM LIFETIME NON-TOBACCO USER [facility] Jul 13, 2015 09:13 PM QUIT TOBACCO USE > 7 YEARS AGO . [facility] Feb 15, 2009 09:19 AM QUIT TOBACCO USE > 7 YEARS AGO quit when he left service in 1968. [facility] Radiology Reports: +/- 30 days of [...] the Encounter. The data comes from all [place] treatment facilities. Date/Time Radiology Report Provider Source Dec 17, 2023 08:56 AM ULTRASOUND ABDOMEN LIMITED: SRAVANTHI BLAND [id number] M Exm Date: DEC 17, 2023@08:56 Req Phys: ESTEFANY OVERTON Loc: CWM/NO/PACT EIGHT (Req'g Loc) Img Loc: ULTRASOUND Service: [place] [address] (Case [id number] COMPLETE) ULTRASOUND ABDOMEN LIMITED (US Detailed) CPT:81150 Reason for Study: f/u liver cyst Clinical History: Report Status: Verified Date Reported: DEC 17, 2023 Date Verified: DEC 17, 2023 Oyster Floater E-Sig: Report: ULTRASOUND ABDOMEN LIMITED Clinical History: Follow-up liver cyst Comparison: Abdominal ultrasound from January 10, 2023 Technique: Abdominal ultrasound was supervised and protocoled [place] facility and [place] national teleradiology program for interpretation Findings: A [...] hepatic lobe septated cyst. READING PHYSICIAN: Rona Sheppard -[id number] 12/17/2023 10:28 [facility] [employer] Teleradiology Program [phone] (For Medical Practitioner Use Only) Attention Patients / Veterans: If you have questions or concerns about these test results, please contact your ordering provider or primary care team. Primary Diagnostic Code: NO ALERT REQUIRED Primary Interpreting Staff: RADIOLOGY,OUTSIDE SERVICE, Staff Physician / [facility]TSIDE SERVICE [facility] Encounter Notes: All associated encounter notes This section contains the clinical notes associated to the Encounter. Date/Time Encounter Note(s) Provider Source Jan 01, 2024 12:58 PM AUDIOLOGY NOTE: LOCAL TITLE: AUDIOLOGY HEALTH DIELECTRIC EMBOSSING MACHINE OPERATOR STANDARD TITLE: AUDIOLOGY NOTE DATE OF NOTE: JAN 01, 2024@12:58 ENTRY DATE: JAN 01, 2024@12:58:41 AUTHOR: MAYELA CAMARILLO COSIGNER: JERED RAUSCH URGENCY: STATUS: COMPLETED January 01, 2024 History/Background: [place] was seen for a hearing aid follow up, accompanied by his , Emilee. The presented today stating his right hearing aid is falling apart, he noted it is working. Hearing aids: [employer] Serial Numbers: [id number] Battery size: 10 Date Issued: 10/16/2022 Initial inspection revealed a crack along the face plate. The right hearing aid will be sent to the jukebox route driver for repair and will be shipped directly to the [place] via [facility]. Plan: The [place] will follow up as needed. /zoë/ MAYELA CAMARILLO Audiology Health Rigger Chief Signed: 01/01/2024 14:43 /zoë/ JERED Flores, [facility]-A CHIEF, AUDIOLOGY/NETWORK SUPPORT Cosigned: 01/01/2024 16:59 MAYELA CAMARILLO [facility]
--- OUTSIDE RECORDS SUMMARY | 2024-01-22 05:00 | XMS_ITS ---
Author Name [facility] [place] Address [address] [place] [address] Care Team Providers Care Insurance Marketing Rep Name Role Phone ESTEFANY OVERTON Primary Care [...] Patient's Relationship to Policy Flores GHISLAINE BCBS [facility] PREFERRED PROVIDER ORGANIZAT ION (PPO) BASIC FAMIL Y Feb 23, 2001 [id number] [phone] Priya BLAND SPOUSE ANTHEM BCBS [facility] PREFERRED PROVIDER ORGANIZAT ION (PPO) FEP BASIC FAMIL Y Feb 23, 2001 [id number] EDWINA SPOUSE GHISLAINE FEP PREFERRED PROVIDER ORGANIZAT ION (PPO) FEP BASIC FAMIL Y Feb 23, 2001 [id number] [phone] Priya [place] PREFERRED PROVIDER ORGANIZAT ION (PPO) BASIC FAMIL Y Feb 23, 2001 [id number] Priya BLAND SPOU[place] FED[place] PREFERRED PROVIDER ORGANIZAT ION (PPO) BASIC FAMIL Y Feb 23, 2001 [id number] [phone] EDWINAPriya SANTOS SPOUSE CAREMARK FEP ([id number]) PRESCRIPT ION FEP RX Feb 23, 2001 [id number] [id number] Priya BLAND SPOUSE [place]ARK FEP BCBS PRESCRIPT ION CAREM ARK FEPRX Feb 11, 2010 [id number] [phone] Priya BLAND SPOUSE CAREMARK-F EP BCBS PRESCRIPT ION BCBS FEP PLAN Feb 11, 2010 [id number] [phone] EDWINAPriya SANTOS SPOUSE MEDICARE (WN) MEDICARE () PART B Feb 11, 2015 PART B [id number] [facility] [phone] [place],F RANK PATIENT MEDICARE (WN) MEDICARE () PART B Feb 11, 2015 PART B [id number] [facility] [phone] [place],F RANK PATIENT MEDICARE (WNR) MEDICARE () PART B Feb 11, 2015 PART B [id number] [facility] [place],F RANK PATIENT MEDICARE (WN) MEDICARE () PART B Feb 11, 2015 PART B [id number] [facility] [phone] [place],F RANK PATIENT MEDICARE (WNR) MEDICARE () PART B Feb 11, 2015 PART B [id number] [facility] [place],F RANK PATIENT MEDICARE (WNR) MEDICARE () PART A Apr 11, 2012 PART A [id number] [facility] [place],F RANK PATIENT MEDICARE (WNR) MEDICARE () PART A Apr 11, 2012 PART A [id number] [phone] [place],F RANK PATIENT MEDICARE (WNR) MEDICARE () PART A Apr 11, 2012 PART A [id number] [facility] [place],F RANK PATIENT MEDICARE (WNR) MEDICARE () PART A Apr 11, 2012 PART A [id number] [facility] Sae BLAND RANK PATIENT MEDICARE (WNR) MEDICARE (M) PART A Apr 11, 2012 PART A [id number] Sae BLAND RANK PATIENT Selected Encounter This section includes the information on record at [place] for the Encounter. Date/Time Encounter Type Encounter Description Reason Provider Source Jan 22, 2024 09:00 AM FIT SPECTACLES MULTIFOCAL OPTOMETRY ICD-10-CM Z46.0 Encounter for fit/adjst of spectacles and contact lenses CAMERON HANSON [facility] Encounter Template Text not used by [place] Assessments - Encounter Diagnoses This section includes the primary and secondary diagnoses documented for the Encounter. Date/Time Primary/Secondary Diagnosis Diagnosis Name Provider Source Jan 22, 2024 09:14 AM PRIMARY Encounter for fit/adjst of spectacles and contact lenses CAMERON HANSON [place] [facility] [place] [facility] Plan of Treatment: Future Appointments (+ 6 months) and Future Tests (+/- 45 days) The Plan of Treatment section includes future care activities for the patient from all [place] treatmentfacilities. This section includes future appointments and future orders which are active, pending or scheduled. Future Appointments This section includes appointments that were scheduled to occur 6 months from the date of the Encounter, up to a maximum of 20 appointments. The data comes from all [place] treatment facilities. Appointment Date/Time Appointment Type Appointme nt Facility Name Feb 19, 2024 10:40 AM AMBULATORY - MEDICINE ID C [facility] [place] [facility] Mar 11, 2024 01:40 PM AMBULATORY - MEDICINE ID C [facility] [place] [facility] Mar 25, 2024 11:00 AM AMBULATORY - MEDICINE ID C [facility] [place] [facility] Apr 15, 2024 10:00 AM AMBULATORY - MEDICINE ID C [facility] [place] [facility] May 26, 2024 08:00 AM AMBULATORY - MEDICINE ID C [facility] [place] [facility] May 27, 2024 02:00 PM AMBULATORY - MEDICINE ID C [facility] [place] [facility] May 27, 2024 02:15 PM AMBULATORY - MEDICINE ID C [facility] [place] [facility] May 27, 2024 02:30 PM AMBULATORY - MEDICINE ID C [facility] [place] [facility] Social History: Smoking Status (Most current) and Tobacco Use (All prior to encounter date) This section includes the most current, and the historical, smoking and tobacco- related health factors from the [place] facility where the Encounter took place. Current Smoking Status This section includes the most current smoking, or tobacco-related health factor, from the [place] facility where the Encounter took place. Date/Time Current Smoking Status Comment Facil it Dec 11, 2023 11:30 AM VA-TOBACCO FORMER USER ID [facility] [place] [facility] Tobacco Use History This section includes a history of the smoking, or tobacco-related health factors, that were collected on or before the date of the Encounter. The data comes from the [place] facility where the Encounter took place. Date/Time Smoking Status/Tobac co Use Comment Facility Dec 11, 2023 11:30 AM VA-TOBACCO QUIT 15 YRS OR MORE [facility] [place] [facility] Dec 18, 2022 10:00 AM VA-TOBACCO FORMER USER [facility] [place] [facility] Dec 18, 2022 10:00 AM VA-TOBACCO QUIT 15 YRS OR MORE [facility] [place] [facility] Dec 06, 2021 09:30 AM VA-TOBACCO FORMER USER [facility] [place] [facility] Dec 06, 2021 09:30 AM VA-TOBACCO QUIT 15 YRS OR MORE [facility] [place] [facility] Nov 03, 2020 03:30 PM VA-TOBACCO FORMER USER [facility] [place] [facility] Nov 03, 2020 03:30 PM VA-TOBACCO QUIT 15 YRS OR MORE [facility] [place] [facility] Dec 04, 2019 10:30 AM VA-TOBACCO FORMER USER [facility] [place] [facility] Dec 04, 2019 10:30 AM VA-TOBACCO QUIT 15 YRS OR MORE [facility] [place] [facility] May 30, 2018 09:32 AM VA-TOBACCO FORMER USER [facility] [place] [facility] May 30, 2018 09:32 AM VA-TOBACCO QUIT 15 YRS OR MORE [facility] [place] [facility] Nov 29, 2017 09:01 AM VA-TOBACCO FORMER USER [facility] [place] [facility] Nov 29, 2017 09:01 AM VA-TOBACCO QUIT [facility] YRS OR [facility] Dec 13, 2016 08:30 AM LIFETIME [facility]ACCO [facility] Jul 13, 2015 09:13 PM QUIT TOBACCO USE > 7 YEARS AGO . [facility] Feb 15, 2009 09:19 AM QUIT TOBACCO USE > 7 YEARS AGO quit when he left service in 1968. [facility] Encounter Notes: All associated encounter notes This section contains the clinical notes associated to the Encounter. Date/Time Encounter Note(s) Provider Source Jan 22, 2024 09:09 AM OPTOMETRY NOTE: LOCAL TITLE: OPTOMETRY NOTE STANDARD TITLE: OPTOMETRY NOTE DATE OF NOTE: JAN 22, 2024@09:09 ENTRY DATE: JAN 22, 2024@09:09:34 AUTHOR: CAMERON HANSON EXP COSIGNER: URGENCY: STATUS: COMPLETED Patient came in today with outside RX w/[facility] [address] [address] PH:[phone] RX date 12-20-2023 Exp date: unknown ?? 1 or 2 years Frame: [facility] RX Information OD:+1.75 -0.75 35 2^ Base Out OS:+1.25 -0.25 35 2^ Base Out ADD:+2.50 FITTING INFORMATION FPD: NPD: Spencer:R:27 L:29 SEG HT:R:20 L:20 Tint:None Shade:None VA Billable Items FRAME: 27 [facility] Right Lens: PLASTIC VA PROGRESSIVE PHOTOCHROMIC PARSONS 1.498 PLASTIC CR39 Left Lens: PLASTIC VA PROGRESSIVE PHOTOCHROMIC PARSONS 1.498 PLASTIC CR39 KLEAR ANTI-REFLECTIVE COATING CLIN items Open Market - AR Coating Open Market - Open Market Frame 0004 - Progressive - Glass Plastic Poly 0005 - Transition /zoë/ [facility] Signed: 01/22/2024 09:14 CAMERON HANSON [facility]
--- OUTSIDE RECORDS SUMMARY | 2024-04-15 06:00 | XMS_ITS | Encounter Summary ---
Author Name [facility] [place] [facility] [place] Address [address] [place] [address] Care Team Providers Care Photographic Lithographer Name Role Phone ESTEFANY OVERTON Primary Care [...] Name Patient's Relationship to Policy Flores [facility] PREFERRED PROVIDER ORGANIZAT ION (PPO) BASIC FAMIL Y Feb 23, 2001 [id number] [phone] Priya BLAND SPOUSE ANTHEM BCBS FEP PREFERRED PROVIDER ORGANIZAT ION (PPO) FEP BASIC FAMIL Y Feb 23, 2001 112 [id number] [phone] EDWINA SPOUSE GHISLAINE FEP PREFERRED PROVIDER ORGANIZAT ION (PPO) FEP BASIC FAMIL Y Feb 23, 2001 [id number] [phone] Priya BLAND SPOUSE BCBS PR FEP PREFERRED PROVIDER ORGANIZAT ION (PPO) BASIC FAMIL Y Feb 23, 2001 [id number] Priya BLAND SPOUSE [place] FEDERAL PREFERRED PROVIDER ORGANIZAT ION (PPO) BASIC FAMIL Y Feb 23, 2001 [id number] Priya BLAND SPOUSE [place] FEP ([id number]) PRESCRIPT ION FEP RX Feb 23, 2001 [id number] [phone] Priya BLAND SPOUSE [place] FEP BCBS PRESCRIPT ION CAREM ARK FEPRX Feb 11, 2010 [id number] Priya BLAND SPOUSE [place]-F EP BCBS PRESCRIPT ION BCBS FEP PLAN Feb 11, 2010 [id number] Priya BLAND SPOUSE MEDICARE (WN) MEDICARE () PART B Feb 11, 2015 PART B [id number] [facility] [place],F RANK PATIENT MEDICARE (WN) MEDICARE () PART B Feb 11, 2015 PART B [id number] [facility] [place],F RANK PATIENT MEDICARE (WN) MEDICARE () PART B Feb 11, 2015 PART B [id number] [id number] [place],F RANK PATIENT MEDICARE (WN) MEDICARE () PART B Feb 11, 2015 PART B [id number] [facility] [phone] [place],F RANK PATIENT MEDICARE (WN) MEDICARE () PART B Feb 11, 2015 PART B [id number] [facility] [phone] [place],F RANK PATIENT MEDICARE (WNR) MEDICARE () PART A Apr 11, 2012 PART A [id number] [facility] [place],F RANK PATIENT MEDICARE (WN) MEDICARE () PART A Apr 11, 2012 PART A [id number] [facility] [phone] [place],F RANK PATIENT MEDICARE (WNR) MEDICARE () PART A Apr 11, 2012 PART A [id number] [facility] [place],F RANK PATIENT MEDICARE (WNR) MEDICARE () PART A Apr 11, 2012 PART A [id number] [facility] Sae BLAND PATIENT MEDICARE (WNR) MEDICARE (M) PART A Apr 11, 2012 PART A [id number] [facility] [phone] Sae BLAND PATIENT Selected Encounter This section includes the information on record at [place] for the Encounter. Date/Time Encounter Type Encounter Description Reason Provider Source Apr 15, 2024 10:00 AM OFFICE O/P EST MOD 30 MIN PRIMARY CARE/MEDICINE ICD-10-CM 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 FURCOLO,ESTEFANY IHE Encounter Template Text not used by [place] Assessments - Encounter Diagnoses This section includes the primary and secondary diagnoses documented for the Encounter. Date/Time Primary/Secondary Diagnosis Diagnosis Name Provider Source Apr 30, 2024 01:46 PM PRIMARY Cystic disease of liver FURCOLO,ESTEFANY [facility] [place] [facility] Apr 30, 2024 01:46 PM SECONDARY Contact with and exposure to other hazardous substances FURCOLO,ESTEFANY [facility] [place] [facility] Apr 30, 2024 01:46 PM SECONDARY Elevated prostate specific antigen [PSA] FURCOLO,ESTEFANY [facility] [place] [facility] Apr 30, 2024 01:46 PM SECONDARY Esophageal obstruction FURCOLO,ESTEFANY [facility] [place] [facility] Apr 30, 2024 01:46 PM SECONDARY Meralgia paresthetica, unspecified lower limb FURCOLO,ESTEFANY [facility] [place] [facility] Apr 30, 2024 01:46 PM SECONDARY Nontoxic single thyroid nodule FURCOLO,ESTEFANY [facility] [place] [facility] Apr 30, 2024 01:46 PM SECONDARY Post-traumatic stress disorder, unspecified FURCOLO,ESTEFANY [facility] [place] [facility] Apr 30, 2024 01:46 PM SECONDARY Pure hypercholesterolem ia, unspecified FURCOLO,ESTEFANY [facility] [place] [facility] Apr 30, 2024 01:46 PM SECONDARY Spinal stenosis, cervical region FURCOLO,ESTEFANY [facility] [place] [facility] Apr 30, 2024 01:46 PM SECONDARY Type 2 diabetes mellitus without complications FURCOLO,ESTEFANY [facility] Plan of Treatment: Future Appointments (+ 6 months) and Future Tests (+/- 45 days) The Plan of Treatment section includes future care activities for the patient from [facility] [place] [facility] This section includes future appointments and future orders which are active, pending or scheduled. Future Appointments This section includes appointments that were scheduled to occur 6 months from the date of the Encounter, up to a maximum of 20 appointments. The data comes from all [place] treatment facilities. Appointment Date/Time Appointment Type Appointme nt Facility Name May 26, 2024 08:00 AM AM[place]UL[place]ICINE [place] [facility] [place] [facility] May 27, 2024 02:00 PM AM[place] [facility] [place] [facility] May 27, 2024 02:15 PM [place]INE [place] [facility] [place] [facility] May 27, 2024 02:30 PM [place]ICINE [place] [facility] [place] [facility] Aug 07, 2024 10:30 AM AMBULATORY - NONE [facility] [place] [facility] Aug 25, 2024 10:00 AM [place]IC[place] [facility] [place] [facility] Oct 05, 2024 01:30 PM [facility]ICINE [place] [facility] [place] [facility] Oct 09, 2024 02:00 PM [facility] Lab Results: +/- 30 days of the encounter This section includes the Chemistry and Hematology Lab Results on record with [place] for the patient. Radiology Reports and Pathology Reports are provided separately, in subsequent sections. Lab Results This section contains the Chemistry/Hematology Results that were resulted 30 days before or 30 daysafter the date of the Encounter. Date/Time Source Result Type Result - Unit Interpretation Reference Range Specimen Type Comment Apr 01, 2024 09:16 AM [facility] LIPID PANEL FASTING SERUM Specimen Type: SERUM No comment entered. Ordering Provider: ESTEFANY OVERTON Report Released Date/Time: Oct 15, 2023 09:38 AM Reporting Lab: [address] [address] Performing Lab: [address] [address] CHOLESTEROL 239 mg/dL H TRIGLYCERIDE 63 mg/dL 0-150 LDL calculated 144 mg/dL H 0-129 CHOL/HDL 2.9 HDL CHOLESTEROL 82 mg/dL H 40-60 Apr 01, 2024 09:16 AM [facility] BASIC METABOLIC PANEL (fasting) SERUM Specime n Type: SERUM No comment entered. Ordering Provider: ESTEFANY OVERTON Report Released Date/Time: Oct 15, 2023 09:38 AM Reporting Lab: [facility] [address] [address] Performing Lab: [facility] [address] [address] UREA NITROGEN 15 mg/dL 7-25 GLUCOSE 136 mg/dL H 65-100 SODIUM 142 mmol/L 135-145 POTASSIUM 4.1 mmol/L 3.5-5.0 CHLORIDE 105 mmol/L 100-110 CO2 27 meq/L 20-30 CALCIUM 9.6 mg/dL 8.5-10.2 CREATININE, Serum 0.80 mg/dL 0.50-1.40 eGFR(CKD-EPI 2020) >90 mL/min >60 Apr 01, 2024 09:16 AM [facility] HEMOGLOBIN A1C PANEL BLOOD Specimen Type: BLO OD Comment: Values obtained from A1C measurements can vary. For atypical A1C assays, a reported value of 7.0 could actually be between 6.72 and 7.28 if measured by a reference method. A reported value of 9.0 could actually be between 8.73 and 9.27. Ref: http://www.ngsp.org/CAPdata.asp Ordering Provider: ESTEFANY OVERTON Report Released Date/Time: Oct 15, 2023 09:43 AM Reporting Lab: [facility] [address] [address] Performing Lab: [facility] [address] [address] HEMOGLOBIN A1C 6.1 H 4.0-5.6 Apr 01, 2024 09:16 AM [facility] MICROALBUMIN CREATININE RATIO PANEL URINE Spe cimen Type: URINE No comment entered. Ordering Provider: ESTEFANY OVERTON Report Released Date/Time: Oct 15, 2023 09:43 AM Reporting Lab: [address] [address] Performing Lab: [address] [address] MICROALBUMIN/CREATININE RATIO 6.0 mg/g 0 -29.9 MICROALBUMIN,QUANTITATIVE 1.3 mg/dL RR U NAVAIL CREATININE URINE 217.54 mg/dL Apr 01, 2024 09:16 AM [facility] PSA SERUM Specimen Type: SERUM No comment entered. Ordering Provider: ESTEFANY OVERTON Report Released Date/Time: Mar 19, 2024 08:20 AM Reporting Lab: [address] [address] Performing Lab: [address] [address] PSA 3.98 ng/mL 0.00-4.00 Vital Signs: All taken on the encounter date This section contains inpatient and outpatient Vital Signs collected on the date of the Encounter. Date/Time Temperature Pulse Blood Pressure Respiratory Rate SP02 Pain Height Weight Body Mass Index Source Apr 15, 2024 10:10 AM 97.7 68 131/73 16 98 0 160 24 [facility] Social History: Smoking Status (Most current) and Tobacco Use (All prior to encounter date) This section includes the most current, and the historical, smoking and tobacco- related health factors from the [place] facility where the Encounter took place. Current Smoking Status This section includes the most current smoking, or tobacco-related health factor, from the [place] facility where the Encounter took place. Date/Time Current Smoking Status Comment [facility] Dec 11, 2023 11:30 AM [place]-TOBACCO FORMER USER [facility] Tobacco Use History This section includes a history of the smoking, or tobacco-related health factors, that were collected on or before the date of the Encounter. The data comes from the [place] facility where the Encounter took place. Date/Time Smoking Status/Tobac co Use Comment Facility Dec 11, 2023 11:30 AM [place]-TOBAC[place] QU[place] 15 YRS OR MORE [facility] [place] [facility] Dec 18, 2022 10:00 AM VA-TOBACCO FORMER USER [facility] [place] [facility] Dec 18, 2022 10:00 AM VA-TOBACCO QUIT 15 YRS OR MORE [facility] [place] [facility] Dec 06, 2021 09:30 AM VA-TOBACCO FORMER USER [facility] [place] [facility] Dec 06, 2021 09:30 AM VA-TOBACCO QUIT 15 YRS OR MORE [facility] [place] [facility] Nov 03, 2020 03:30 PM VA-TOBACCO FORMER USER [facility] [place] [facility] Nov 03, 2020 03:30 PM VA-TOBACCO QUIT 15 YRS OR MORE [facility] [place] [facility] Dec 04, 2019 10:30 AM VA-TOBACCO FORMER USER [facility] [place] [facility] Dec 04, 2019 10:30 AM VA-TOBACCO QUIT 15 YRS OR MORE [facility] [place] [facility] May 30, 2018 09:32 AM VA-TOBACCO FORMER USER [facility] [place] [facility] May 30, 2018 09:32 AM VA-TOBACCO QUIT 15 YRS OR MORE [facility] [place] [facility] Nov 29, 2017 09:01 AM VA-TOBACCO FORMER USER [facility] [place] [facility] Nov 29, 2017 09:01 AM VA-TOBACCO QUIT 15 YRS OR MORE [facility] [place] [facility] Dec 13, 2016 08:30 AM LIFETIME NON-TOBACCO USER [facility] [place] [facility] Jul 13, 2015 09:13 PM QUIT TOBACCO USE > 7 YEARS AGO . [facility] [place] [facility] Feb 15, 2009 09:19 AM QUIT TOBACCO USE > 7 YEARS AGO quit when he left service in 1968. [facility] [place] [facility] Encounter Notes: All associated encounter notes This section contains the clinical notes associated to the Encounter. Date/Time Encounter Note(s) Provider Source May 28, 2024 02:48 PM ADMINISTRATIVE NOTE: LOCAL TITLE: FAX/MAIL RECEIVED STANDARD TITLE: ADMINISTRATIVE NOTE DATE OF NOTE: MAY 28, 2024@14:48 ENTRY DATE: MAY 28, 2024@14:48:11 AUTHOR: MADELINE DAO EXP COSIGNER: URGENCY: STATUS: COMPLETED Document Received On: May Document Type: Office Visit Note Date of Service: May Facility and or Provider: [facility] surgical [facility] Contact Information: PCP of Record: MAXI OVERTONA Next visit with PCP: 08/07/2024 10:30 [facility] TBI POLYTRM OPTOMETRY 08/25/2024 10:00 [facility] DERMATOLOGY INSURANCE AND BENEFITS CLERK 1 AM 10/13/2024 10:30 [facility] PACT EIGHT 11/25/2024 15:00 [facility] OPTOMETRY 3 Primary Care May keep copies of this document for up to 14 days and send the original for scanning. Patient Name: Aryan Bland Chief Complaint: Dull aching pain sip Left inguinal hernia repair 2022 Aryan is a 79 year old man with a medical history significant for sleep apnea, Type 2 diabetes, hyperlipidemia, adenomatous colon polyp, peptic stricture of esophagus, PTSD, GERD, BPH, and h/o left inguinal hernia repair in 2022. A colonoscopy was done on 01/04/[address] Dao, recall 5 years. Social hx: He lives with his . Tobacco: quit smoking in 1968. Alcohol: 2 drinks a week, wine. No drug use. HPI: The patient presents for evaluation of his left inguinal region. He was pain-free until a few months ago. He has now had episodic ache on the left side. He felt what he thought was a spitting suture but can no longer appreciate this. He said a significant weight loss since his procedure with urology. He is complaining of scrotal erythema and is seeing urology Assessment/Plan: Groin pain-we discussed post hernia groin pain. Since his pain is mostly after significant activity I would recommend treating it as a muscle pull with warming up gradually and icing after significant activity. We discussed 20 minutes on 20 minutes off for ice. I also recommend anti-inflammatories but the patient is concerned about taking any oral medications. We also discussed Kenalog injections which she would decline today but may consider in the future. Adenopathy-patient has palpable adenopathy in his groins bilaterally. Is also some minimal adenopathy in his axilla. Will plan ultrasound to better evaluate. These lymph nodes do not appear tender or the cause of his pain Type 11 diabetes - The patient's diabetes may increase perioperative risks of poor wound healing, infection, and/or systemic complications. GERD - The patient's GERD may increase the risks of aspiration altering the effects of anesthetics, if needed, and/or postop GI complications. /zoë/ MADELINE DAO LPN License Practical Nurse Signed: 05/28/2024 14:51 MADELINE DAO [facility] [place] [facility] Apr 15, 2024 10:17 AM PHYSICIAN NOTE: LOCAL TITLE: MD NOTE STANDARD TITLE: PHYSICIAN NOTE DATE OF NOTE: APR 15, 2024@10:17 ENTRY DATE: APR 15, 2024@10:17:10 AUTHOR: ESTEFANY OVERTON COSIGNER: URGENCY: STATUS: COMPLETED NOTE Has ADDENDA ARYAN BLAND Jeovanny is a 78 year old WHITE MALE who is being seen today in primary care for routine follow-up CARE TEAM Community Primary Care Provider: [facility] Specialists: derm podiatry [facility]: urology- Dr. Naman GUZMAN- Dr. Dao ENT- Dr. 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 Liver cyst due for rpt US 12/2023 left hepatic lobe incompletely septated 2.7 cm complex cyst 2. Exposure to potentially hazardous substance 3. Spinal stenosis in cervical region 4. Thyroid nodule left thyroid nodule, stable over years 5. Elevated PSA 6. Esophageal stricture s/p balloon dilatation in March 2017 7. Posttraumatic stress disorder (SNOMED CT 06282890) 8. Meralgia paresthetica ON NERVE CONDUCTION STUDY AT [facility] 9. Drusen 10. Type 2 diabetes mellitus (SNOMED CT 30443453) 11. Hyperlipidemia (SNOMED CT 97860241) 12. Hearing Loss PAST SURGICAL HISTORY turp on prostate 2023 left ingunal hernia repair precancerous lesion post pharynx FAMILY HISTORY Mother: at 71- SPECIAL OFFICER cancer Father: at 72, prostate ca Siblings: 1 sister- HTN SOCIAL HISTORY Background: born and raised in [place], [place]. graduated Marital Status: 2 divorces, 3rd - having trouble Children: 1 son age 53- lives in [place] Lives with: Employment Status: retired [employer], [employer] Alcohol Use: a few drinks 3x a week Tobacco Use: only in the service - 3-4 years Exercise: walks 1.5 min daily ALLERGIES INTRAVASCULAR CONTRAST MEDIA, METFORMIN, GABAPENTIN, MIRTAZAPINE MEDICATIONS Active and Recently Outpatient Medications (excluding Supplies): Active Outpatient Medications Status 1) ATORVASTATIN CALCIUM 20MG TAB TAKE ONE-HALF TABLET BY MOUTH ACTIVE (S) ONCE DAILY Indication: FOR HIGH CHOLESTEROL 2) CARBOXYMETHYLCELLULOSE 0.5%(PF)OP RAZA UD INSTILL 1 DROP INTO ACTIVE EACH EYE EVERY 2 HOURS WHILE AWAKE Indication: FOR DRY EYE 3) CARBOXYMETHYLCELLULOSE NA 1% OPH GEL APPLY 1 DROP INTO EACH ACTIVE EYE AT BEDTIME Indication: FOR DRY EYE 4) CYANOCOBALAMIN 1000MCG TAB TAKE ONE TABLET BY MOUTH ONCE ACTIVE DAILY Indication: FOR PREVENTION OF VITAMIN B12 DEFICIENCY 5) LORAZEPAM 0.5MG TAB TAKE ONE TABLET BY MOUTH ONCE DAILY ACTIVE NEEDED Indication: FOR ANXIETY 6) MAGNESIUM OXIDE 420MG TAB TAKE ONE TABLET BY MOUTH ONCE ACTIVE DAILY Indication: FOR MAGNESIUM SUPPLEMENTATION 7) OXYBUTYNIN CHLORIDE 15MG SA TAB TAKE ONE TABLET BY MOUTH ACTIVE ONCE DAILY FOR BLADDER INSTABILITY Indication: FOR FREQUENT URINATION 8) ZOLPIDEM TARTRATE 10MG TAB TAKE ONE TABLET BY MOUTH AT ACTIVE BEDTIME Indication: FOR SLEEP Inactive Outpatient Medications Status 1) DOCUSATE NA 50MG/SENNOSIDES 8.6MG TAB TAKE 2 TABLETS BY MOUTH ONCE DAILY Indication: FOR CONSTIPATION 9 Total Medications REVIEW OF SYMPTOMS POSITIVE FOR: NEGATIVE FOR: [...] - - - - - - B/P: 131/73 (04/15/2024 10:10) pulse: 68 (04/15/2024 10:10) resp: 16 (04/15/2024 10:10) temp: 97.7 F [36.5 C] (04/15/2024 10:10) Ht: 69 in [175.3 cm] (10/15/2023 09:00) Wgt: 160 lb [72.57 kg] (04/15/2024 10:10) BMI: BMI: 23.7 Exam: - - - - - - - NAD RECENT LABS HEMOGLOBIN A1C TREND Collection DT Spec HGBA1c 04/01/2024 09:16 BLOOD 6.1 H 09/30/2023 08:32 BLOOD 5.5 04/02/2023 08:20 BLOOD 5.9 H 11/21/2022 08:27 BLOOD 5.7 H 11/27/2021 08:37 BLOOD 5.9 H Collection DT Spec GLUCOSE BUN CREATIN Sodium K+/Pot CL CO2 04/01/2024 09:16 SERUM 136 H 15 0.80 142 4.1 105 27 09/30/2023 08:32 SERUM 107 H 16 0.83 140 4.6 106 26 04/02/2023 08:20 SERUM 124 H 11 0.84 142 4.4 107 27 11/21/2022 08:27 SERUM 115 H 13 0.84 141 4.4 105 26 04/25/2022 10:17 SERUM 127 H 11 0.84 140 4.1 105 27 LIPID PANEL TREND Collection DT Spec CHOL HDL CHO/HDL LDL-c TRIG 04/01/2024 09:16 SERUM 239 H 82 H 2.9 144 H 63 09/30/2023 08:32 SERUM 183 65 H 2.8 107 57 04/02/2023 08:20 SERUM 202 H 62 H 3.3 127 63 11/21/2022 08:27 SERUM 185 67 H 2.8 106 58 11/27/2021 08:37 SERUM 214 H 71 H 3.0 131 H 61 PSA Collection DT Specimen Test Name Result Units Ref Range 04/01/2024 09:16 SERUM PSA 3.98 ng/mL 0.00 - 4.00 09/30/2023 08:32 SERUM PSA 2.77 ng/mL 0.00 - 4.00 04/02/2023 08:20 SERUM PSA 3.55 ng/mL 0.00 - 4.00 11/21/2022 08:27 SERUM PSA 3.47 ng/mL 0.00 - 4.00 04/25/2022 10:17 SERUM PSA 3.77 ng/mL 0.00 - 4.00 ASSESSMENT AND PLAN Active problems - Computerized Problem List is the source for the followin. Liver cyst due for rpt US 12/2023 left hepatic lobe incompletely septated 2.7 cm complex cyst 2. Exposure to potentially hazardous substance 3. Spinal stenosis in cervical region 4. Thyroid nodule left thyroid nodule, stable over years 5. Elevated PSA 6. Esophageal stricture s/p balloon dilatation in March 2017 7. Posttraumatic stress disorder (SNOMED CT 05541265) 8. Meralgia paresthetica ON NERVE CONDUCTION STUDY AT [facility] 9. Drusen 10. Type 2 diabetes mellitus (SNOMED CT 78307190)- uses glyburide 1.25 mg tiny amount only as needed 11. Hyperlipidemia (SNOMED CT 59800605) 12. Hearing Loss HEALTH MAINTENANCE Colonoscopy- Dr. Dao- done 18 mo ago Abdominal Aortic Aneurysm Screening (due at age 65 if smoker/prev smoker) - Prostate screening - sees urology Tetanus: due every 10 years Pneumonia Vacccine: Flu Vaccine: due yearly Covid Vaccine: due yearly FOLLOW UP f/u in 6 mo. wants to do psa in 3 mo- ordered for July VISIT TYPE:a MODERATE complexity visit where 30 minutes was spent in direct patient care, review of records and documentation. /kaitlin OVERTON D.O. PHYSICIAN Signed: 04/15/2024 10:45 04/28/2024 ADDENDUM STATUS: COMPLETED seen by DEX Kirk on 04/21/24- ARIANE Esparza- diagnosis- red scrotal syndrome. given RX doxycycline monohydrate 100 mg capsule- BID #60 with 2 RF /kaitlin OVERTON D.O. 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 At some point may need prism increased but not indicated at this time. 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 reading issues - not related to diplopia or binocular vision issue. Reading issues persist with one eye occluded, with oculomotor support (elementary reading specialist) and with large print (not acuity issue). Seems to be a cognitive issue not visual. Alert to PCP for further work up. also mentions worsening memory issues. 3. 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 Order new NVO without prism - may assist somewhat with reading issues, although other non-visual reading issues likely present (See above) wll address at next apt- likely eval with neuropsych testing /zoë/ ESTEFANY OVERTON D.O. PHYSICIAN Signed: 08/07/2024 16:12 ESTEFANY OVERTON [facility] Apr 15, 2024 10:14 AM PREVENTIVE MEDICINE NURSING NOTE: LOCAL TITLE: CLINICAL REMINDERS/NURSING STANDARD TITLE: PREVENTIVE MEDICINE NURSING NOTE DATE OF NOTE: APR 15, 2024@10:14 ENTRY DATE: APR 15, 2024@10:14:47 AUTHOR: MADELINE DAO EXP COSIGNER: URGENCY: STATUS: COMPLETED Advance Directive Screen MH AD: Patient does not have a completed advance directive on file at any facility, [place] or outside. S/he is not interested in completing one at this time. The patient received education about Advance Directives and written notification of his/her rights. Homelessness/Food Insecurity Screen: In the past 2 months, have you been living in stable housing that you own, rent, or stay in as part of a household? Yes - Living in stable housing. Are you worried or concerned that in the next 2 months you may NOT have stable housing that you own, rent, or stay in as part of a household? No - Not worried about housing near future The reports the following: Within the past 12 months, you worried whether your food would run out before you got money to buy more. Never true Within the past 12 months, the food you bought just didn't last and you didn't have money to get more. Never true Falls & Incontinence Screen: Falls Screen: 4. No falls within the past year. Incontinence Screen YES - Incontinence is a problem for this patient. Is urinary incontinence NEW for this patient? NO - Incontinence is NOT a new problem. What is the current treatment? protecitve undergarments COVID-19 Immunization: Refused Moderna Monovalent COVID-19 vaccine Immunization: COVID-19 (MODERNA), MRNA, LNP-S, PF, 50 MCG/0.5 ML (AGES 12+ YEARS) Refusal Reason: PATIENT DECISION Patient refuses all immunization(s) in the COVID-19 group Date Documented: 04/15/24 10:15 RSV Immunization: Record prior RSV Vaccine (historical) Vaccine given previously - no written/electronic documentation available The patient was instructed to bring a copy of their RSV vaccine information to their next appointment so that this can be accurately recorded in their [place] medical record. Sexual Orientation: The patient thinks of their sexual orientation as: Straight or Heterosexual /zoë/ MADELINE DAO LPN License Practical Nurse Signed: 04/15/2024 10:15 MADELINE DAO [facility]
--- OUTSIDE RECORDS SUMMARY | 2024-04-15 06:00 | XMS_ITS ---
Author Name [facility] [place] Address [address] [place] [address] Care Team Providers Care Grinder Operator External Tool Name Role Phone BECKY OVERTON Primary Care Provider Unavailabl e Insurance [...] to Policy Flores GHISLAINE BCBS [facility] PREFERRED PROVIDER ORGANIZAT ION (PPO) BASIC FAMIL Y Feb 23, 2001 [id number] [phone] Priya BLAND SPOUSE ANTHEM BCBS FEP PREFERRED PROVIDER ORGANIZAT ION (PPO) FEP BASIC FAMIL Y Feb 23, 2001 [id number] EDWINA SPOUSE ANTHALY FEP PREFERRED PROVIDER ORGANIZAT ION (PPO) FEP BASIC FAMIL Y Feb 23, 2001 112 [id number] Priya BLAND SPOUSE BCBS [facility] PREFERRED PROVIDER ORGANIZAT ION (PPO) BASIC FAMIL Y Feb 23, 2001 [id number] Priya BLAND SPOU[place]BS OF [place] FEDERAL PREFERRED PROVIDER ORGANIZAT ION (PPO) BASIC FAMIL Y Feb 23, 2001 [id number] EDWINAPriya SANTOS SPOUSE CAREMARK FEP ([id number]) PRESCRIPT ION FEP RX Feb 23, 2001 [id number] EDWINAPriya SANTOS SPOUSE [place] FEP BCBS PRESCRIPT ION CAREM ARK FEPRX Feb 11, 2010 [id number] [phone] Priya BLAND SPOUSE [place]ARK-F EP BCBS PRESCRIPT ION BCBS FEP PLAN Feb 11, 2010 [id number] EDWINAPriya SANTOS SPOUSE MEDICARE (WN) MEDICARE () PART B Feb 11, 2015 PART B [id number] [facility] [place],F RANK PATIENT MEDICARE (WN) MEDICARE () PART B Feb 11, 2015 PART B [id number] [facility] [place],F RANK PATIENT MEDICARE (WNR) MEDICARE () PART B Feb 11, 2015 PART B [id number] [facility] [phone] [place],F RANK PATIENT MEDICARE (WN) MEDICARE () PART B Feb 11, 2015 PART B [id number] [facility] [phone] [place],F RANK PATIENT MEDICARE (WNR) MEDICARE () PART B Feb 11, 2015 PART B [id number] [facility] [place],F RANK PATIENT MEDICARE (WNR) MEDICARE () PART A Apr 11, 2012 PART A [id number] [facility] [phone] [place],F RANK PATIENT MEDICARE (WNR) MEDICARE () PART A Apr 11, 2012 PART A [id number] [place],F RANK PATIENT MEDICARE (WNR) MEDICARE () PART A Apr 11, 2012 PART A [id number] [facility] [place],F RANK PATIENT MEDICARE (WNR) MEDICARE () PART A Apr 11, 2012 PART A [id number] [facility] Sae BLAND PATIENT MEDICARE (WNR) MEDICARE (M) PART A Apr 11, 2012 PART A [id number] [facility] Sae BLAND PATIENT Selected Encounter This section includes the information on record at [place] for the Encounter. Date/Time Encounter Type Encounter Description Reason Pro vider Source Apr 15, 2024 10:00 AM Outpatient Encounter PRIMARY CARE/MEDICINE IHE Encounter Template Text not used by [place] Plan of Treatment: Future Appointments (+ 6 months) and Future Tests (+/- 45 days) The Plan of Treatment section includes future care activities for the patient from all [place] treatmentfacilities. This section includes future appointments and future orders which are active, pending or scheduled. Future Appointments This section includes appointments that were scheduled to occur 6 months from the date of the Encounter, up to a maximum of 20 appointments. The data comes from all [place] treatment facilities. Appointment Date/Time Appointment Type Appointme nt Facility Name May 26, 2024 08:00 AM AMBULATORY - MEDICINE [place] [facility] [place] [facility] May 27, 2024 02:00 PM AMBULATORY - MEDICINE [place] [facility] [place] [facility] May 27, 2024 02:15 PM AMBULATORY - MEDICINE [place] [facility] [place] [facility] May 27, 2024 02:30 PM AMBULATORY - MEDICINE [place] [facility] [place] [facility] Aug 07, 2024 10:30 AM AMBULATORY - NONE [place] [facility] [place] [facility] Aug 25, 2024 10:00 AM AMBULATORY - MEDICINE [place] [facility] [place] [facility] Oct 05, 2024 01:30 PM AMBULATORY - MEDICINE [place] [facility] [place] [facility] Oct 09, 2024 02:00 PM AMBULATORY - REHAB MEDICIN E [place] [facility] [place] [facility] Lab Results: +/- 30 days of the encounter This section includes the Chemistry and Hematology Lab Results on record with [place] for the patient. Radiology Reports and Pathology Reports are provided separately, in subsequent sections. Lab Results This section contains the Chemistry/Hematology Results that were resulted 30 days before or 30 daysafter the date of the Encounter. Date/Time Source Result Type Result - Unit Interpretation Reference Range Specimen Type Comment Apr 01, 2024 09:16 AM [facility] LIPID PANEL FASTING SERUM Specimen Type: SERUM No comment entered. Ordering Provider: BECKY OVERTON Report Released Date/Time: Oct 15, 2023 09:38 AM Reporting Lab: [facility] [address] [facility] [address] Performing Lab: [address] [address] CHOLESTEROL 239 mg/dL H TRIGLYCERIDE 63 mg/dL 0-150 LDL calculated 144 mg/dL H 0-129 CHOL/HDL 2.9 HDL CHOLESTEROL 82 mg/dL H 40-60 Apr 01, 2024 09:16 AM [facility] BASIC METABOLIC PANEL (fasting) SERUM Specime n Type: SERUM No comment entered. Ordering Provider: BECKY OVERTON Report Released Date/Time: Oct 15, 2023 09:38 AM Reporting Lab: [address] [address] Performing Lab: [address] [address] UREA NITROGEN 15 mg/dL 7-25 GLUCOSE 136 mg/dL H 65-100 SODIUM 142 mmol/L 135-145 POTASSIUM 4.1 mmol/L 3.5-5.0 CHLORIDE 105 mmol/L 100-110 CO2 27 meq/L 20-30 CALCIUM 9.6 mg/dL 8.5-10.2 CREATININE, Serum 0.80 mg/dL 0.50-1.40 eGFR(CKD-EPI 2020) >90 mL/min >60 Apr 01, 2024 09:16 AM [facility] HEMOGLOBIN A1C PANEL BLOOD Specimen Type: BLO OD Comment: Values obtained from A1C measurements can vary. For atypical A1C assays, a reported value of 7.0 could actually be between 6.72 and 7.28 if measured by a reference method. A reported value of 9.0 could actually be between 8.73 and 9.27. Ref: [email or web address] Ordering Provider: BECKY OVERTON Report Released Date/Time: Oct 15, 2023 09:43 AM Reporting Lab: [facility] [address] [facility] [address] Performing Lab: [facility] [place] [facility] [address] [facility] [address] HEMOGLOBIN A1C 6.1 H 4.0-5.6 Apr 01, 2024 09:16 AM [facility] [place] [facility] MICROALBUMIN CREATININE RATIO PANEL URINE Spe cimen Type: URINE No comment entered. Ordering Provider: BECKY OVERTON Report Released Date/Time: Oct 15, 2023 09:43 AM Reporting Lab: [facility] [place] [facility] [address] [facility] [address] Performing Lab: [facility] [place] [facility] [address] [facility] [address] MICROALBUMIN/CREATININE RATIO 6.0 mg/g 0 -29.9 MICROALBUMIN,QUANTITATIVE 1.3 mg/dL RR U NAVAIL CREATININE URINE 217.54 mg/dL Apr 01, 2024 09:16 AM [facility] PSA SERUM Specimen Type: SERUM No comment entered. Ordering Provider: BECKY OVERTON Report Released Date/Time: Mar 19, 2024 08:20 AM Reporting Lab: [facility] [place] [facility] [address] [facility] [address] Performing Lab: [facility] [place] [facility] [address] [facility] [address] PSA 3.98 ng/mL 0.00-4.00 Vital Signs: All taken on the encounter date This section contains inpatient and outpatient Vital Signs collected on the date of the Encounter. Date/Time Temperature Pulse Blood Pressure Respiratory Rate SP02 Pain Height Weight Body Mass Index Source Apr 15, 2024 10:10 AM 97.7 68 131/73 16 98 0 160 24 [facility] Social History: Smoking Status (Most current) and Tobacco Use (All prior to encounter date) This section includes the most current, and the historical, smoking and tobacco- related health factors from the [place] facility where the Encounter took place. Current Smoking Status This section includes the most current smoking, or tobacco-related health factor, from the [place] facility where the Encounter took place. Date/Time Current Smoking Status Comment Facil ity Dec 11, 2023 11:30 AM VA-TOBACCO QUIT 15 YRS OR MORE [place] [facility] [place] [facility] Tobacco Use History This section includes a history of the smoking, or tobacco-related health factors, that were collected on or before the date of the Encounter. The data comes from the [place] facility where the Encounter took place. Date/Time Smoking Status/Tobac co Use Comment [facility] Dec 11, 2023 11:30 AM VA-TOBACCO QUIT 15 YRS OR MORE [facility] [place] [facility] Dec 18, 2022 10:00 AM VA-TOBACCO FORMER USER [facility] [place] [facility] Dec 18, 2022 10:00 AM VA-TOBACCO QUIT 15 YRS OR MORE [facility] [place] [facility] Dec 06, 2021 09:30 AM VA-TOBACCO FORMER USER [facility] [place] [facility] Dec 06, 2021 09:30 AM VA-TOBACCO QUIT 15 YRS OR MORE [place] [facility] [place] [facility] Nov 03, 2020 03:30 PM VA-TOBACCO FORMER USER [facility] [place] [facility] Nov 03, 2020 03:30 PM VA-TOBACCO QUIT 15 YRS OR MORE [facility] [place] [facility] Dec 04, 2019 10:30 AM VA-TOBACCO FORMER USER [facility] [place] [facility] Dec 04, 2019 10:30 AM VA-TOBACCO QUIT 15 YRS OR MORE [place] [facility] [place] [facility] May 30, 2018 09:32 AM VA-TOBACCO FORMER USER [facility] [place] [facility] May 30, 2018 09:32 AM VA-TOBACCO QUIT 15 YRS OR MORE [facility] [place] [facility] Nov 29, 2017 09:01 AM VA-TOBACCO FORMER USER [facility] [place] [facility] Nov 29, 2017 09:01 AM VA-TOBACCO QUIT 15 YRS OR MORE [facility] [place] [facility] Dec 13, 2016 08:30 AM LIFETIME NON-TOBACCO USER [facility] [place] [facility] Jul 13, 2015 09:13 PM QUIT TOBACCO USE > 7 YEARS AGO . [facility] [place] [facility] Feb 15, 2009 09:19 AM QUIT TOBACCO USE > 7 YEARS AGO quit when he left service in 1968. [facility] Encounter Notes: All associated encounter notes This section contains the clinical notes associated to the Encounter. Date/Time Encounter Note(s) Provider Source Mar 19, 2024 04:14 PM ACCOUNTING OF DISC LOSURES NOTE: LOCAL TITLE: STATE PRESCRIPTION DRUG MONITORING PROGRAM STANDARD TITLE: ACCOUNTING OF DISCLOSURES NOTE DATE OF NOTE: MAR 19, 2024@16:14:48 ENTRY DATE: MAR 19, 2024@16:14:48 AUTHOR: BECKY OVERTON EXP COSIGNER: URGENCY: STATUS: COMPLETED This PDMP query was submitted by Becky Overton. The clinical justification for this PDMP query is to review controlled substances prescribed outside of the [facility], and any additional information that may become available, as an important component of standard clinical care, and in accordance with [facility] policy. Patient information was shared with the PDMP Appriss [place]. No prescription(s) for controlled substances outside the [facility] were found in the last 90 days. /zoë/ BECKY OVERTON D.O. PHYSICIAN Signed: 03/19/2024 16:15 BECKY OVERTON [facility]
--- OUTSIDE RECORDS SUMMARY | 2024-05-27 10:00 | XMS_ITS ---
Author Name [facility] [place] Address [address] [place] [address] Care Team Providers Care Lighting Engineering Technician Name Role Phone ESTEFANY OVERTON Primary Care [...] Patient's Relationship to Policy Flores GHISLAINE BCBS [facility] PREFERRED PROVIDER ORGANIZAT ION (PPO) BASIC FAMIL Y Feb [birth year], 2001 [id number] [phone] Priya BLAND SPOUSE ANTHEM BCBS FEP PREFERRED PROVIDER ORGANIZAT ION (PPO) FEP BASIC FAMIL Y Feb 23, 2001 [id number] EDWINA SPOUSE ANTHEM FEP PREFERRED PROVIDER ORGANIZAT ION (PPO) FEP BASIC FAMIL Y Feb 23, 2001 [id number] Priya BLAND SPOUSE BCBS [facility] PREFERRED PROVIDER ORGANIZAT ION (PPO) BASIC FAMIL Y Feb 23, 2001 [id number] Priya BLAND SPOUSE [place] FED[place]AL PREFERRED PROVIDER ORGANIZAT ION (PPO) BASIC FAMIL Y Feb 23, 2001 [id number] EDWINAPriya SANTOS SPOUSE [employer] FEP ([id number]) PRESCRIPT ION FEP RX Feb 23, 2001 [id number] EDWINAPriya SANTOS SPOUSE [place] FEP BCBS PRESCRIPT ION CAREM ARK FEPRX Feb 11, 2010 [id number] [phone] Priya BLAND SPOUSE [place]-F EP BCBS PRESCRIPT ION BCBS FEP PLAN Feb 11, 2010 [id number] EDWINAPriya SANTOS SPOUSE MEDICARE (WN) MEDICARE () PART B Feb 11, 2015 PART B [id number] [facility] [phone] [place],F RANK PATIENT MEDICARE (WN) MEDICARE () PART B Feb 11, 2015 PART B [id number] [facility] [place],F RANK PATIENT MEDICARE (WNR) MEDICARE () PART B Feb 11, 2015 PART B [id number] [facility] [place],F RANK PATIENT MEDICARE (WNR) MEDICARE () PART B Feb 11, 2015 PART B [id number] [facility] [place],F RANK PATIENT MEDICARE (WNR) MEDICARE () PART B Feb 11, 2015 [id number] [id number] [phone] [place],F RANK PATIENT MEDICARE (WNR) MEDICARE () PART A Apr 11, 2012 PART A [id number] [facility] [place],F RANK PATIENT MEDICARE (WNR) MEDICARE () PART A Apr 11, 2012 PART A [id number] [facility] [place],F RANK PATIENT MEDICARE (WNR) MEDICARE () PART A Apr 11, 2012 PART A [id number] [facility] [phone] [place],F RANK PATIENT MEDICARE (WNR) MEDICARE () PART A Apr 11, 2012 PART A [id number] [facility] Sae BLAND PATIENT MEDICARE (WNR) MEDICARE (M) PART A Apr 11, 2012 PART A [id number] [facility] Sae BLAND PATIENT Selected Encounter This section includes the information on record at [place] for the Encounter. Date/Time Encounter Type Encounter Description Reason Provider Source May 27, 2024 02:00 PM EXTENDED VISUAL FIELD XM OPTOMETRY ICD-10-CM H40.013 Open angle with borderline findings, low risk, bilateral VERNON,LISA J IHE Encounter Template Text not used by [place] Assessments - Encounter Diagnoses This section includes the primary and secondary diagnoses documented for the Encounter. Date/Time Primary/Secondary Diagnosis Diagnosis Name Provider Source Aug 07, 2024 10:46 AM PRIMARY Open angle with borderline findings, low risk, bilateral VERNON,LISA Davis [place] [facility] [place] [facility] Plan of Treatment: Future Appointments (+ [...] Date/Time Appointment Type Appointme nt Facility Name Aug 07, 2024 10:30 AM AMBULATORY - NONE [place] [facility] [place] [facility] Aug 25, 2024 10:00 AM AM[place]ULATORY [place]IC[place] [facility] [place] [facility] Oct 05, 2024 01:30 PM AMBULATORY [place]ICINE [place] [facility] [place] [facility] Oct 09, 2024 02:00 PM AMBULATORY - REHAB MEDICIN E [facility] [place] [facility] Oct 23, 2024 10:30 AM AMBULATORY - REHAB MEDICIN E [facility] [place] [facility] Nov 04, 2024 01:30 PM AMBULATORY - REHAB MEDICIN E [facility] [place] [facility] Nov 09, 2024 02:00 PM AMBULATORY - REHAB MEDICIN E [place] [facility] [place] [facility] Nov 11, 2024 12:30 PM AMBULATORY - NONE [facility] Nov 11, 2024 12:30 PM AMBULATORY - PSYCHIATRY [place] [facility] [place] [facility] Nov 25, 2024 03:00 PM AM[place]ULATORY [place]ICINE [place] [facility] [place] [facility] Social History: Smoking Status (Most current) [...] took place. Date/Time Current Smoking Status Comment [facility] Dec 11, 2023 11:30 AM VA-TOBACCO FORMER USER [place] [facility] [place] [facility] Tobacco Use History This section includes a history of the smoking, or tobacco-related health factors, that were collected on or before the date of the Encounter. The data comes from the [place] facility where the Encounter took place. Date/Time Smoking Status/Tobac co Use Comment [facility] Dec 11, 2023 11:30 AM VA-TOBACCO QUIT 15 YRS OR MORE [facility] [place] [facility] Dec 18, 2022 10:00 AM VA-TOBACCO FORMER USER [facility] [place] [facility] Dec 18, 2022 10:00 AM VA-TOBACCO QUIT 15 YRS OR MORE [facility] [place] [facility] Dec 06, 2021 09:30 AM VA-TOBACCO FORMER USER [facility] [place] [facility] Dec 06, 2021 09:30 AM VA-TOBACCO QUIT 15 YRS OR MORE [facility] [place] [facility] Nov 03, 2020 03:30 PM VA-TOBACCO FORMER USER [facility] [place] [facility] Nov 03, 2020 03:30 PM VA-TOBACCO QUIT 15 YRS OR MORE [facility] [place] [facility] Dec 04, 2019 10:30 AM VA-TOBACCO FORMER USER [facility] [place] [facility] Dec 04, 2019 10:30 AM VA-TOBACCO QUIT 15 YRS OR MORE [facility] [place] [facility] May 30, 2018 09:32 AM VA-TOBACCO FORMER USER [facility] [place] [facility] May 30, 2018 09:32 AM VA-TOBACCO QUIT 15 YRS OR MORE [place] [facility] [facility] Nov 29, 2017 09:01 AM VA-TOBACCO FORMER USER [place] [facility] [facility] Nov 29, 2017 09:01 AM VA-TOBACCO QUIT 15 YRS OR MORE [place] [facility] [place] [facility] Dec 13, 2016 08:30 AM LIFETIME NON-TOBACCO USER [facility] [place] [facility] Jul 13, 2015 09:13 PM QUIT TOBACCO USE > 7 YEARS AGO . [facility] [place] [facility] Feb 15, 2009 09:19 AM QUIT TOBACCO USE > 7 YEARS AGO quit when he left service in 1968. [facility] [place] [facility] Encounter Notes: All associated encounter notes This section contains the clinical notes associated to the Encounter. 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 Visual field of left eye unreliable with 6/12 fixation losses, 4% FP errors and 8% FN errors, GHT ONL, VFI 89%, visual field shows depression greatest inferior nasal without correlation on RNFL OCT or fundus exam, absolute edge point defects nasally likely lens artifact. P: Keep follow-up as scheduled. Ed re today's findings. repeated back the plan and education. 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
--- OUTSIDE RECORDS SUMMARY | 2024-05-27 10:15 | XMS_ITS | Encounter Summary ---
Author Name [facility] [facility] [place] [facility] [place] [facility] [place] Address [address] [place] [id number] Care Team Providers Care Trencher Driver Name Role Phone ESTEFANY OVERTON Primary Care [...] Name Patient's Relationship to Policy Flores [facility] ORGANIZAT ION (PPO) BASIC FAMIL Y Feb [birth year], 1999 [id number] [phone] Priya BLAND SPOUSE GHISLAINE STORM [facility] PREFERRED PROVIDER ORGANIZAT ION (PPO) FEP BASIC FAMIL Y Feb 23, 2001 [id number] [phone] [place] [employer] FEP PREFERRED PROVIDER ORGANIZAT ION (PPO) FEP BASIC FAMIL Y Feb 23, 2001 [id number] [phone] Priya BLAND SPOUSE [employer] [place] FEP PREFERRED PROVIDER ORGANIZAT ION (PPO) BASIC FAMIL Y Feb 23, 2001 [id number] Priya BLAND SANT[place] SPOUSE [employer] [place] PREFERRED PROVIDER ORGANIZAT ION (PPO) BASIC FAMIL Y Feb 23, 2001 [id number] EDWINAPriya SANTOS SPOUSE [employer] FEP ([id number]) PRESCRIPT ION FEP RX Feb 23, 2001 [id number] [phone] EDWINAPriya SANTOS SPOUSE [employer] FEP BCBS PRESCRIPT ION CAREM ARK FEPRX Feb 11, 2010 [id number] Priya BLAND SPOUSE [employer]-F EP BCBS PRESCRIPT ION BCBS FEP PLAN Feb 11, 2010 [id number] EDWINAPriya SANTOS SPOUSE MEDICARE (WN) MEDICARE () PART B Feb 11, 2015 PART B [id number] [facility] [place] RANK PATIENT MEDICARE (WN) MEDICARE () PART B Feb 11, 2015 PART B [id number] [facility] [place],F RANK PATIENT MEDICARE (WN) MEDICARE () PART B Feb 11, 2015 PART B [id number] [facility] [place],F RANK PATIENT MEDICARE (WN) MEDICARE () PART B Feb 11, 2015 PART B [id number] [facility] [place],F RANK PATIENT MEDICARE (WNR) MEDICARE () PART B Feb 11, 2015 [place] B [id number] [id number] [place],F RANK PATIENT MEDICARE (WNR) MEDICARE () PART A Apr 11, 2012 PART A [id number] [facility] [place],F RANK PATIENT MEDICARE (WNR) MEDICARE () PART A Apr 11, 2012 PART A [id number] [facility] [place],F RANK PATIENT MEDICARE (WNR) MEDICARE () PART A Apr 11, 2012 PART A [id number] [facility] [place],F RANK PATIENT MEDICARE (WNR) MEDICARE () PART A Apr 11, 2012 PART A [id number] [facility] Sae BLAND RANK PATIENT MEDICARE (WNR) MEDICARE (M) PART A Apr 11, 2012 PART A [id number] Sae BLAND RANK PATIENT Selected Encounter This section includes the information on record at [place] for the Encounter. Date/Time Encounter Type Encounter Description Reason Provider Source May 27, 2024 02:15 PM CPTRZ OPH DX IMG PST SGM RTA OPTOMETRY ICD-10-CM H40.013 Open angle with borderline findings, low risk, bilateral VERNON,LSIA J IHE Encounter Template Text not used by [place] Assessments - Encounter Diagnoses This section includes the primary and secondary diagnoses documented for the Encounter. Date/Time Primary/Secondary Diagnosis Diagnosis Name Provider Source Aug 07, 2024 10:45 AM PRIMARY Open angle with borderline findings, low risk, bilateral VERNON,LISA J [place] [facility] [place] [facility] Aug 07, 2024 10:45 AM SECONDARY Drusen (degenerative) of macula, bilateral VERNON,LISA J [facility] [place] [facility] Plan of Treatment: Future Appointments (+ 6 months) and Future Tests (+/- 45 days) The Plan of Treatment section includes future care activities for the patient from all [place] [facility]. This section includes future appointments and future orders which are active, pending or scheduled. Future Appointments This section includes appointments that were scheduled to occur 6 months from the date of the Encounter, up to a maximum of 20 appointments. The data comes from all [place] treatment facilities. Appointment Date/Time Appointment Type Appointme nt Facility Name Aug 07, 2024 10:30 AM AMBULATORY - NONE [facility] [place] [facility] Aug 25, 2024 10:00 AM AMBULATORY - MEDICINE [facility] [place] [facility] Oct 05, 2024 01:30 PM AMBULATORY - MEDICINE [facility] [place] [facility] Oct 09, 2024 02:00 PM AMBULATORY - REHAB MEDICIN E [facility] [place] [facility] Oct 23, 2024 10:30 AM AMBULATORY - REHAB MEDICIN E [facility] [place] [facility] Nov 04, 2024 01:30 PM AMBULATORY - REHAB MEDICIN E [facility] [place] [facility] Nov 09, 2024 02:00 PM AMBULATORY - REHAB MEDICIN E [facility] [place] [facility] Nov 11, 2024 12:30 PM AMBULATORY - NONE [facility] Nov 11, 2024 12:30 PM AMBULATORY - PSYCHIATRY [facility] [place] [facility] Nov 25, 2024 03:00 PM AMBULATORY - MEDICINE [place] [facility] [place] [facility] Social History: Smoking Status (Most current) and Tobacco Use (All prior to encounter date) This section includes the most current, and the historical, smoking and tobacco- related health factors from the [place] facility where the Encounter took place. Current Smoking Status This section includes the most current smoking, or tobacco-related health factor, from the [place] facility where the Encounter took place. Date/Time Current Smoking Status Comment Facil it Dec 11, 2023 11:30 AM VA-TOBACCO QUIT 15 YRS OR MORE [facility] [place] [facility] Tobacco Use History This section includes a history of the smoking, or tobacco-related health factors, that were collected on or before the date of the Encounter. The data comes from the [place] facility where the Encounter took place. Date/Time Smoking Status/Tobac co Use Comment Facility Dec 11, 2023 11:30 AM VA-TOBACCO QUIT 15 YRS OR MORE [facility] [place] [facility] Dec 18, 2022 10:00 AM VA-TOBACCO FORMER USER [facility] [place] [facility] Dec 18, 2022 10:00 AM VA-TOBACCO QUIT 15 YRS OR MORE [facility] [place] [facility] Dec 06, 2021 09:30 AM VA-TOBACCO FORMER USER [facility] [place] [facility] Dec 06, 2021 09:30 AM VA-TOBACCO QUIT 15 YRS OR MORE [facility] [place] [facility] Nov 03, 2020 03:30 PM VA-TOBACCO FORMER USER [facility] [place] [facility] Nov 03, 2020 03:30 PM VA-TOBACCO QUIT 15 YRS OR MORE [facility] [place] [facility] Dec 04, 2019 10:30 AM VA-TOBACCO FORMER USER [facility] [place] [facility] Dec 04, 2019 10:30 AM VA-TOBACCO QUIT 15 YRS OR MORE [facility] [place] [facility] May 30, 2018 09:32 AM VA-TOBACCO FORMER USER [facility] [place] [facility] May 30, 2018 09:32 AM VA-TOBACCO QUIT 15 YRS OR MORE [facility] [place] [facility] Nov 29, 2017 09:01 AM VA-TOBACCO FORMER USER [facility] [place] [facility] Nov 29, 2017 09:01 AM VA-TOBACCO QUIT 15 YRS OR MORE [facility] [place] [facility] Dec 13, 2016 08:30 AM LIFETIME NON-TOBACCO USER [facility] [place] [facility] Jul 13, 2015 09:13 PM QUIT TOBACCO USE > 7 YEARS AGO . [facility] [place] [facility] Feb 15, 2009 09:19 AM QUIT TOBACCO USE > 7 YEARS AGO quit when he left service in 1968[facility] Encounter Notes: All associated encounter notes This section contains the clinical notes associated to the Encounter. Date/Time Encounter Note(s) Provider Source May 27, 2024 04:05 PM OPTOMETRY CONSULT: LOCAL TITLE: CONSULT REPORT/OPTOMETRY OCT STANDARD TITLE: OPTOMETRY CONSULT DATE OF NOTE: MAY 27, 2024@16:05 ENTRY DATE: MAY 27, 2024@16:05:36 AUTHOR: LISA VERNON EXP COSIGNER: URGENCY: STATUS: COMPLETED S: Review of RNFL OCT of patient considered low-risk open angle glaucoma OU suspect secondary to moderate cupping O: RNFL OCT ran by construction technician A: OCT of right eye shows all quadrants WNL, disc area of 1.80, average CDR of 0.53 and vertical CDR of 0.50, average RNFL thickness of 89 m. OCT of left eye shows all quadrants WNL, disc area of 1.76, average CDR of 0.49 and vertical CDR of 0.55, average RNFL thickness of 90 m. RNFL symmetry 82%. P: Keep follow-up as scheduled, ed re today's findings. repeated back the plan and education. Pachymetry: OD: 537 OS: 535 S: Review of macular OCT of patient with trace drusen and subjective visual change O: Macular OCT ran by construction technician A: OCT of right eye shows normal thickness with normal foveal contour and macular architecture. OCT of left eye shows normal thickness with normal foveal contour and macular architecture. P: Keep follow-up as scheduled, ed re today's findings. repeated back the plan and education. /zoë/ LISA VERNON, MALIK TWENTY ONE DEALER Signed: 05/27/2024 16:32 LISA VERNON [facility]
--- OUTSIDE RECORDS SUMMARY | 2024-05-27 10:30 | XMS_ITS ---
Author Name [facility] [place] [facility] [place] Address [address] [place] [address] Care Team Providers Care Senior Account Manager Name Role Phone ESTEFANY OVERTON Primary [...] Name Patient's Relationship to Policy Flores GHISLAINE [facility] PREFERRED PROVIDER ORGANIZAT ION (PPO) BASIC FAMIL Y Feb 23, 2001 [id number] [phone] Priya BLAND SPOUSE ANTHEM BCBS FEP PREFERRED PROVIDER ORGANIZAT ION (PPO) FEP BASIC FAMIL Y Feb 23, 2001 [id number] EDWINA SPOUSE GHISLAINE FEP PREFERRED PROVIDER ORGANIZAT ION (PPO) FEP BASIC FAMIL Y Feb 23, 2001 112 [id number] [phone] Priya BLAND SPOUSE BCBS [place] FEP PREFERRED PROVIDER ORGANIZAT ION (PPO) BASIC FAMIL Y Feb 23, 2001 [id number] Priya BLAND SPOUSE [place] FED[place] PREFERRED PROVIDER ORGANIZAT ION (PPO) BASIC FAMIL Y Feb 23, 2001 [id number] [phone] Priya BLAND SPOUSE [place] FEP ([id number]) PRESCRIPT ION FEP RX Feb 23, 2001 [id number] [phone] Priya BLAND SPOUSE [place] FEP BCBS PRESCRIPT ION CAREM ARK FEPRX Feb 11, 2010 [id number] Priya BLAND SPOUSE [place]ARK-F EP BCBS PRESCRIPT ION BCBS FEP PLAN Feb 11, 2010 [id number] Priya BLAND SPOUSE MEDICARE (WNR) MEDICARE () PART B Feb 11, 2015 PART B [id number] [facility] [phone] MATYOKA,F RANK PATIENT MEDICARE (WN) MEDICARE () PART B Feb 11, 2015 PART B [id number] [facility] MATYOKA,F RANK PATIENT MEDICARE (WNR) MEDICARE () PART B Feb 11, 2015 PART B [id number] [facility] MATYOKA,F RANK PATIENT MEDICARE (WN) MEDICARE () PART B Feb 11, 2015 PART B [id number] [facility] MATYOKA,F RANK PATIENT MEDICARE (WNR) MEDICARE () PART B Feb 11, 2015 PART B [id number] [id number] [phone] MATYOKA,F RANK PATIENT MEDICARE (WNR) MEDICARE () PART A Apr 11, 2012 PART A [id number] MATY[place]A,F RANK PATIENT MEDICARE (WNR) MEDICARE () PART A Apr 11, 2012 PART A [id number] MATY[place],F RANK PATIENT MEDICARE (WNR) MEDICARE () PART A Apr 11, 2012 PART A [id number] [facility] MATYOKA,F RANK PATIENT MEDICARE (WNR) MEDICARE () PART A Apr 11, 2012 PART A [id number] [facility] Sae BLAND RANK PATIENT MEDICARE (WNR) MEDICARE (M) PART A Apr 11, 2012 PART A [id number] [facility] [phone] Sae BLAND PATIENT Selected Encounter This section includes the information on record at [place] for the Encounter. Date/Time Encounter Type Encounter Description Reason Provider Source May 27, 2024 02:30 PM OFFICE O/P EST HI 40 MIN OPTOMETRY ICD-10-CM H53.2 Diplopia VERNON,LISA Davis E Encounter Template Text not used by [place] Assessments - Encounter Diagnoses This section includes the primary and secondary diagnoses documented for the Encounter. Date/Time Primary/Secondary Diagnosis Diagnosis Name Provider Source Aug 07, 2024 10:37 AM PRIMARY Diplopia LISA VERNON [facility] [place] [facility] Aug 07, 2024 10:37 AM SECONDARY Age-related nuclear cataract, bilateral LISA VERNON [facility] [place] [facility] Aug 07, 2024 10:37 AM SECONDARY Dry eye syndrome of bilateral lacrimal glands LISA VERNON [facility] [place] [facility] Aug 07, 2024 10:37 AM SECONDARY Open angle with borderline findings, low risk, bilateral LISA VERNON [facility] [place] [facility] Aug 07, 2024 10:37 AM SECONDARY Presbyopia LISA VERNON [facility] [place] [facility] Aug 07, 2024 10:37 AM SECONDARY Type 2 diabetes mellitus without complications [facility] Plan of Treatment: Future Appointments (+ 6 months) and Future Tests (+/- 45 days) The Plan of Treatment section includes future care activities for the patient from all [place] treatmentfacilities. This section includes future appointments and [...] 07, 2024 10:30 AM AMBULATORY - NONE [facility] [place] [facility] Aug 25, 2024 10:00 AM AMBULATORY - MEDICINE [facility] [place] [facility] 2024 12:30 PM AMBULATORY - NONE PROVID[facility] Nov 11, 2024 12:30 PM AMBULATORY - PSYCHIATRY [facility] [place] [facility] Nov 25, 2024 03:00 PM AMBULATORY - MEDICINE [facility] [place] [facility] [...] took place. Date/Time Current Smoking Status Comment [facility] Dec 11, 2023 11:30 AM VA-TOBACCO QUIT 15 YRS OR MORE [facility] [place] [facility] [...] VA-TOBACCO FORMER USER [facility] [place] [facility] Nov 29, 2017 09:01 AM VA-TOBACCO QUIT 15 YRS OR MORE [facility] [place] [facility] Dec 13, 2016 08:30 AM LIFETIME NON-TOBACCO USER [facility] [place] [facility] Jul 13, 2015 09:13 PM QUIT TOBACCO USE > 7 YEARS AGO . [facility] [place] [facility] Feb 15, 2009 09:19 AM QUIT TOBACCO USE > 7 YEARS AGO quit when he left service in 1968. [facility] [place] [facility] Encounter Notes: All associated encounter notes This section contains the clinical notes associated to the Encounter. Date/Time Encounter Note(s) Provider Source May 27, 2024 07:39 AM OPTOMETRY NOTE: LOCAL TITLE: OPTOMETRY NOTE STANDARD TITLE: OPTOMETRY NOTE DATE OF NOTE: MAY 27, 2024@07:39 ENTRY DATE: MAY 27, 2024@07:39:32 AUTHOR: LISA VERNON EXP COSIGNER: URGENCY: STATUS: COMPLETED Eye Examination for: SRAVANTHI BLAND, 79 year old WHITE MALE DREA: 9.27.24 Reason for Visit/CC: Patient here for CEE. [place] reports he is needing refill of both the PFATs and gel artificial tears. reports he is having difficulty with reading, feels he is having difficulty with eye movements. [place] reports he has been having difficulty reading for 2 months, reports it has been at least 6 months. Reports when the double vision started he was possibly having TIAs later in exam said that was ruled out at ER, ruled out CVAs and ruled out myesthenia gravis. ER recommended further evaluation with neurology per and report. [place] was losing balance a few months ago and briefly was walking sideways. Went to and sent to ER for workup. reports he is having difficulty with word searching as well. Reports neurology was recommended by ER but PCP decided since diplopia controlled with prism from Dr. Thayer's office elected not to proceed. Current Ocular Meds: Refresh gel QHS-BID OU PFATs Q1H as needed OU OHx/HPI: 1. Type II Diabetes without evidence of retinopathy or macular edema OU 2. Dry Eye Syndrome OU 3. Nuclear Sclerotic Cataracts OU 4. Refractive Error and Presbyopia OU 5. Low risk open-angle glaucoma suspect OU. (-) Pain: (-) BRANCH: (+) Diplopia: well controlled with current prism (-) Flashes: (-) Floaters: (?) Amaurosis Fugax/Tia's: unsure if possibly events (-) Eye Injury: (-) Eye Surgery: (-) TBI FOHx: (-) Glaucoma (-) ARMD (-) Blindness MHx: Code Description Q44.6 Liver cyst ([facility] 52839799) Z77.29 Exposure to potentially hazardous substance ([facility] [id number]) M48.02 Spinal stenosis in cervical region ([facility] 66221218) E04.1 Thyroid nodule ([facility] 248764380) R97.20 Elevated PSA ([facility] 410518162) K22.2 Esophageal stricture ([facility] 05900853) F43.10 Posttraumatic stress disorder ([facility] 19349469) G57.10 Meralgia paresthetica ([facility] 52252258) 362.57 Drusen (ICD-9-CM 362.57) E11.9 Type 2 diabetes mellitus ([facility] 32038073) E78.00 Hyperlipidemia ([facility] 08635116) 389.9 Hearing Loss (ICD-9-CM 389.9) SYSTEMIC MEDICATIONS/OCULAR MEDICATIONS: Active Outpatient Medications (including Supplies): Active Outpatient Medications Status 1) ATORVASTATIN CALCIUM 40MG TAB TAKE ONE-HALF TABLET BY MOUTH ACTIVE ONCE DAILY Indication: FOR HIGH CHOLESTEROL 2) [...] FOR PREVENTION OF VITAMIN B12 DEFICIENCY 5) DEPEND UNDERWEAR,MAXIMUM,MEN SM/MED USE 1 BRIEF DIRECTED ACTIVE THREE TIMES A DAY Indication: INCONTINENCE 6) INCONT LINER,MALE GUARD MAX ABS ATTENDS USE 1 LINER ACTIVE TOPICALLY TWICE DAILY 7) MAGNESIUM OXIDE 420MG TAB TAKE ONE TABLET BY MOUTH ONCE ACTIVE DAILY Indication: FOR MAGNESIUM SUPPLEMENTATION Active Non-VA Medications Status 1) Non-VA VIBEGRON 75MG TAB 75MG BY MOUTH ONCE DAILY ACTIVE 8 Total Medications ALLERGIES: INTRAVASCULAR CONTRAST MEDIA, METFORMIN, GABAPENTIN, MIRTAZAPINE VITALS (most recent, as listed in the electronic record): B/P: 131/73 (04/15/2024 10:10) Pulse: 68 (04/15/2024 10:10) Temperature: 97.7 F [36.5 C] (04/15/2024 10:10) Weight: 160 lb [72.57 kg] (04/15/2024 10:10) Height: 69 in [175.3 cm] (10/15/2023 09:00) BMI: BMI: 23.7 PERTINENT LABS: HEMOGLOBIN A1C TREND Collection DT Spec HGBA1c 04/01/2024 09:16 BLOOD 6.1 H 09/30/2023 08:32 BLOOD 5.5 04/02/2023 08:20 BLOOD 5.9 H 11/21/2022 08:27 BLOOD 5.7 H 11/27/2021 08:37 BLOOD 5.9 H (-) Smoker: quit 1967 Current Rx with last BCVA: OD: +1.25 20/15-2 OS: +1.50 20/15 Add: +2.50 20/20 updated: OD: +1.75-0.22k550 2^ Base Out OS: +1.25-0.77z231 2^ Base Out ADD: +2.50 DVA ( )sc ( x )cc - [x]phoropter []specs []CL OD: 20/15 OS: 2015-1 Entrance Testing: Pupil: PERRL (-)APD EOM: SAFE OU, (-)Pain/Diplopia *unable to elicit diplopia in any position of gaze CVF: FTFC OU Subjective Refraction: OD: +1.50 2^ MDAHU 20/15 OS: +1.25 2^ MADHU 20/15 Add: +2.50 20/20 *no improvement with increase or decrease of prism SLE: Lids/Lashes: clear OU Conjunctiva: white and quiet bulbar conj OU quiet palpebral conj OU Corneas: dense arcus OU Iris: flat and clear OU, (-)NVI/TID OU AC: D & Q OU Angles: 4x4 OU TAP @ 3:02pm OD 11 mmHg OS 11 mmHg [x]Jernigan []iCare []GAT Last IOP: OD: 11 OS: 11 Undilated Fundus Exam: Vit: syneresis OU Lens: 2+ NSC OU (-)PXF OU C/D (Size and Rim Description) OD 0.50 pink and healthy OS 0.50 pink and healthy (-)NVD/Drance heme OU PPole OD clear OS clear (-)DBH/CWS/RAEANN/VB OU Macula OD flat, tr drusen OS flat, tr drusen (-)CSME/SRF/SRH OU A/V: normal caliber OU Assessment/Plan: 1. Diplopia of unknown origin controlled with 4^ MADHU at distance. Unable to elicit diplopia in office on EOM testing. Near testing with 4^MADHU resulted in single vision. Significant reading difficulty and additional neurologic symptoms such as episode of dizziness that may be unrelated and increased difficulty with word finding. -Pt ed re today's findings -Consult placed for binocular workup with Dr. Blanco - repeated back the plan and education. -Monitor 2. Dry Eye Syndrome OU - symptomatic -Pt ed re today's findings -Continue Gel Artificial Tears QHS-BID OU -Continue Preservative free artificial tears q1H while awake as needed -[place] repeated back the plan and education. -Monitor 3. Nuclear Sclerotic Cataracts OU - not visually significant at present -Pt ed re today's findings and the importance of UV protection -Pt ed cataracts may cause reduction of BCVA and symptoms of glare -RTC sooner if vision declines or interferes with ADLs - repeated back the plan and education. -Monitor 4. Low risk open-angle glaucoma suspect OU, borderline findings. Moderate cupping with normotensive IOP and slightly thinner than average CCT. No evidence of pigment dispersion or pseudoexfoliation OU. No known family history of glaucoma. No change in ONH appearance. Low index of suspicion at present. -Pt ed re today's findings -Pt ed re glaucoma as well as the natural history of this diagnosis including prognosis. -Stress importance of continued follow-up appointments - repeated back the plan and education. -RTC 6 months 5. Type II Diabetes without evidence of retinopathy or macular edema OU to extent viewed undilated -Pt ed re today's findings and the possible ocular health and visual complications associated with diabetes as well as importance of attending follow up appointments -Encouraged blood sugar, blood pressure and lipid control as directed by provider managing diabetes. -Pt ed to report any vision changes CHIKA. -[place] repeated back the plan and education. -Monitor 6. Refractive Error and Presbyopia OU -CPM pending TBI Optom eval -Monitor RTC 6 months or earlier PRN Glasses adjusted/repaired in office: () Yes (x) No If yes, how many pairs: Total Time: 50 Minutes *This includes time spent before, during and after the visit occurring on the day of service and does not include procedures coded separately. Time includes chart review, examination, counseling of patient/family/caregiver, ordering medications, ordering tests, ordering procedures, referring and communicating with other HCP, and documentation in the electronic health record. Time does not include procedures coded separately, time spent on a different calendar day or time of clinical staff. Education: Diabetes: Patient was educated regarding diabetes [...] Remote Allergy/ADR Data available for this patient [facility] [place] [facility] GABAPENTIN [facility] [place] [facility] INTRAVASCULAR CONTRAST [facility] [place] [facility] METFORMIN [facility] [place] [facility] MIRTAZAPINE Med. Reconciliation (Tool #1) INCLUDED IN THIS LIST: Alphabetical list of active outpatient prescriptions dispensed from this AR (local) and dispensed from another [place] or [facility] facility (remote) as well as inpatient orders (local pending and active), local clinic medications, locally documented non-VA medications, and local prescriptions that have or been discontinued in the past 90 days. Non-VA Meds Last Documented On: Apr 15, 2024 NOTE The display of VA prescriptions dispensed from another AR or [facility] facility (remote) is limited to active outpatient prescription entries matched to National Drug File at the originating site and may not include some items such as investigational drugs, compounds, etc. NOT INCLUDED IN THIS LIST: Medications self-entered by the patient into personal health records (i.e. [email or web address]) are NOT included in this list. Non-VA medications documented outside this AR, remote inpatient orders (regardless of status) and remote clinic medications are NOT included in this list. The patient and provider must always discuss medications the patient is taking, regardless of where the medication was dispensed or obtained. -------- OUTPT ATORVASTATIN CALCIUM 20MG TAB (Status = Discontinued) TAKE ONE-HALF TABLET BY MOUTH ONCE DAILY FOR HIGH CHOLESTEROL Rx# [id number] Last Released: 01/22/24 Qty/Days Supply: Rx Expiration Date: 04/16/24 Refills Remainin Indication: FOR HIGH CHOLESTEROL OUTPT ATORVASTATIN CALCIUM 40MG TAB (Status = Active) TAKE ONE-HALF TABLET BY MOUTH ONCE DAILY Rx# [id number] Last Released: 04/16/24 Qty/Days Supply: Rx Expiration Date: 04/16/25 Refills Remainin Indication: FOR HIGH CHOLESTEROL OUTPT CARBOXYMETHYLCELLULOSE 0.5%(PF)OP RAZA UD (Status = Active/Suspended) INSTILL 1 DROP INTO EACH EYE EVERY 2 HOURS WHILE AWAKE Rx# [id number] Last Released: 02/14/24 Qty/Days Supply: 10030 Rx Expiration Date: 08/20/24 Refills Remainin Indication: FOR DRY EYE OUTPT CARBOXYMETHYLCELLULOSE NA 1% OPH GEL (Status = Active/Suspended) APPLY 1 DROP INTO EACH EYE AT BEDTIME FOR DRY EYE Rx# [id number] Last Released: 03/25/24 Qty/Days Supply: Rx Expiration Date: 12/27/24 Refills Remainin Indication: FOR DRY EYE OUTPT CYANOCOBALAMIN 1000MCG TAB (Status = Active) TAKE ONE TABLET BY MOUTH ONCE DAILY FOR PREVENTION OF VITAMIN B12 DEFICIENCY Rx# [id number] Last Released: 01/22/24 Qty/Days Supply: Rx Expiration Date: 01/21/25 Refills Remainin Indication: FOR PREVENTION OF VITAMIN B12 DEFICIENCY OUTPT DOCUSATE NA 50MG/SENNOSIDES 8.6MG TAB (Status = ) TAKE 2 TABLETS BY MOUTH ONCE DAILY FOR CONSTIPATION Rx# [id number] Last Released: 03/26/23 Qty/Days Supply: Rx Expiration Date: 03/26/24 Refills Remainin Indication: FOR CONSTIPATION OUTPT LORAZEPAM 0.5MG TAB (Status = ) TAKE ONE TABLET BY MOUTH ONCE DAILY NEEDED Rx# [id number] Last Released: 03/25/24 Qty/Days Supply: Rx Expiration Date: 04/18/24 Refills Remainin Indication: FOR ANXIETY OUTPT MAGNESIUM OXIDE 420MG TAB (Status = Active) TAKE ONE TABLET BY MOUTH ONCE DAILY FOR MAGNESIUM SUPPLEMENTATION Rx# [id number] Last Released: 01/22/24 Qty/Days Supply: Rx Expiration Date: 01/21/25 Refills Remainin Indication: FOR MAGNESIUM SUPPLEMENTATION OUTPT OXYBUTYNIN CHLORIDE 15MG SA TAB (Status = Discontinued) TAKE ONE TABLET BY MOUTH ONCE DAILY FOR BLADDER INSTABILITY Rx# [id number] Last Released: 11/08/23 Qty/Days Supply: Rx Expiration Date: 11/07/24 Refills Remainin Indication: FOR FREQUENT URINATION Non-VA VIBEGRON 75MG TAB TAKE ONE TABLET BY MOUTH ONCE DAILY OUTPT ZOLPIDEM TARTRATE 10MG TAB (Status = ) TAKE ONE TABLET BY MOUTH AT BEDTIME FOR SLEEP Rx# [id number] Last Released: 03/24/24 Qty/Days Supply: Rx Expiration Date: 05/13/24 Refills Remainin Indication: FOR SLEEP -------- SUPPLIES -------- OUTPT DEPEND UNDERWEAR,MAXIMUM,MEN SM/MED (Status = Active) USE 1 BRIEF DIRECTED THREE TIMES A DAY INCONTINENCE Rx# [id number] Last Released: 12/11/23 Qty/Days Supply: Rx Expiration Date: 12/05/24 Refills Remainin Indication: INCONTINENCE OUTPT INCONT LINER,MALE GUARD MAX ABS ATTENDS (Status = Active) USE 1 LINER TOPICALLY TWICE DAILY Rx# [id number] Last Released: 04/18/24 Qty/Days Supply: 120 Rx Expiration Date: 04/16/25 Refills Remainin PHARMACY TERMS AND POSSIBLE PATIENT ACTIONS INPT [...] you have questions a visit to a AR clinic or about this medication emergency department. contact your AR healthcare team. DISCONTINUED A prescription your provider has Contact your AR stopped. It is no longer healthcare team [...] the [facility]. Or, it may be an [id number] (OTC), herbal, dietary supplements or sample medication. [...] An active prescription that is Contact your AR not scheduled to be filled yet. 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
--- OUTSIDE RECORDS SUMMARY | 2024-08-07 06:30 | XMS_ITS ---
Author Name [facility] [place] [facility] [facility] [place] Address [address] [place] [address] Care Team Providers Care Rental Coordinator Name Role Phone ESTEFANY OVERTON Primary Care [...] Name Patient's Relationship to Policy Flores GHISLAINE [facility] PREFERRED PROVIDER ORGANIZAT ION (PPO) BASIC FAMIL Y Feb 23, 2001 [id number] [phone] Priya BLAND SPOUSE ANTHEM BCBS FEP PREFERRED PROVIDER ORGANIZAT ION (PPO) FEP BASIC FAMIL Y Feb 23, 2001 [id number] [phone] EDWINA SPOUSE GHISLAINE FEP PREFERRED PROVIDER ORGANIZAT ION (PPO) FEP BASIC FAMIL Y Feb 23, 2001 [id number] [phone] Priya BLAND SPOUSE BCBS MD FEP PREFERRED PROVIDER ORGANIZAT ION (PPO) BASIC FAMIL Y Feb 23, 2001 [id number] Priya BL[place] FED[place]AL PREFERRED PROVIDER ORGANIZAT ION (PPO) BASIC FAMIL Y Feb 23, 2001 [id number] Priya BLAND SPOUSE [place] FEP ([id number]) PRESCRIPT ION FEP RX Feb 23, 2001 [id number] [phone] Priya BLAND SPOUSE [place] FEP BCBS PRESCRIPT ION CAREM ARK FEPRX Feb 11, 2010 [id number] Priya BLAND SPOUSE [place]ARK-F EP BCBS PRESCRIPT ION BCBS FEP PLAN Feb 11, 2010 [id number] Priya BLAND SPOUSE MEDICARE (WNR) MEDICARE () PART B Feb 11, 2015 PART B [id number] [facility] [place],F RANK PATIENT MEDICARE (WN) MEDICARE () PART B Feb 11, 2015 PART B [id number] [facility] [place],F RANK PATIENT MEDICARE (WNR) MEDICARE () PART B Feb 11, 2015 PART B [id number] [facility] [place],F RANK PATIENT MEDICARE (WNR) MEDICARE () PART B Feb 11, 2015 PART B [id number] [facility] [phone] [place],F RANK PATIENT MEDICARE (WNR) MEDICARE () PART B Feb 11, 2015 PART B [id number] [id number] [phone] [place],F RANK PATIENT MEDICARE (WNR) MEDICARE () PART A Apr 11, 2012 PART A [id number] [facility] [phone] [place],F RANK PATIENT MEDICARE (WNR) MEDICARE () PART A Apr 11, 2012 PART A [id number] [facility] [place],F RANK PATIENT MEDICARE (WNR) MEDICARE () PART A Apr 11, 2012 PART A [id number] [facility] [place],F RANK PATIENT MEDICARE (WNR) MEDICARE () PART A Apr 11, 2012 PART A [id number] [facility] Sae BLAND RANK PATIENT MEDICARE (WNR) MEDICARE (M) PART A Apr 11, 2012 PART A [id number] [facility] Sae BLAND RANK PATIENT Selected Encounter This section includes the information on record at [place] for the Encounter. 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 Date/Time Primary/Secondary Diagnosis Diagnosis Name Provider Source Aug 07, 2024 12:17 PM PRIMARY Esophoria ROCIO STEINER [place] [facility] [place] [facility] Aug 07, 2024 12:17 PM SECONDARY Hypermetropia, bilateral ROCIO STEINER [facility] [place] [facility] Aug 07, 2024 12:17 PM SECONDARY Specific reading disorder EVERARDOROCIO SHEEHAN [facility] [place] [facility] Plan of Treatment: Future Appointments (+ 6 months) and Future Tests (+/- 45 days) The Plan of Treatment section includes future care activities for the patient from all [place] [facility]. This section includes future appointments and future orders which are active, pending or scheduled. Future Appointments This section includes appointments that were scheduled to occur 6 months from the date of the Encounter, up to a maximum of 20 appointments. The data comes from all [place] treatment facilities. Appointment Date/Time Appointment Type Appointme nt Facility Name Aug 25, 2024 10:00 AM [place] [facility] [place] [facility] Oct 05, 2024 01:30 PM [place] [facility] [place] [facility] Oct 09, 2024 02:00 PM AMBULATORY [facility] [place] [facility] Oct 23, 2024 10:30 AM AMBULATORY - [facility]AB MEDICIN [facility] [place] [facility] Nov 04, 2024 01:30 PM AMBULATORY - [facility]ICIN [facility] [place] [facility] Nov 09, 2024 02:00 PM AMBULATORY - REHAB MEDICIN E [facility] Nov 11, 2024 12:30 PM AMBULATORY - NONE [facility] Nov 11, 2024 12:30 PM AMBULATORY - PSYCHIATRY [facility] Nov 25, 2024 03:00 PM AMBULATORY - MEDICINE [facility] Nov 27, 2024 09:30 AM AMBULATORY - MEDICINE [facility] Lab Results: +/- 30 days of the encounter This section includes the Chemistry and Hematology Lab Results on record with [place] for the patient. Radiology Reports and Pathology Reports are provided separately, in subsequent sections. Lab Results This section contains the Chemistry/Hematology Results that were resulted 30 days before or 30 daysafter the date of the Encounter. Date/Time Source Result Type Result - Unit Interpretation Reference Range Specimen Type Comment Jul 13, 2024 08:50 AM [facility] PSA SERUM Specimen Type: SERUM No comment entered. Ordering Provider: ESTEFANY OVERTON Report Released Date/Time: Apr 15, 2024 10:41 AM Reporting Lab: [facility] [address] [facility] [address] Performing Lab: [address] [address] PSA 3.4 ng/mL 0-4 Social History: Smoking Status (Most current) and Tobacco Use (All prior to encounter date) This section includes the most current, and the historical, smoking and tobacco- related health factors from the [place] facility where the Encounter took place. Current Smoking Status This section includes the most current smoking, or tobacco-related health factor, from the [place] facility where the Encounter took place. Date/Time Current Smoking Status Comment [facility] Dec 11, 2023 11:30 AM [place]-TOBACCO QUIT 15 YRS OR MORE [facility] Tobacco Use History This section includes a history of the smoking, or tobacco-related health factors, that were collected on or before the date of the Encounter. The data comes from the [place] facility where the Encounter took place. Date/Time Smoking Status/Tobac co Use Comment Facility Dec 11, 2023 11:30 AM [place]-TO[place] QUIT 15 YRS OR MORE [facility] [place] [facility] Dec 18, 2022 10:00 AM VA-TOBACCO FORMER USER [facility] [place] [facility] Dec 18, 2022 10:00 AM [place]-TOBACCO QUIT 15 YRS OR MORE [facility] [place] [facility] Dec 06, 2021 09:30 AM VA-TOBACCO FORMER USER [facility] [place] [facility] Dec 06, 2021 09:30 AM VA-TOBACCO QUIT 15 YRS OR MORE [facility] [place] [facility] Nov 03, 2020 03:30 PM VA-TOBACCO FORMER USER [facility] [place] [facility] Nov 03, 2020 03:30 PM VA-TOBACCO QUIT 15 YRS OR MORE [facility] [place] [facility] Dec 04, 2019 10:30 AM VA-TOBACCO FORMER USER [facility] [place] [facility] Dec 04, 2019 10:30 AM VA-TOBACCO QUIT 15 YRS OR MORE [facility] [place] [facility] May 30, 2018 09:32 AM VA-TOBACCO FORMER USER [facility] [place] [facility] May 30, 2018 09:32 AM VA-TOBACCO QUIT 15 YRS OR MORE [facility] [place] [facility] Nov 29, 2017 09:01 AM VA-TOBACCO FORMER USER [facility] [place] [facility] Nov 29, 2017 09:01 AM VA-TOBACCO QUIT 15 YRS OR MORE [facility] [place] [facility] Dec 13, 2016 08:30 AM LIFETIME NON-TOBACCO USER [facility] [place] [facility] Jul 13, 2015 09:13 PM QUIT TOBACCO USE > 7 YEARS AGO . [facility] [place] [facility] Feb 15, 2009 09:19 AM QUIT TOBACCO USE > 7 YEARS AGO quit when he left service in 1968. [place] [facility] [place] [facility] Encounter Notes: All associated encounter notes This section contains the clinical notes associated to the Encounter. Date/Time Encounter Note(s) Provider Source Aug 07, 2024 01:46 PM ADDENDUM: LOCAL TITLE: Addendum STANDARD TITLE: ADDENDUM DATE OF NOTE: AUG 07, 2024@13:46:45 ENTRY DATE: AUG 07, 2024@13:46:46 AUTHOR: ROCIO STEINER EXP COSIGNER: URGENCY: STATUS: COMPLETED Dr. Overton - Mr. Bland has developed reading difficulties that are not due to his vision or prior issue with diplopia. He believes this issue began around the same time as his diplopia and dizziness episode for which he was seen in the ER back in November. His also endorses worsening memory issues. Requesting your assistance on appropriate next steps to evaluate this issue - unsure if it should be neurology, neuropsych or CMM OPERATOR? Please enter appropriate consult as at your discretion. Thank you for your assistance. /zoë/ ROCIO STEINER OD Floor Associate Signed: 08/07/2024 13:50 Receipt Acknowledged By: 08/07/2024 16:10 /zoë/ ESTEFANY OVERTON D.O. PHYSICIAN --- Original Document --- 08/07/24 CONSULT REPORT/TBI/POLYTRAUMA/OPTOMETRY: ACQUIRED BRAIN INJURY VISUAL FUNCTIONING EXAMINATION 79 WHITE MALE NOT OR Last Eye Exam: 05/27/24 Chief Complaint/Reason for visit: new TBI optometry consult for diplopia and reading difficulties started seeing double when driving - maybe about a year ago. Was sent to ER for this in November - had head CT which was unremarkable, and they recommended that he follow up with a neurologist. He saw Dr. Thayer who gave him the prism glasses. Now he can't read as well as he used to. Loses track of where he is, skip words, makes up words. Thinks he does better with bigger font. no diplopia current glasses Also notes more memory issues OHx: Type II DM without retinopathy OU low risk open angle glaucoma suspect OU cataracts OU dry eye OU diplopia (-) Pain: (-) BRANCH: (-) Diplopia: (-) Flashes: (-) Floaters: (-) Amaurosis Fugax/Tia's: (-) Eye Injury: (-) Eye Surgery: (-) TBI (-) FOHx: MHx: Code Description Q44.6 Liver cyst ([facility] 27950382) Z77.29 Exposure to potentially hazardous substance ([facility] 130648576602464) M48.02 Spinal stenosis in cervical region ([facility] 18627296) E04.1 Thyroid nodule ([facility] 599605350) R97.20 Elevated PSA ([facility] 488465303) K22.2 Esophageal stricture ([facility] 61457602) F43.10 Posttraumatic stress disorder ([facility] 01198270) G57.10 Meralgia paresthetica ([facility] 82231575) 362.57 Drusen (ICD-9-CM 362.57) E11.9 Type 2 diabetes mellitus ([facility] 94121968) E78.00 Hyperlipidemia ([facility] 80197475) 389.9 Hearing Loss (ICD-9-CM 389.9) Other: Systemic Medications: Active Outpatient Medications (including Supplies): Active Outpatient Medications Status 1) ATORVASTATIN CALCIUM 40MG TAB TAKE ONE-HALF TABLET BY MOUTH ACTIVE ONCE DAILY Indication: FOR HIGH CHOLESTEROL 2) CARBOXYMETHYLCELLULOSE 0.5%(PF)OP RAZA UD INSTILL 1 DROP INTO ACTIVE EACH EYE EVERY 2 HOURS WHILE AWAKE Indication: FOR DRY EYE 3) CARBOXYMETHYLCELLULOSE NA 1% OPH GEL APPLY 1 DROP INTO EACH ACTIVE (S) EYE AT BEDTIME Indication: FOR DRY EYE 4) CYANOCOBALAMIN 1000MCG TAB TAKE ONE TABLET BY MOUTH ONCE ACTIVE DAILY Indication: FOR PREVENTION OF VITAMIN B12 DEFICIENCY 5) DEPEND UNDERWEAR,MAXIMUM,MEN SM/MED USE 1 BRIEF DIRECTED ACTIVE THREE TIMES A DAY Indication: INCONTINENCE 6) INCONT LINER,MALE GUARD MAX ABS ATTENDS USE 1 LINER ACTIVE TOPICALLY TWICE DAILY 7) LORAZEPAM 0.5MG TAB TAKE ONE TABLET BY MOUTH ONCE DAILY ACTIVE NEEDED Indication: FOR ANXIETY 8) MAGNESIUM OXIDE 420MG TAB TAKE ONE TABLET BY MOUTH ONCE ACTIVE DAILY Indication: FOR MAGNESIUM SUPPLEMENTATION 9) ZOLPIDEM TARTRATE 10MG TAB TAKE ONE TABLET BY MOUTH AT ACTIVE BEDTIME Indication: FOR SLEEP Active Non-VA Medications Status 1) Non-VA VIBEGRON 75MG TAB 75MG BY MOUTH ONCE DAILY ACTIVE 10 Total Medications Allergies: INTRAVASCULAR CONTRAST MEDIA, METFORMIN, GABAPENTIN, MIRTAZAPINE Habitual Rx: OD: +1.75-0.12f760 2^ Base Out OS: +1.25-0.10d808 2^ Base Out ADD: +2.50 DVA ( )sc ( x )cc OD 20/20-1 OS 20/20-1 EOMs: Full range of motion (-)pain/diplopia/restrictions (-) evidence of CN III, CN IV, CN paresis or palsy Confrontation visual kaye: (peripheral, simultaneous) OD: full Signs of gross neglect by Confrontation Visual Field: no OS: full Signs of gross neglect by Confrontation Visual Field: no Cover Test Distance: 4 esophoria Near: ortho Compensating Distance Vergence Ranges(prism bar): blur/break/recovery DBI 1/0 DBO 10/8 needed additional 1 MADHU for single after DBD 1/0 DBU 1/0 Subjective Refraction: OD: +1.50 sph 20/20-1 OS: +1.00 -0.25 x 020 20/20-1 Add: +2.50 20/20 OU distance in phoropter needed 14 MADHU for single NLP 1 eso NVP ortho TF subjective - clear Kat Ramon: TF - no prism Distance Vertical: ortho Horizontal: 6 eso Near Vertical: ortho Horizontal: 6 eso at distance in TF - single with 4 MADHU but easily dissociated - more solid with 5 or 6 MADHU at near in TF better without prism (or better with BI than MADHU, MADHU worse) attempted near vergence ranges, did not see double with any amount of prism BI or MADHU reading with current PALs - slight preference for habitual prism than with 4 BI over (net no prism) 1 M print - slow, halting, misread several words without realizing (shavon for luli), several words he could not sound out. No improvement with an eye occluded, no improvement with card underlining line 1.5M print - same performance, could spell out the words he couldn't read but could not usually figure out the word. 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 At some point may need prism increased but not indicated at this time. 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 reading issues - not related to diplopia or binocular vision issue. Reading issues persist with one eye occluded, with oculomotor support ([employer]) and with large print (not acuity issue). Seems to be a cognitive issue not visual. Alert to PCP for further work up. also mentions worsening memory issues. 3. 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 Order new NVO without prism - may assist somewhat with reading issues, although other non-visual reading issues likely present (See above) RTC 11/2024 Dr. Farmer, TBI optometry prn Time documentation: Total exam time: 56 minutes Time spent on preparation/reviewing record and documentation on date of service: 30 minutes Procedures: (subtract time) Refraction: 5 min Sensorimotor exam: 10 min Total time spent minus separate procedures: 71 minutes /zoë/ ROCIO STEINER OD Floor Associate Signed: 08/07/2024 12:22 08/07/2024 ADDENDUM STATUS: COMPLETED please assist in ordering duplicate glasses: RX INFORMATION OD +4.00 0.00 X Add:0.00 Pzm:0.00 Dir: Prz2:0.00 Dir2: OS +3.50 -0.25 X20 Add:0.00 Pzm:0.00 Dir: Prz2:0.00 Dir2: FITTING INFORMATION FPD: NPD: Keith:R:25.5 L:27.5 SEG HT:R: L: Tint:None Shade:None [place] Billable Items FRAME: VIRGIE [place] [id number] Right Lens: POLY SINGLE VISION 1.586 POLY Left Lens: POLY SINGLE VISION 1.586 POLY KLEAR ANTI-REFLECTIVE COATING /zoë/ ROCIO STEINER OD Floor Associate Signed: 08/07/2024 12:25 Receipt Acknowledged By: 08/07/2024 13:53 /zoë/ Angie Turner Optometry Health Wildlife Conservation Professor 08/07/2024 ADDENDUM STATUS: COMPLETED Optometry Health Wildlife Conservation Professor ordered patient 1 pair(s) of sv eyeglasses on 08/07/24 as directed by provider. OPT HT entered consult(s) for order on behalf of provider. /zoë/ Angie Turner Optometry Health Wildlife Conservation Professor Signed: 08/07/2024 13:54 ROCIO STEINER [facility] [place] [facility] Aug 07, 2024 12:22 PM ADDENDUM: LOCAL TITLE: Addendum STANDARD TITLE: ADDENDUM DATE OF NOTE: AUG 07, 2024@12:22:52 ENTRY DATE: AUG 07, 2024@12:22:54 AUTHOR: ROCIO STEINER EXP COSIGNER: URGENCY: STATUS: COMPLETED please assist in ordering duplicate glasses: RX INFORMATION OD +4.00 0.00 X Add:0.00 Pzm:0.00 Dir: Prz2:0.00 Dir2: OS +3.50 -0.25 X20 Add:0.00 Pzm:0.00 Dir: Prz2:0.00 Dir2: FITTING INFORMATION FPD: NPD: Keith:R:25.5 L:27.5 SEG HT:R: L: Tint:None Shade:None VA Billable Items FRAME: VIRGIE BROWN [id number] Right Lens: POLY SINGLE VISION 1.586 POLY Left Lens: POLY SINGLE VISION 1.586 POLY KLEAR ANTI-REFLECTIVE COATING /zoë/ ROCIO STEINER OD Floor Associate Signed: 08/07/2024 12:25 Receipt Acknowledged By: 08/07/2024 13:53 /zoë/ Angie Turner Optometry Health Wildlife Conservation Professor --- Original Document --- 08/07/24 CONSULT REPORT/TBI/POLYTRAUMA/OPTOMETRY: ACQUIRED BRAIN INJURY VISUAL FUNCTIONING EXAMINATION 79 WHITE MALE NOT OR Last Eye Exam: 05/27/24 Chief Complaint/Reason for visit: new TBI optometry consult for diplopia and reading difficulties started seeing double when driving - maybe about a year ago. Was sent to ER for this in November - had head CT which was unremarkable, and they recommended that he follow up with a neurologist. He saw Dr. Thayer who gave him the prism glasses. Now he can't read as well as he used to. Loses track of where he is, skip words, makes up words. Thinks he does better with bigger font. no diplopia current glasses Also notes more memory issues OHx: Type II DM without retinopathy OU low risk open angle glaucoma suspect OU cataracts OU dry eye OU diplopia (-) Pain: (-) BRANCH: (-) Diplopia: (-) Flashes: (-) Floaters: (-) Amaurosis Fugax/Tia's: (-) Eye Injury: (-) Eye Surgery: (-) TBI (-) FOHx: MHx: Code Description Q44.6 Liver cyst ([facility] 34330316) Z77.29 Exposure to potentially hazardous substance ([facility] [id number]) M48.02 Spinal stenosis in cervical region ([facility] 13755371) E04.1 Thyroid nodule ([facility] 919883898) R97.20 Elevated PSA ([facility] 780061318) K22.2 Esophageal stricture ([facility] 79709809) F43.10 Posttraumatic stress disorder ([facility] 82926127) G57.10 Meralgia paresthetica ([facility] 54087489) 362.57 Drusen (ICD-9-CM 362.57) E11.9 Type 2 diabetes mellitus ([facility] 84658620) E78.00 Hyperlipidemia ([facility] 43688667) 389.9 Hearing Loss (ICD-9-CM 389.9) Other: Systemic Medications: Active Outpatient Medications (including Supplies): Active Outpatient Medications Status 1) ATORVASTATIN CALCIUM 40MG TAB TAKE ONE-HALF TABLET BY MOUTH ACTIVE ONCE DAILY Indication: FOR HIGH CHOLESTEROL 2) CARBOXYMETHYLCELLULOSE 0.5%(PF)OP RAZA UD INSTILL 1 DROP INTO ACTIVE EACH EYE EVERY 2 HOURS WHILE AWAKE Indication: FOR DRY EYE 3) CARBOXYMETHYLCELLULOSE NA 1% OPH GEL APPLY 1 DROP INTO EACH ACTIVE (S) EYE AT BEDTIME Indication: FOR DRY EYE 4) CYANOCOBALAMIN 1000MCG TAB TAKE ONE TABLET BY MOUTH ONCE ACTIVE DAILY Indication: FOR PREVENTION OF VITAMIN B12 DEFICIENCY 5) DEPEND UNDERWEAR,MAXIMUM,MEN SM/MED USE 1 BRIEF DIRECTED ACTIVE THREE TIMES A DAY Indication: INCONTINENCE 6) INCONT LINER,MALE GUARD MAX ABS ATTENDS USE 1 LINER ACTIVE TOPICALLY TWICE DAILY 7) LORAZEPAM 0.5MG TAB TAKE ONE TABLET BY MOUTH ONCE DAILY ACTIVE NEEDED Indication: FOR ANXIETY 8) MAGNESIUM OXIDE 420MG TAB TAKE ONE TABLET BY MOUTH ONCE ACTIVE DAILY Indication: FOR MAGNESIUM SUPPLEMENTATION 9) ZOLPIDEM TARTRATE 10MG TAB TAKE ONE TABLET BY MOUTH AT ACTIVE BEDTIME Indication: FOR SLEEP Active Non-VA Medications Status 1) Non-VA VIBEGRON 75MG TAB 75MG BY MOUTH ONCE DAILY ACTIVE 10 Total Medications Allergies: INTRAVASCULAR CONTRAST MEDIA, METFORMIN, GABAPENTIN, MIRTAZAPINE Habitual Rx: OD: +1.75-0.24m261 2^ Base Out OS: +1.25-0.50c757 2^ Base Out ADD: +2.50 DVA ( )sc ( x )cc OD 20/20-1 OS 20/20-1 EOMs: Full range of motion (-)pain/diplopia/restrictions (-) evidence of CN III, CN IV, CN paresis or palsy Confrontation visual kaye: (peripheral, simultaneous) OD: full Signs of gross neglect by Confrontation Visual Field: no OS: full Signs of gross neglect by Confrontation Visual Field: no Cover Test Distance: 4 esophoria Near: ortho Compensating Distance Vergence Ranges(prism bar): blur/break/recovery DBI 1/0 DBO 10/8 needed additional 1 MADHU for single after DBD 1/0 DBU 1/0 Subjective Refraction: OD: +1.50 sph 20/20-1 OS: +1.00 -0.25 x 020 20/20-1 Add: +2.50 20/20 OU distance in phoropter needed 14 MADHU for single NLP 1 eso NVP ortho TF subjective - clear Kat Ramon: TF - no prism Distance Vertical: ortho Horizontal: 6 eso Near Vertical: ortho Horizontal: 6 eso at distance in TF - single with 4 MADHU but easily dissociated - more solid with 5 or 6 MADHU at near in TF better without prism (or better with BI than MADHU, MADHU worse) attempted near vergence ranges, did not see double with any amount of prism BI or MADHU reading with current PALs - slight preference for habitual prism than with 4 BI over (net no prism) 1 M print - slow, halting, misread several words without realizing (shavon for kind), several words he could not sound out. No improvement with an eye occluded, no improvement with card underlining line 1.5M print - same performance, could spell out the words he couldn't read but could not usually figure out the word. 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 At some point may need prism increased but not indicated at this time. 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 reading issues - not related to diplopia or binocular vision issue. Reading issues persist with one eye occluded, with oculomotor support ([employer]) and with large print (not acuity issue). Seems to be a cognitive issue not visual. Alert to PCP for further work up. also mentions worsening memory issues. 3. 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 Order new NVO without prism - may assist somewhat with reading issues, although other non-visual reading issues likely present (See above) RTC 11/2024 Dr. Farmer, TBI optometry prn Time documentation: Total exam time: 56 minutes Time spent on preparation/reviewing record and documentation on date of service: 30 minutes Procedures: (subtract time) Refraction: 5 min Sensorimotor exam: 10 min Total time spent minus separate procedures: 71 minutes /zoë/ ROCIO STEINER OD Floor Associate Signed: 08/07/2024 12:22 08/07/2024 ADDENDUM STATUS: COMPLETED Dr. Overton - Mr. Bland has developed reading difficulties that are not due to his vision or prior issue with diplopia. He believes this issue began around the same time as his diplopia and dizziness episode for which he was seen in the ER back in November. His also endorses worsening memory issues. Requesting your assistance on appropriate next steps to evaluate this issue - unsure if it should be neurology, neuropsych or CMM OPERATOR? Please enter appropriate consult as at your discretion. Thank you for your assistance. /zoë/ ROCIO STEINER OD Floor Associate Signed: 08/07/2024 13:50 Receipt Acknowledged By: * AWAITING SIGNATURE * ESTEFANY OVERTON NOAH B [facility] [place] [facility] Aug 07, 2024 10:26 AM TBI CONSULT: LOCAL TITLE: CONSULT REPORT/TBI/POLYTRAUMA/OPTOMETRY STANDARD TITLE: TBI CONSULT DATE OF NOTE: AUG 07, 2024@10:26 ENTRY DATE: AUG 07, 2024@10:26:17 AUTHOR: ROCIO STEINER EXP COSIGNER: URGENCY: STATUS: COMPLETED CONSULT REPORT/TBI/POLYTRAUMA/OPTOMETRY Has ADDENDA ACQUIRED BRAIN INJURY VISUAL FUNCTIONING EXAMINATION 79 WHITE MALE NOT OR Last Eye Exam: 05/27/24 Chief Complaint/Reason for visit: new TBI optometry consult for diplopia and reading difficulties started seeing double when driving - maybe about a year ago. Was sent to ER for this in November - had head CT which was unremarkable, and they recommended that he follow up with a neurologist. He saw Dr. Thayer who gave him the prism glasses. Now he can't read as well as he used to. Loses track of where he is, skip words, makes up words. Thinks he does better with bigger font. no diplopia current glasses Also notes more memory issues OHx: Type II DM without retinopathy OU low risk open angle glaucoma suspect OU cataracts OU dry eye OU diplopia (-) Pain: (-) BRANCH: (-) Diplopia: (-) Flashes: (-) Floaters: (-) Amaurosis Fugax/Tia's: (-) Eye Injury: (-) Eye Surgery: (-) TBI (-) FOHx: MHx: Code Description Q44.6 Liver cyst ([facility] 39772298) Z77.29 Exposure to potentially hazardous substance ([facility] [id number]) M48.02 Spinal stenosis in cervical region ([facility] [id number]) E04.1 Thyroid nodule ([facility] [id number]) R97.20 Elevated PSA ([facility] [id number]) K22.2 Esophageal stricture ([facility] [id number]) F43.10 Posttraumatic stress disorder ([facility] [id number]) G57.10 Meralgia paresthetica ([facility] [id number]) 362.57 Drusen (ICD-9-CM 362.57) E11.9 Type 2 diabetes mellitus ([facility] [id number]) E78.00 Hyperlipidemia ([facility] [id number]) 389.9 Hearing Loss (ICD-9-CM 389.9) Other: Systemic Medications: Active Outpatient Medications (including Supplies): Active Outpatient Medications Status 1) ATORVASTATIN CALCIUM 40MG TAB TAKE ONE-HALF TABLET BY MOUTH ACTIVE ONCE DAILY Indication: FOR HIGH CHOLESTEROL 2) CARBOXYMETHYLCELLULOSE 0.5%(PF)OP RAZA UD INSTILL 1 DROP INTO ACTIVE EACH EYE EVERY 2 HOURS WHILE AWAKE Indication: FOR DRY EYE 3) CARBOXYMETHYLCELLULOSE NA 1% OPH GEL APPLY 1 DROP INTO EACH ACTIVE (S) EYE AT BEDTIME Indication: FOR DRY EYE 4) CYANOCOBALAMIN 1000MCG TAB TAKE ONE TABLET BY MOUTH ONCE ACTIVE DAILY Indication: FOR PREVENTION OF VITAMIN B12 DEFICIENCY 5) DEPEND UNDERWEAR,MAXIMUM,MEN SM/MED USE 1 BRIEF DIRECTED ACTIVE THREE TIMES A DAY Indication: INCONTINENCE 6) INCONT LINER,MALE GUARD MAX ABS ATTENDS USE 1 LINER ACTIVE TOPICALLY TWICE DAILY 7) LORAZEPAM 0.5MG TAB TAKE ONE TABLET BY MOUTH ONCE DAILY ACTIVE NEEDED Indication: FOR ANXIETY 8) MAGNESIUM OXIDE 420MG TAB TAKE ONE TABLET BY MOUTH ONCE ACTIVE DAILY Indication: FOR MAGNESIUM SUPPLEMENTATION 9) ZOLPIDEM TARTRATE 10MG TAB TAKE ONE TABLET BY MOUTH AT ACTIVE BEDTIME Indication: FOR SLEEP Active Non-VA Medications Status 1) Non-VA VIBEGRON 75MG TAB 75MG BY MOUTH ONCE DAILY ACTIVE 10 Total Medications Allergies: INTRAVASCULAR CONTRAST MEDIA, METFORMIN, GABAPENTIN, MIRTAZAPINE Habitual Rx: OD: +1.75-0.96v473 2^ Base Out OS: +1.25-0.65w327 2^ Base Out ADD: +2.50 DVA ( )sc ( x )cc OD 20/20-1 OS 20/20-1 EOMs: Full range of motion (-)pain/diplopia/restrictions (-) evidence of CN III, CN IV, CN paresis or palsy Confrontation visual kaye: (peripheral, simultaneous) OD: full Signs of gross neglect by Confrontation Visual Field: no OS: full Signs of gross neglect by Confrontation Visual Field: no Cover Test Distance: 4 esophoria Near: ortho Compensating Distance Vergence Ranges(prism bar): blur/break/recovery DBI 1/0 DBO 10/8 needed additional 1 MADHU for single after DBD 1/0 DBU 1/0 Subjective Refraction: OD: +1.50 sph 20/20-1 OS: +1.00 -0.25 x 020 20/20-1 Add: +2.50 20/20 OU distance in phoropter needed 14 MADHU for single NLP 1 eso NVP ortho TF subjective - clear Kat Ramon: TF - no prism Distance Vertical: ortho Horizontal: 6 eso Near Vertical: ortho Horizontal: 6 eso at distance in TF - single with 4 MADHU but easily dissociated - more solid with 5 or 6 MADHU at near in TF better without prism (or better with BI than MADHU, MADHU worse) attempted near vergence ranges, did not see double with any amount of prism BI or MADHU reading with current PALs - slight preference for habitual prism than with 4 BI over (net no prism) 1 M print - slow, halting, misread several words without realizing (shavon for kind), several words he could not sound out. No improvement with an eye occluded, no improvement with card underlining line 1.5M print - same performance, could spell out the words he couldn't read but could not usually figure out the word. 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 At some point may need prism increased but not indicated at this time. 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 reading issues - not related to diplopia or binocular vision issue. Reading issues persist with one eye occluded, with oculomotor support ([employer]) and with large print (not acuity issue). Seems to be a cognitive issue not visual. Alert to PCP for further work up. also mentions worsening memory issues. 3. 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 Order new NVO without prism - may assist somewhat with reading issues, although other non-visual reading issues likely present (See above) RTC 11/2024 Dr. Farmer, TBI optometry prn Time documentation: Total exam time: 56 minutes Time spent on preparation/reviewing record and documentation on date of service: 30 minutes Procedures: (subtract time) Refraction: 5 min Sensorimotor exam: 10 min Total time spent minus separate procedures: 71 minutes /kaitlin STEINER OD Floor Associate Signed: 08/07/2024 12:22 08/07/2024 ADDENDUM STATUS: COMPLETED please assist in ordering duplicate glasses: RX INFORMATION OD +4.00 0.00 X Add:0.00 Pzm:0.00 Dir: Prz2:0.00 Dir2: OS +3.50 -0.25 X20 Add:0.00 Pzm:0.00 Dir: Prz2:0.00 Dir2: FITTING INFORMATION FPD: NPD: Keith:R:25.5 L:27.5 SEG HT:R: L: Tint:None Shade:None VA Billable Items FRAME: VIRGIE BROWN [id number] Right Lens: POLY SINGLE VISION 1.586 POLY Left Lens: POLY SINGLE VISION 1.586 POLY KLEAR ANTI-REFLECTIVE COATING /kaitlin STEINER OD Floor Associate Signed: 08/07/2024 12:25 Receipt Acknowledged By: 08/07/2024 13:53 /zoë/ Angie Turner [facility] [employer] Professor 08/07/2024 ADDENDUM STATUS: COMPLETED Dr. Overton - Mr. Bland has developed reading difficulties that are not due to his vision or prior issue with diplopia. He believes this issue began around the same time as his diplopia and dizziness episode for which he was seen in the ER back in November. His also endorses worsening memory issues. Requesting your assistance on appropriate next steps to evaluate this issue - unsure if it should be neurology, neuropsych or CMM OPERATOR? Please enter appropriate consult as at your discretion. Thank you for your assistance. /zoë/ ROCIO STEINER OD Floor Associate Signed: 08/07/2024 13:50 Receipt Acknowledged By: * AWAITING SIGNATURE * ESTEFANY OVERTON 08/07/2024 ADDENDUM STATUS: COMPLETED Optometry Health Wildlife Conservation Professor ordered patient 1 pair(s) of sv eyeglasses on 08/07/24 as directed by provider. OPT HT entered consult(s) for order on behalf of provider. /zoë/ Angie Turner [facility] Wildlife Conservation Professor Signed: 08/07/2024 13:54 ROCIO STEINER [place] [facility]
--- OUTSIDE RECORDS SUMMARY | 2024-08-25 06:00 | XMS_ITS ---
Author Name [facility] [facility] [place] [facility] [place] [facility] [place] Address [address] [place] [address] Care Team Providers Care Fleet Technician Name Role Phone ESTEFANY OVERTON Primary [...] to Policy Flores [facility] PREFERRED PROVIDER ORGANIZAT ION (PPO) BASIC FAMIL Y Feb 23, 2001 [id number] [phone] Priya BLAND SPOUSE ANTHEM [employer]BS FEP PREFERRED PROVIDER ORGANIZAT ION (PPO) FEP BASIC FAMIL Y Feb 23, 2001 [id number] EDWINA SPOUSE [employer]IS[employer] FEP PREFERRED PROVIDER ORGANIZAT ION (PPO) FEP BASIC FAMIL Y Feb 23, 2001 112 [id number] [phone] Priya BLAND SPOUSE BCBS ME FEP PREFERRED PROVIDER ORGANIZAT ION (PPO) BASIC FAMIL Y Feb 23, 2001 [id number] Priya BLAND SPOUSE [place] [place] FEDERAL PREFERRED PROVIDER ORGANIZAT ION (PPO) BASIC FAMIL Y Feb 23, 2001 [id number] [phone] Priya BLAND SPOUSE CAR[place] FEP ([id number]) PRESCRIPT ION FEP RX Feb 23, 2001 [id number] [phone] Priya BLAND SPOUSE [employer] FEP BCBS PRESCRIPT ION CAREM ARK FEPRX Feb 11, 2010 [id number] Priya BLAND SPOUSE [employer]ARK-F EP BCBS PRESCRIPT ION BCBS FEP PLAN Feb 11, 2010 [id number] Priya BLAND SPOUSE MEDICARE (WN) MEDICARE () PART B Feb 11, 2015 PART B [id number] [facility] [place],F RANK PATIENT MEDICARE (WN) MEDICARE () PART B Feb 11, 2015 PART B [id number] [facility] [place],F RANK PATIENT MEDICARE (WNR) MEDICARE () PART B Feb 11, 2015 [place] B [id number] [id number] [place],F RANK PATIENT MEDICARE (WN) MEDICARE () PART B Feb 11, 2015 PART B [id number] [facility] [phone] [place],F RANK PATIENT MEDICARE (WNR) MEDICARE () PART B Feb 11, 2015 PART B [id number] [id number] [place],F RANK PATIENT MEDICARE (WNR) MEDICARE () PART A Apr 11, 2012 PART A [id number] [facility] [place],F RANK PATIENT MEDICARE (WNR) MEDICARE () PART A Apr 11, 2012 PART A [id number] [facility] [place],F RANK PATIENT MEDICARE (WNR) MEDICARE () PART A Apr 11, 2012 PART A [id number] [facility] [place],F RANK PATIENT MEDICARE (WNR) MEDICARE () PART A Apr 11, 2012 PART A [id number] Sae BLAND PATIENT MEDICARE (WNR) MEDICARE (M) PART A Apr 11, 2012 PART A [id number] [phone] Sae BLAND PATIENT Selected Encounter This section includes the information on record at [place] for the Encounter. Date/Time Encounter Type Encounter Description Reason Provider Source Aug 25, 2024 10:00 AM OFFICE O/P EST MOD 30 MIN DERMATOLOGY ICD-10-CM Z85.828 Personal history of other malignant neoplasm of skin NATIVIDAD ADHIKARI Prerna Encounter Template Text not used by [place] Assessments - Encounter Diagnoses This section includes the primary and secondary diagnoses documented for the Encounter. Date/Time Primary/Secondary Diagnosis Diagnosis Name Provider Source Aug 25, 2024 10:41 AM PRIMARY Personal history of other malignant neoplasm of skin MICAH ADHIKARI [facility] [place] [facility] Aug 25, 2024 10:41 AM SECONDARY Hemangioma of skin and subcutaneous [facility] [place] [facility] Aug 25, 2024 10:41 AM SECONDARY Nevus, non-neoplastic [facility] [place] [facility] Aug 25, 2024 10:41 AM SECONDARY Other melanin hyperpigmentation [facility] [place] [facility] Aug 25, 2024 10:41 AM SECONDARY Other seborrheic keratosis [facility] [place] [facility] Plan of Treatment: Future Appointments (+ 6 months) and Future Tests (+/- 45 days) The Plan of Treatment section includes future care activities for the patient from all [place] treatmentfacilities. This section includes future appointments and future orders which are active, pending or scheduled. Future Appointments This section includes appointments that were scheduled to occur 6 months from the date of the Encounter, up to a maximum of 20 appointments. The data comes from all [place] treatment facilities. Appointment Date/Time Appointment Type Appointme nt Facility Name Oct 05, 2024 01:30 PM AMBULATORY - MEDICINE [place] [facility] [place] [facility] Oct 09, 2024 02:00 PM AMBULATORY - REHAB MEDICIN E [place] [facility] [place] [facility] Oct 23, 2024 10:30 AM AMBULATORY - REHAB MEDICIN E [facility] [place] [facility] Nov 04, 2024 01:30 PM AMBULATORY - REHAB MEDICIN E [facility] [place] [facility] Nov 09, 2024 02:00 PM AMBULATORY - REHAB MEDICIN E [facility] [place] [facility] Nov 11, 2024 12:30 PM AMBULATORY - NONE [facility] Nov 11, 2024 12:30 PM AMBULATORY - PSYCHIATRY [facility] [place] [facility] Nov 25, 2024 03:00 PM AMBULATORY - MEDICINE [place] [facility] [place] [facility] Nov 27, 2024 09:30 AM AMBULATORY - MEDICINE [place] [facility] [place] [facility] Active, Pending, and Scheduled Orders This section includes a listing of several types of active, pending, and scheduled orders, including clinic medications orders, diagnostic test orders, procedure orders and consult orders; where the start date of the order is 45 days before the date of the Encounter or 45 days after the date of theEncounter. The data comes from all [place] treatment facilities. Test Date/Time Test Type Test Details Facility Name Oct 05, 2024 02:20 PM Consult Order VISN 1 [facility] NEUROPSYCHOLOGY IFC (PROV) Cons Casing [facility] [place] [facility] Oct 05, 2024 02:20 PM Consult Order REHAB MEDI CINE/[facility] OUTPT Cons Casing [facility] Social History: Smoking Status (Most current) and Tobacco Use (All prior to encounter date) This section includes the most current, and the historical, smoking and tobacco- related health factors from the [place] facility where the Encounter took place. Current Smoking Status This section includes the most current smoking, or tobacco-related health factor, from the [facility] facility where the Encounter took place. Date/Time Current Smoking Status Comment Bere stolly Dec 11, 2023 11:30 AM VA-TOBACCO FORMER USER [place] [facility] [place] [facility] Tobacco Use History This section includes a history of the smoking, or tobacco-related health factors, that were collected on or before the date of the Encounter. The data comes from the [place] facility where the Encounter took place. Date/Time Smoking Status/Tobac co Use Comment Facility Dec 11, 2023 11:30 AM VA-TOBACCO QUIT 15 YRS OR MORE [facility] [place] [facility] Dec 18, 2022 10:00 AM VA-TOBACCO FORMER USER [facility] [place] [facility] Dec 18, 2022 10:00 AM VA-TOBACCO QUIT 15 YRS OR MORE [facility] [place] [facility] Dec 06, 2021 09:30 AM VA-TOBACCO FORMER USER [facility] [place] [facility] Dec 06, 2021 09:30 AM VA-TOBACCO QUIT 15 YRS OR MORE [facility] [place] [facility] Nov 03, 2020 03:30 PM VA-TOBACCO FORMER USER [facility] [place] [facility] Nov 03, 2020 03:30 PM VA-TOBACCO QUIT 15 YRS OR MORE [facility] [place] [facility] Dec 04, 2019 10:30 AM VA-TOBACCO FORMER USER [facility] [place] [facility] Dec 04, 2019 10:30 AM VA-TOBACCO QUIT 15 YRS OR MORE [facility] [place] [facility] May 30, 2018 09:32 AM VA-TOBACCO FORMER USER [facility] [place] [facility] May 30, 2018 09:32 AM VA-TOBACCO QUIT 15 YRS OR MORE [facility] [place] [facility] Nov 29, 2017 09:01 AM VA-TOBACCO FORMER USER [facility] [place] [facility] Nov 29, 2017 09:01 AM VA-TOBACCO QUIT 15 YRS OR MORE [facility] [place] [facility] Dec 13, 2016 08:30 AM LIFETIME NON-TOBACCO USER [facility] [place] [facility] Jul 13, 2015 09:13 PM QUIT TOBACCO USE > 7 YEARS AGO . [facility] [place] [facility] Feb 15, 2009 09:19 AM QUIT TOBACCO USE > 7 YEARS AGO quit when he left service in 1968. [facility] [place] [facility] Encounter Notes: All associated encounter notes This section contains the clinical notes associated to the Encounter. Date/Time Encounter Note(s) Provider Source Aug 25, 2024 10:09 AM DERMATOLOGY OUTPATIENT NOTE: LOCAL TITLE: DERMATOLOGY CLINIC NOTE STANDARD TITLE: DERMATOLOGY OUTPATIENT NOTE DATE OF NOTE: AUG 25, 2024@10:09 ENTRY DATE: AUG 25, 2024@10:09:21 AUTHOR: TRINO ADHIKARI EXP COSIGNER: URGENCY: STATUS: COMPLETED AUG 25, 2024 SRAVANTHI BLAND Apr 77 PATIENT PHONE - Patient here for FOLLOW UP CHIEF COMPLAINT: h/o BCC HPI: Reviewed records from last Dermatology visit: 08/27/2023 [place] denies any new/changing/bleeding/non-heali ng lesions. REVIEW OF SYSTEMS: Constitutional-neg Skin/Hair/Nails-see HPI DermHx: -BCC, lower leg s/p excision >15 yrs ago per -[facility] s/p excision to L lateral elbow Family Hx: Denies known h/o MM PastMedHx: Reviewed History of Sun Exposure/Sunburns: Denies h/o blistering tadeo or tanning bed use. SocialHx: Upcoming cruise to [place] in Oct Active Outpatient Medications (including Supplies): Active Outpatient Medications Status 1) ATORVASTATIN CALCIUM 40MG TAB TAKE ONE-HALF TABLET BY MOUTH ACTIVE ONCE DAILY Indication: FOR HIGH CHOLESTEROL 2) CARBOXYMETHYLCELLULOSE NA 1% OPH GEL APPLY 1 DROP INTO EACH ACTIVE (S) EYE AT BEDTIME Indication: FOR DRY EYE 3) CYANOCOBALAMIN 1000MCG TAB TAKE ONE TABLET BY MOUTH ONCE ACTIVE DAILY Indication: FOR PREVENTION OF VITAMIN B12 DEFICIENCY 4) DEPEND UNDERWEAR,MAXIMUM,MEN SM/MED USE 1 BRIEF DIRECTED ACTIVE THREE TIMES A DAY Indication: INCONTINENCE 5) INCONT LINER,MALE GUARD MAX ABS ATTENDS USE 1 LINER ACTIVE TOPICALLY TWICE DAILY 6) LORAZEPAM 0.5MG TAB TAKE ONE TABLET BY MOUTH ONCE DAILY ACTIVE NEEDED Indication: FOR ANXIETY 7) MAGNESIUM OXIDE 420MG TAB TAKE ONE TABLET BY MOUTH ONCE ACTIVE DAILY Indication: FOR MAGNESIUM SUPPLEMENTATION 8) ZOLPIDEM TARTRATE 10MG TAB TAKE ONE TABLET BY MOUTH AT ACTIVE BEDTIME Indication: FOR SLEEP Active Non-VA Medications Status 1) Non-VA VIBEGRON 75MG TAB 75MG BY MOUTH ONCE DAILY ACTIVE 9 Total Medications PHYSICAL EXAM: Ramsey Skintype II General-AxOx3, NAD, pleasant, breathing unlabored, speech clear Cutaneous examination, as permitted by the patient, including scalp, face, eyes, ears, neck, chest, back, abdomen, arms, hands, fingers, lower legs Pertinent findings per below: -L lateral elbow with well healed surgical scar, NER -Multiple scattered stuck-on appearing waxy stiles and brown papules and plaques with noted milia-like cysts, comedo-like openings and fissures/ridges on dermoscopy. -Scattered uniformly pigmented light stiles and brown jagged macules in sun distributed areas. -Scattered amaro-red dome shaped papules on chest/back with noted lacunae and septae noted on dermoscopy -Multiple scattered symmetrical evenly pigmented brown macules and papules, most under 6mm. Diagnosis/Plan: #Personal History of Non-Melanotic Skin Cancer: -No evidence of recurrence at surgical site -Full Body Skin Exam advised at least yearly -Photoprotection discussed -Patient instructed to follow up in clinic for any concerning lesions or changes #Seborrheic Keratoses: -The was educated regarding the benign nature, but to return with any growth, change or symptoms in area. #Nevi: -ABCDEs of melanotic lesions discussed, self examinations encouraged -No concerning lesions today on examination -A full body skin check is recommended yearly -Photoprotection discussed. #Solar Lentigines -The was educated regarding the benign nature and relation to chronic sun exposure, but to return with any growth, change or symptoms in area. -Photoprotection discussed. #Amaro Angiomas: -The was educated regarding the benign nature, but to return with any growth, change or symptoms in area. RTC 1 yr, sooner PRN * educated to RTC esha if any new, changing, symptomatic lesions. * Education on sun protection and avoidance strategies was provided. * Differential diagnosis, prescription options and risks/benefits were discussed with the patient, who consented to treatment plan. * consented to photography for documentation if indicated. * A dermatoscope was used during the exam. * NUB = Neoplasm of Uncertain Behavior of Skin * NMSC = Nonmelanoma Skin Cancer * AK = Actinic Keratosis ------TIME ESTIMATION To include but not limied to: -Review of medical records -Time spent with patient including obtaining history, physical exam, shared decision making, procedures and counseling -Post visit documentation; HPI and physical exam findings, clinical researching, medical decision making, medication and lab ordering Total estimated time = 30 min -- Medication Reconciliation: Outpatient: Has the patient been taking medications as documented in the EMLR? YES: The patient has been taking medications as documented in the EMLR. Essential Medication List for Review used to complete this medication reconciliation. INCLUDED IN THIS LIST: Alphabetical list of active outpatient prescriptions dispensed from this [facility] (local) and dispensed from another [place] or [facility] facility (remote) as well as [...] whether with a VA or non-VA provider. JLV Link Data on this list may not be complete. Please check JLV. Allergies/ADRs (Tool #5) FACILITY ALLERGY/ADR -------- No Remote Allergy/ADR Data available for this patient [facility] [place] [facility] GABAPENTIN [facility] [place] INTRAVASC[facility] CONTR[facility]IA [facility] [place] [facility] METFORMIN [facility] MIRTAZAPINE [facility] ([facility] #1[facility] INCLUDED IN THIS LIST: Alphabetical list of active outpatient prescriptions dispensed from this [place] (local) and dispensed from another [place] or [facility] facility (remote) as well as inpatient orders (local pending and active), local clinic medications, locally documented non-VA medications, and local prescriptions that have or been discontinued in the past 90 days. Non-VA Meds Last Documented On: Apr 15, 2024 NOTE The display of VA prescriptions dispensed from another [place] or [facility] facility (remote) is limited to active outpatient prescription entries matched to National Drug File at the originating site and may not include some items such as investigational drugs, compounds, etc. NOT INCLUDED IN THIS LIST: Medications self-entered by the patient into personal health records (i.e. [employer]) are NOT included in this list. Non-VA medications documented outside this [place], remote inpatient orders (regardless of status) and remote clinic medications are NOT included in this list. The patient and provider must always discuss medications the patient is taking, regardless of where the medication was dispensed or obtained. OUTPT ATORVASTATIN CALCIUM 40MG TAB (Status = Active) TAKE ONE-HALF TABLET BY MOUTH ONCE DAILY Rx# [id number] Last Released: 04/16/24 Qty/Days Supply: Rx Expiration Date: 04/16/25 Refills Remainin Indication: FOR HIGH CHOLESTEROL OUTPT CARBOXYMETHYLCELLULOSE 0.5%(PF)OP RAZA UD (Status = ) INSTILL 1 DROP INTO EACH EYE EVERY 2 HOURS WHILE AWAKE Rx# [id number] Last Released: 05/28/24 Qty/Days Supply: Rx Expiration Date: 08/20/24 Refills Remainin Indication: FOR DRY EYE OUTPT CARBOXYMETHYLCELLULOSE NA 1% OPH GEL (Status = Active/Suspended) APPLY 1 DROP INTO EACH EYE AT BEDTIME FOR DRY EYE Rx# [id number] Last Released: 06/05/24 Qty/Days Supply: Rx Expiration Date: 12/27/24 Refills Remainin Indication: FOR DRY EYE OUTPT CYANOCOBALAMIN 1000MCG TAB (Status = Active) TAKE ONE TABLET BY MOUTH ONCE DAILY FOR PREVENTION OF VITAMIN B12 DEFICIENCY Rx# [id number] Last Released: 01/22/24 Qty/Days Supply: Rx Expiration Date: 01/21/25 Refills Remainin Indication: FOR PREVENTION OF VITAMIN B12 DEFICIENCY OUTPT LORAZEPAM 0.5MG TAB (Status = Active) TAKE ONE TABLET BY MOUTH ONCE DAILY NEEDED Rx# [id number] Last Released: 08/04/24 Qty/Days Supply: Rx Expiration Date: 01/31/25 Refills Remainin Indication: FOR ANXIETY OUTPT MAGNESIUM OXIDE 420MG TAB (Status = Active) TAKE ONE TABLET BY MOUTH ONCE DAILY FOR MAGNESIUM SUPPLEMENTATION Rx# [id number] Last Released: 01/22/24 Qty/Days Supply: Rx Expiration Date: 01/21/25 Refills Remainin Indication: FOR MAGNESIUM SUPPLEMENTATION Non-VA VIBEGRON 75MG TAB TAKE ONE TABLET BY MOUTH ONCE DAILY OUTPT ZOLPIDEM TARTRATE 10MG TAB (Status = Active) TAKE ONE TABLET BY MOUTH AT BEDTIME Rx# [id number] Last Released: 07/14/24 Qty/Days Supply: Rx Expiration Date: 12/04/24 Refills Remainin Indication: FOR SLEEP SUPPLIES OUTPT DEPEND UNDERWEAR,MAXIMUM,MEN SM/MED (Status = Active) USE 1 BRIEF DIRECTED THREE TIMES A DAY INCONTINENCE Rx# [id number] Last Released: 12/11/23 Qty/Days Supply: 304/90 Rx Expiration Date: 12/05/24 Refills Remainin Indication: INCONTINENCE OUTPT INCONT LINER,MALE GUARD MAX ABS ATTENDS (Status = Active) USE 1 LINER TOPICALLY TWICE DAILY Rx# [id number] Last Released: 04/18/24 Qty/Days Supply: 120/90 Rx Expiration Date: 04/16/25 Refills Remainin /zoë/ TRINO ADHIKARI DNP, CONSUMER CREDIT COUNSELOR-C NURSE PRACTITIONER Signed: 08/25/2024 10:41 TRINO ADHIKARI [facility] [place] [facility]
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
--- OUTSIDE RECORDS SUMMARY | 2024-10-14 10:56 | XMS_ITS | Continuity of Care Document ---
Author Name [facility] Organization [facility] Care Team Providers Care Corporate Director Name Role Phone [facility] Unavailable Unavailable Problems Combined list of problems from Department of Defense and Veterans Affairs facilities. It does not include entries that were removed or entered in error. Problem Status Onset Date Problem Type Date of Resolution Comments Source [place] Active Condition [facility] Elevated PSA Active Condition [facility] Esophageal stricture Active Condition June 21, 2017 Entered By: MARY STODDARD Comment: s/p balloon dilatation in March 2017 [facility] Exposure to potentially hazardous substance Active Condition [facility] Hearing Loss Active Condition [facility] Hyperlipidemia (SNOMED CT 24025802) Active Condition [facility] Liver cyst Active Condition Oct 04 Entered By: VINICIO KARIMI Comment: due for [facility] 2023 Entered By: VINICIO KARIMI Comment: left hepatic lobe incompletely septated 2.7 cm complex cyst [facility] Meralgia paresthetica Active Condition Oct 01, 2012 Entered By: MARY STODDARD Comment: ON NERVE CONDUCTION STUDY AT [facility] Meralgia paresthetica (ICD-9-CM 355.1) Active Condition [facility] Posttraumatic stress disorder (SNOMED CT 39830837) Active Condition [facility] Spinal stenosis in cervical region Active Condition [facility] Thyroid nodule Active Condition Nov 132023 Entered By: ESTEFANY OVERTON Comment: left thyroid nodule, stable over years [facility] Type 2 diabetes mellitus (SNOMED CT 96759574) Active Condition [facility] Family Circumstances NEC Inactive Condition 07/13/2015 [facility] Lumbar Radiculopathy (ICD-9-CM 724.4) Inactive Condition 01/15/2013 [facility] Diagnosis: ICD-10-CM M54.2 Cervicalgia Active Diagnosis [facility] Diagnosis: ICD-10-CM Z85.828 Personal history of other malignant neoplasm of skin Active Diagnosis [facility] Diagnosis: ICD-10-CM 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 [facility] Diagnosis: ICD-10-CM H53.2 Diplopia Active Diagnosis [facility] Diagnosis: ICD-10-CM H40.013 Open angle with borderline findings, low risk, bilateral Active Diagnosis [facility] Diagnosis: ICD-10-CM 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 Active Diagnosis [facility] Diagnosis: ICD-10-CM Z46.0 Encounter for fit/adjst of spectacles and contact lenses Active Diagnosis [facility] Diagnosis: ICD-10-CM Z46.1 Encounter for fitting and adjustment of hearing aid Active Diagnosis [facility] Diagnosis: ICD-10-CM R39.81 Functional urinary incontinence Active Diagnosis [facility] Diagnosis: ICD-10-CM Z63.0 Problems in relationship with spouse or partner Active Diagnosis [facility] Diagnosis: ICD-10-CM R32 Unspecified urinary incontinence Active Diagnosis [facility] Diagnosis: ICD-10-CM E11.9 Type 2 diabetes mellitus without complications Active Diagnosis [facility] Diagnosis: ICD-10-CM Z77.29 Contact with and exposure to other hazardous substances Active Diagnosis [facility] Diagnosis: ICD-10-CM R97.20 Elevated prostate specific antigen [PSA] Active Diagnosis [facility] Diagnosis: ICD-10-CM F43.10 Post-traumatic stress disorder, unspecified Active Diagnosis [facility] Medications Combined list of outpatient medications from Department of Defense and Veterans Affairs facilities.Medications provided include 1) outpatient medications from the last 15 months, and 2) patient-reported medications. Medication Details Route Status Patient Instructions Prescription Expires Prescription Number Last Dispense Date Ordering Provider Order Date Order Qty Source ATORVASTATI N CA 20MG TAB TAKE ONE-HALF TABLET BY MOUTH ONCE DAILY FOR HIGH CHOLESTE ROL ORAL DISCONT INUED (EDIT) 04/16/2024 [id number] CHRISTIANA STODDARD JAWED 2023 45 [facility] ATORVASTATI N CA 40MG TAB TAKE ONE-HALF TABLET BY MOUTH ONCE DAILY ORAL ACTIVE 04/16/2025 [id number] FURCOLO,T ELIZABET 2024 45 [facility] CARBOXYMETH YLCELLULOSE NA 0.5% (PF) SOLN,OPH,UD INSTILL 1 DROP INTO EACH EYE EVERY 2 HOURS WHILE AWAKE OPHTHA LMIC 08/20/2024 [id number] LUZ MARIA VERNON EY J 2023 100 [facility] CARBOXYMETH YLCELLULOSE NA 1% GEL,OPH APPLY 1 DROP INTO EACH EYE AT BEDTIME FOR DRY EYE OPHTHA LMIC ACTIVE 12/27/2024 [id number] LUZ MARIA VERNON EY J 2023 15 [facility] CYANOCOBALA MIN 1000MCG TAB TAKE ONE TABLET BY MOUTH ONCE DAILY FOR PREVENTI ON OF VITAMIN B12 DEFICIEN CY ORAL ACTIVE 01/21/2025 [id number] FURCOLO,T ELIZABET 2023 90 [facility] CYCLOBENZAP RINE HCL 10MG TAB TAKE ONE TABLET BY MOUTH AT BEDTIME FOR MUSCLE SPASM ORAL ACTIVE 11/04/2024 [id number] 5 FURCOLO,T ELIZABET 2024 21 [facility] LIDOCAINE 5% PATCH APPLY 1 PATCH TOPICALL Y ONCE DAILY FOR NERVE PAIN (LEAVE PATCH ON FOR 12 HOURS, THEN REMOVE PATCH) TOPICA L ACTIVE 01/03/2025 [id number] FURCOLO,T ELIZABET 2024 90 [facility] LORAZEPAM 0.5MG TAB TAKE ONE TABLET BY MOUTH ONCE DAILY NEEDED ORAL ACTIVE 01/31/2025 [id number] FURCOLO,T ELIZABET 2024 30 [facility] LORAZEPAM 0.5MG TAB TAKE ONE TABLET BY MOUTH ONCE DAILY NEEDED ORAL 04/18/2024 [id number] FURCOLO,T ELIZABET 2024 30 [facility] LORAZEPAM 0.5MG TAB TAKE ONE TABLET BY MOUTH ONCE DAILY NEEDED FOR ANXIETY ORAL 11/20/2023 [id number] FURCOLO,T ELIZABET 2023 30 [facility] MAGNESIUM OXIDE 420MG TAB TAKE ONE TABLET BY MOUTH ONCE DAILY FOR MAGNESIU M SUPPLEME NTATION ORAL ACTIVE 01/21/2025 [id number] 4 FURCOLO,T ELIZABET 2023 90 [facility] MINERAL OIL,LIGHT/P ETROLATUM (PF) OINT,OPH APPLY THIN RIBBON INTO EACH EYE TWICE DAILY OPHTHA LMIC DISCONT INUED BY PROVIDE R 11/08/2024 [id number] VERNON,LAC EY J 2023 2 [facility] OXYBUTYNIN CL 15MG TAB,SA TAKE ONE TABLET BY MOUTH ONCE DAILY FOR BLADDER INSTABIL ITY ORAL DISCONT INUED BY PROVIDE R 11/07/2024 [id number] FURCOLO,T ELIZABET 2023 90 [facility] VIBEGRON 75MG TAB TAKE ONE TABLET BY MOUTH ONCE DAILY ORAL ACTIVE FURCOLO,T ELIZABET 2024 [facility] ZOLPIDEM TARTRATE 10MG TAB TAKE ONE TABLET BY MOUTH AT BEDTIME ORAL ACTIVE 12/04/2024 [id number] FURCOLO,T ELIZABET 2024 15 [facility] ZOLPIDEM TARTRATE 10MG TAB TAKE ONE TABLET BY MOUTH AT BEDTIME FOR SLEEP ORAL 05/13/2024 [id number] FURCOLO,T ELIZABET 2023 15 [facility] Allergies, Adverse Reactions, Alerts Combined list of allergies from Department of Defense and Veterans Affairs facilities. It does not include entries that were removed or entered in error. Substance Category Reaction Severity Reaction type Status Date Reported Comments Source GABAPENTIN Propensity to adverse reactions to drug (finding) Lip swelling MILD active 7 [facility] INTRAVASCULA R CONTRAST MEDIA Propensity to adverse reactions to drug (finding) Urticaria active 0 [facility] METFORMIN Propensity to adverse reactions to drug (finding) Cramp, Palpitation s, Gastroesoph ageal reflux disease active 2 [facility] MIRTAZAPINE Propensity to adverse reactions to drug (finding) Pain in eye active 1 [facility] Immunizations Combined list of available immunizations from the Department of [facility] and Veterans Affairs facilities. Immunization Series Date Given Administered By Site Reaction Lot Number CVX Code Drug Environmental Projects Advisor Status Comments Source INFLUENZA, UNSPECIFIED FORMULATION 2023 88 complet ed Booster for Series, HISTORICA L INFORMATI ON - FROM OTHER PROVIDER, [facility] COVID-19 (MODERNA), MRNA, LNP-S, PF, 50 MCG/0.5 ML (AGES 12+ YEARS) 1 2022 HAILEY GARCIA E LEFT DELTO ID [id number] 312 complet ed [place], [facility] INFLUENZA, UNSPECIFIED FORMULATION 2022 88 complet ed Booster for Series, HISTORICA L INFORMATI ON - FROM OTHER PROVIDER, [facility] COVID-19, MRNA, LNP-S, BIVALENT BOOSTER, PF, 50 MCG/0.5 ML OR 25MCG/0.25 ML DOSE 1 2021 229 complet ed [facility] INFLUENZA, UNSPECIFIED FORMULATION 2021 88 complet ed [facility] COVID-19 (PFIZER), MRNA, LNP-S, PF, 30 MCG/0.3 ML DOSE, TONIO-SUCROSE (AGES 12+ YEARS) 4 2021 217 complet ed [facility] ZOSTER RECOMBINANT 1 2021 187 complet ed [facility] TDAP 2020 115 complet ed [facility] COVID-19 (MODERNA), MRNA, LNP-S, PF, 100 MCG OR 50 MCG DOSE 3 2020 207 complet ed [facility] INFLUENZA, UNSPECIFIED FORMULATION 2020 88 complet ed [facility] INFLUENZA, UNSPECIFIED FORMULATION 2020 88 complet ed [facility] COVID-19 (MODERNA), MRNA, LNP-S, PF, 100 MCG/0.5 ML DOSE 2 2020 207 complet ed MOD; [id number]; 1 [facility] COVID-19 (MODERNA), MRNA, LNP-S, PF, 100 MCG/0.5 ML DOSE 1 2020 207 complet ed MOD; [id number]; 1 [facility] INFLUENZA, HIGH-DOSE, QUADRIVALENT 2019 197 complet ed HISTORICA L INFORMATI ON - FROM OTHER PROVIDER, Partner: [facility]. Administe red by: [facility] Clinician (NPI=Not Provided) . Partner 0 Lot#: [id number] Mfr: sanFeeding Forward pasteur; Dosage: [id number] ml [facility] ZOSTER RECOMBINANT 2 2018 187 complet ed yes [facility] INFLUENZA, SEASONAL, INJECTABLE 2018 141 complet ed [facility] ZOSTER RECOMBINANT 1 2018 187 complet ed yes [facility] INFLUENZA, INJECTABLE, QUADRIVALENT, PRESERVATIVE FREE 2017 150 complet ed 02, Partner: [facility]. Administe red by: [facility] Clinician (NPI=Not Provided) . Partner 0 Lot#: [id number] Mfr: GlaxoSmit hKline [facility] INFLUENZA, SEASONAL, INJECTABLE 2016 141 complet ed Site: Left Deltoid [facility] FLU,3 YRS (HISTORICAL) 2015 88 complet ed Site: Left Deltoid [facility] PNEUMOCOCCAL CONJUGATE PCV 13 2014 133 complet ed yes [facility] TDAP 2014 115 complet ed [facility] FLU,3 YRS (HISTORICAL) 2014 88 complet ed Site: Left Deltoid [facility] ZOSTER (HISTORICAL) 2014 121 complet ed [facility] FLU,3 YRS (HISTORICAL) 2013 88 complet ed Site: Right Deltoid [facility] FLU,3 YRS (HISTORICAL) 2012 88 complet ed [facility] PNEUMOCOCCAL POLYSACCHARID E PPV23 2012 33 complet ed [facility] FLU,3 YRS (HISTORICAL) 2011 88 complet ed [facility] FLU,3 YRS (HISTORICAL) 2010 88 complet ed [facility] FLU,3 YRS (HISTORICAL) 2008 88 complet ed [facility] PNEUMOCOCCAL, UNSPECIFIED FORMULATION 2008 109 complet ed [facility] TD(ADULT) UNSPECIFIED FORMULATION 2008 139 complet ed [facility] FLU,3 YRS (HISTORICAL) 2002 SURI KOCH P 88 complet ed [facility] Results Combined list of recent chemistry, hematology and other laboratory results from Department of Defense and Veterans Affairs, ranging from 15 months to all on record, depending upon the facility. Order Name Results Value Reference Range Date Interpretation Specimen Comments Source PSA PROSTATE SPECIFIC AG [MASS/VOLU ME] IN SERUM OR PLASMA BY IMMUNOASSA Y 3.4 ng/mL 0 - 4 07/13 Specimen Type: SERUM No comment entered. Ordering Provider: MAXI OVERTON Report Released Date/Time: Apr 15, 2024 10:41 AM Reporting Lab: [facility] [place] [facility] [address] [facility] [phone] Performing Lab: [facility] [place] [facility] [address] [facility] [phone] [facility] LIPID PANEL FASTING CHOLESTERO L [MASS/VOLU ME] IN SERUM OR PLASMA 239 mg/dL 04/01 H Specimen Type: SERUM No comment entered. Ordering Provider: MAXI OVERTON Report Released Date/Time: Oct 15, 2023 09:38 AM Reporting Lab: [facility] [place] [facility] [address] [facility] [phone] Performing Lab: [facility] [place] [facility] [address] [facility] [address] [facility] LIPID PANEL FASTING TRIGLYCERI DE [MASS/VOLU ME] IN SERUM OR PLASMA 63 mg/dL 0 - 150 04/01 Specimen Type: SERUM No comment entered. Ordering Provider: MAXI OVERTON Report Released Date/Time: Oct 15, 2023 09:38 AM Reporting Lab: [facility] [place] [facility] [address] [facility] [phone] Performing Lab: [facility] [place] [facility] [address] [facility] [phone] [facility] LIPID PANEL FASTING CHOLESTERO L IN LDL [MASS/VOLU ME] IN SERUM OR PLASMA BY FERNANDO Amin 144 mg/dL 0 - 129 04/01 H Specimen Type: SERUM No comment entered. Ordering Provider: MAXI OVERTON Report Released Date/Time: Oct 15, 2023 09:38 AM Reporting Lab: [facility] [place] [facility] [address] [facility] [address] Performing Lab: [place] [facility] [address] [facility] [address] [facility] LIPID PANEL FASTING CHOLESTERO L.TOTAL/CH OLESTEROL IN HDL [MASS RATIO] IN SERUM OR PLASMA 2.9 04/01 Specimen Type: SERUM No comment entered. Ordering Provider: MAXI OVERTON Report Released Date/Time: Oct 15, 2023 09:38 AM Reporting Lab: [facility] [place] [facility] [address] [facility] [phone] Performing Lab: [place] [facility] [address] [facility] [phone] [facility] LIPID PANEL FASTING CHOLESTERO L IN HDL [MASS/VOLU ME] IN SERUM OR PLASMA 82 mg/dL 40 - 60 04/01 H Specimen Type: SERUM No comment entered. Ordering Provider: MAXI OVERTON Report Released Date/Time: Oct 15, 2023 09:38 AM Reporting Lab: [facility] [place] [facility] [address] [facility] [phone] Performing Lab: [place] [facility] [place] [address] [address] [facility] BASIC METABOLI C PANEL (fasting ) UREA NITROGEN [MASS/VOLU ME] IN SERUM OR PLASMA 15 mg/dL 7 - 25 04/01 Specimen Type: SERUM No comment entered. Ordering Provider: MAXI OVERTON Report Released Date/Time: Oct 15, 2023 09:38 AM Reporting Lab: [facility] [place] [facility] [address] [facility] [phone] Performing Lab: [place] [facility] [place] [facility] [address] [facility] [address] [facility] [place] BASIC METABOLI C PANEL (fasting ) GLUCOSE [MASS/VOLU ME] IN SERUM OR PLASMA 136 mg/dL 65 - 100 04/01 H Specimen Type: SERUM No comment entered. Ordering Provider: MAXI OVERTON Report Released Date/Time: Oct 15, 2023 09:38 AM Reporting Lab: [facility] [place] [facility] [address] [facility] [address] Performing Lab: [facility] [address] [facility] BASIC METABOLI C PANEL (fasting ) SODIUM [MOLES/VOL UME] IN SERUM OR PLASMA 142 mmol/L 135 - 145 04/01 Specimen Type: SERUM No comment entered. Ordering Provider: MAXI OVERTON Report Released Date/Time: Oct 15, 2023 09:38 AM Reporting Lab: [facility] [address] [address] Performing Lab: [place] [facility] [address] [address] [facility] BASIC METABOLI C PANEL (fasting ) POTASSIUM [MOLES/VOL UME] IN SERUM OR PLASMA 4.1 mmol/L 3.5 - 5.0 04/01 Specimen Type: SERUM No comment entered. Ordering Provider: MAXI OVERTON Report Released Date/Time: Oct 15, 2023 09:38 AM Reporting Lab: [facility] [place] [address] [address] Performing Lab: [place] [facility] [place] [address] [address] [facility] BASIC METABOLI C PANEL (fasting ) CHLORIDE [MOLES/VOL UME] IN SERUM OR PLASMA 105 mmol/L 100 - 110 04/01 Specimen Type: SERUM No comment entered. Ordering Provider: MAXI OVERTON Report Released Date/Time: Oct 15, 2023 09:38 AM Reporting Lab: [facility] [place] [facility] [address] [facility] [phone] Performing Lab: [facility] [place] [facility] [address] [facility] [address] [facility] BASIC METABOLI C PANEL (fasting ) CARBON DIOXIDE, TOTAL [MOLES/VOL UME] IN SERUM OR PLASMA 27 meq/L 20 - 30 04/01 Specimen Type: SERUM No comment entered. Ordering Provider: MAXI OVERTON Report Released Date/Time: Oct 15, 2023 09:38 AM Reporting Lab: [facility] [place] [facility] [address] [facility] [phone] Performing Lab: [place] [facility] [address] [address] [facility] [place] [facility] BASIC METABOLI C PANEL (fasting ) CALCIUM [MASS/VOLU ME] IN SERUM OR PLASMA 9.6 mg/dL 8.5 - 10.2 04/01 Specimen Type: SERUM No comment entered. Ordering Provider: MAXI OVERTON Report Released Date/Time: Oct 15, 2023 09:38 AM Reporting Lab: [facility] [place] [address] [address] Performing Lab: [facility] [place] [facility] [address] [facility] [address] [facility] [place] [facility] BASIC METABOLI C PANEL (fasting ) CREATININE [MASS/VOLU ME] IN SERUM OR PLASMA 0.80 mg/dL 0.50 - 1.40 04/01 Specimen Type: SERUM No comment entered. Ordering Provider: MAXI OVERTON Report Released Date/Time: Oct 15, 2023 09:38 AM Reporting Lab: [facility] [place] [address] [address] Performing Lab: [facility] [place] [address] [address] [facility] BASIC METABOLI C PANEL (fasting ) GLOMERULAR FILTRATION RATE/1.73 SQ M.PREDICTE D [VOLUME RATE/AREA] IN SERUM, PLASMA OR BLOOD BY CREATININE -BASED FORMULA (CKD-EPI 2020) >90mL/mi n 60 04/01 Specimen Type: SERUM No comment entered. Ordering Provider: MAXI OVERTON Report Released Date/Time: Oct 15, 2023 09:38 AM Reporting Lab: [place] [facility] [place] [address] Performing Lab: [facility] [address] [facility] HEMOGLOB IN A1C PANEL HEMOGLOBIN A1C/HEMOGL OBIN.TOTAL IN BLOOD BY HPLC 6.1 4.0 - 5.6 04/01 H Specimen Type: BLOOD Comment: Values obtained from A1C measurement s can vary. For atypical A1C assays, a reported value of 7.0 could actually be between 6.72 and 7.28 if measured by a reference method. A reported value of 9.0 could actually be between 8.73 and 9.27. Ref: http://www. ngsp.org/[place] Pdata.asp Ordering Provider: MAXI OVERTON Report Released Date/Time: Oct 15, 2023 09:43 AM Reporting Lab: [facility] [address] [address] Performing Lab: [facility] [address] [address] [facility] MICROALB UMIN CREATINI NE RATIO PANEL MICROALBUM IN/CREATIN INE [MASS RATIO] IN URINE 6.0 mg/g 0 - 29.9 04/01 Specimen Type: URINE No comment entered. Ordering Provider: MAXI OVERTON Report Released Date/Time: Oct 15, 2023 09:43 AM Reporting Lab: [facility] [address] [address] Performing Lab: [facility] [address] [address] [facility] MICROALB UMIN CREATINI NE RATIO PANEL MICROALBUM IN [MASS/VOLU ME] IN URINE 1.3 mg/dL 04/01 Specimen Type: URINE No comment entered. Ordering Provider: MAXI OVERTON Report Released Date/Time: Oct 15, 2023 09:43 AM Reporting Lab: [facility] [place] [address] [address] Performing Lab: [facility] [place] [address] [address] [facility] [place] [facility] MICROALB UMIN CREATINI NE RATIO PANEL CREATININE [MASS/VOLU ME] IN URINE 217.54 mg/dL 04/01 Specimen Type: URINE No comment entered. Ordering Provider: MAXI OVERTON Report Released Date/Time: Oct 15, 2023 09:43 AM Reporting Lab: [facility] MAS[facility]SE[address] [address] Performing Lab: [facility]TRN [facility]USE[address] [address] [facility] PSA PROSTATE SPECIFIC AG [MASS/VOLU ME] IN SERUM OR PLASMA 3.98 ng/mL 0.00 - 4.00 04/01 Specimen Type: SERUM No comment entered. Ordering Provider: MAXI OVERTON Report Released Date/Time: Mar 19, 2024 08:20 AM Reporting Lab: [facility] [id number] [address] Performing Lab: [facility] TRN [id number] [address] [facility] DRUGS OF ABUSE AMPHETAMIN ES [PRESENCE] IN URINE NONE-DET ECTED - 1000 10/21 Specimen Type: URINE Comment: Urine with Cr <5 is diluted or substituted . Cr between 5 and 20 is very dilute. Urine with SG of 1.001 or less is diluted or substituted . SG of 1.003 or less is very dilute. Urine with a pH <3 or >11 has been adulterated and is unsuitable for testing by our current method. Urine with pH between 3 and 4 OR 10 and 11 may have been adulterated . FENTANYL CONFIRMATIO N NOT SENT BY LAB. Ordering Provider: MAXI OVERTON Report Released Date/Time: Oct 21, 2023 01:38 PM Reporting Lab: [facility] [address] [address] Performing Lab: [address] [address] [facility] DRUGS OF ABUSE [place] [PRESENCE] IN URINE BY SCREEN METHOD NONE-DET ECTED - 200 10/21 Specimen Type: URINE Comment: Urine with Cr <5 is diluted or substituted . Cr between 5 and 20 is very dilute. Urine with SG of 1.001 or less is diluted or substituted . SG of 1.003 or less is very dilute. Urine with a pH <3 or >11 has been adulterated and is unsuitable for testing by our current method. Urine with pH between 3 and 4 OR 10 and 11 may have been adulterated . FENTANYL CONFIRMATIO N NOT SENT BY LAB. Ordering Provider: MAXI OVERTON Report Released Date/Time: Oct 21, 2023 01:38 PM Reporting Lab[facility] [address] [address] Performing Lab: [address] [address] [facility] DRUGS OF ABUSE COCAINE [PRESENCE] IN URINE BY SCREEN METHOD NONE-DET ECTED - 300 10/21 Specimen Type: URINE Comment: Urine with Cr <5 is diluted or substituted . Cr between 5 and 20 is very dilute. Urine with SG of 1.001 or less is diluted or substituted . SG of 1.003 or less is very dilute. Urine with a pH <3 or >11 has been adulterated and is unsuitable for testing by our current method. Urine with pH between 3 and 4 OR 10 and 11 may have been adulterated . FENTANYL CONFIRMATIO N NOT SENT BY LAB. Ordering Provider: MAXI OVERTON Report Released Date/Time: Oct 21, 2023 01:38 PM Reporting Lab: [address] [address] Performing Lab: [address] [address] [facility] DRUGS OF ABUSE OPIATES [PRESENCE] IN URINE BY SCREEN METHOD NONE-DET ECTED - 300 10/21 Specimen Type: URINE Comment: Urine with Cr <5 is diluted or substituted . Cr between 5 and 20 is very dilute. Urine with SG of 1.001 or less is diluted or substituted . SG of 1.003 or less is very dilute. Urine with a pH <3 or >11 has been adulterated and is unsuitable for testing by our current method. Urine with pH between 3 and 4 OR 10 and 11 may have been adulterated . FENTANYL CONFIRMATIO N NOT SENT BY LAB. Ordering Provider: MAXI OVERTON Report Released Date/Time: Oct 21, 2023 01:38 PM Reporting Lab: [address] [address] Performing Lab: [address] [address] [facility] DRUGS OF ABUSE CANNABINOI DS [PRESENCE] IN URINE BY SCREEN METHOD POSITIVE - 50 10/21 Specimen Type: URINE Comment: Urine with Cr <5 is diluted or substituted . Cr between 5 and 20 is very dilute. Urine with SG of 1.001 or less is diluted or substituted . SG of 1.003 or less is very dilute. Urine with a pH <3 or >11 has been adulterated and is unsuitable for testing by our current method. Urine with pH between 3 and 4 OR 10 and 11 may have been adulterated . FENTANYL CONFIRMATIO N NOT SENT BY LAB. Ordering Provider: MAXI OVERTON Report Released Date/Time: Oct 21, 2023 01:38 PM Reporting Lab: [address] [address] Performing Lab: [address] [address] [facility] DRUGS OF ABUSE BARBITURAT ES [PRESENCE] IN URINE BY SCREEN METHOD NONE-DET ECTED - 200 10/21 Specimen Type: URINE Comment: Urine with Cr <5 is diluted or substituted . Cr between 5 and 20 is very dilute. Urine with SG of 1.001 or less is diluted or substituted . SG of 1.003 or less is very dilute. Urine with a pH <3 or >11 has been adulterated and is unsuitable for testing by our current method. Urine with pH between 3 and 4 OR 10 and 11 may have been adulterated . FENTANYL CONFIRMATIO N NOT SENT BY LAB. Ordering Provider: MAXI OVERTON Report Released Date/Time: Oct 21, 2023 01:38 PM Reporting Lab: [address] [address] Performing Lab: [address] [address] [facility] DRUGS OF ABUSE OXYCODONE [PRESENCE] IN URINE BY SCREEN METHOD NONE-DET ECTED - 100 10/21 Specimen Type: URINE Comment: Urine with Cr <5 is diluted or substituted . Cr between 5 and 20 is very dilute. Urine with SG of 1.001 or less is diluted or substituted . SG of 1.003 or less is very dilute. Urine with a pH <3 or >11 has been adulterated and is unsuitable for testing by our current method. Urine with pH between 3 and 4 OR 10 and 11 may have been adulterated . FENTANYL CONFIRMATIO N NOT SENT BY LAB. Ordering Provider: MAXI OVERTON Report Released Date/Time: Oct 21, 2023 01:38 PM Reporting Lab: [facility] [place] [address] [address] Performing Lab: [facility] [address] [address] [facility] DRUGS OF ABUSE BUPRENORPH INE [PRESENCE] IN URINE NONE-DET ECTED 10/21 Specimen Type: URINE Comment: Urine with Cr <5 is diluted or substituted . Cr between 5 and 20 is very dilute. Urine with SG of 1.001 or less is diluted or substituted . SG of 1.003 or less is very dilute. Urine with a pH <3 or >11 has been adulterated and is unsuitable for testing by our current method. Urine with pH between 3 and 4 OR 10 and 11 may have been adulterated . FENTANYL CONFIRMATIO N NOT SENT BY LAB. Ordering Provider: MAXI OVERTON Report Released Date/Time: Oct 21, 2023 01:38 PM Reporting Lab: [address] [address] Performing Lab: [address] [address] [facility] DRUGS OF ABUSE ETHANOL [MASS/VOLU ME] IN URINE NONE-DET ECTEDmg/ dL - 10 10/21 Specimen Type: URINE Comment: Urine with Cr <5 is diluted or substituted . Cr between 5 and 20 is very dilute. Urine with SG of 1.001 or less is diluted or substituted . SG of 1.003 or less is very dilute. Urine with a pH <3 or >11 has been adulterated and is unsuitable for testing by our current method. Urine with pH between 3 and 4 OR 10 and 11 may have been adulterated . FENTANYL CONFIRMATIO N NOT SENT BY LAB. Ordering Provider: MAXI OVERTON Report Released Date/Time: Oct 21, 2023 01:38 PM Reporting Lab: [address] [address] Performing Lab: [address] [address] [facility] DRUGS OF ABUSE FENTANYL [PRESENCE] IN URINE BY SCREEN METHOD NONE-DET ECTEDng/ mL 10/21 Specimen Type: URINE Comment: Urine with Cr <5 is diluted or substituted . Cr between 5 and 20 is very dilute. Urine with SG of 1.001 or less is diluted or substituted . SG of 1.003 or less is very dilute. Urine with a pH <3 or >11 has been adulterated and is unsuitable for testing by our current method. Urine with pH between 3 and 4 OR 10 and 11 may have been adulterated . FENTANYL CONFIRMATIO N NOT SENT BY LAB. Ordering Provider: MAXI OVERTON Report Released Date/Time: Oct 21, 2023 01:38 PM Reporting Lab: [address] [address] Performing Lab: [address] [address] [facility] DRUGS OF ABUSE PH OF URINE 6.3 [pH] 4 - 10 10/21 Specimen Type: URINE Comment: Urine with Cr <5 is diluted or substituted . Cr between 5 and 20 is very dilute. Urine with SG of 1.001 or less is diluted or substituted . SG of 1.003 or less is very dilute. Urine with a pH <3 or >11 has been adulterated and is unsuitable for testing by our current method. Urine with pH between 3 and 4 OR 10 and 11 may have been adulterated . FENTANYL CONFIRMATIO N NOT SENT BY LAB. Ordering Provider: MAXI OVERTON Report Released Date/Time: Oct 21, 2023 01:38 PM Reporting Lab: [address] [address] Performing Lab: [address] [address] [facility] DRUGS OF ABUSE CREATININE [MASS/VOLU ME] IN URINE 203.20 mg/dL 10/21 Specimen Type: URINE Comment: Urine with Cr <5 is diluted or substituted . Cr between 5 and 20 is very dilute. Urine with SG of 1.001 or less is diluted or substituted . SG of 1.003 or less is very dilute. Urine with a pH <3 or >11 has been adulterated and is unsuitable for testing by our current method. Urine with pH between 3 and 4 OR 10 and 11 may have been adulterated . FENTANYL CONFIRMATIO N NOT SENT BY LAB. Ordering Provider: MAXI OVERTON Report Released Date/Time: Oct 21, 2023 01:38 PM Reporting Lab: [address] [address] Performing Lab: [address] [address] [facility] DRUGS OF ABUSE SPECIFIC GRAVITY OF URINE 1.020 1.003 - 1.020 10/21 Specimen Type: URINE Comment: Urine with Cr <5 is diluted or substituted . Cr between 5 and 20 is very dilute. Urine with SG of 1.001 or less is diluted or substituted . SG of 1.003 or less is very dilute. Urine with a pH <3 or >11 has been adulterated and is unsuitable for testing by our current method. Urine with pH between 3 and 4 OR 10 and 11 may have been adulterated . FENTANYL CONFIRMATIO N NOT SENT BY LAB. Ordering Provider: MAXI OVERTON Report Released Date/Time: Oct 21, 2023 01:38 PM Reporting Lab: [facility] [address] Performing Lab: [facility] [address] [address] [facility] BASIC METABOLI C PANEL (fasting ) UREA NITROGEN [MASS/VOLU ME] IN SERUM OR PLASMA 16 mg/dL 7 - 25 09/29 Specimen Type: SERUM No comment entered. Ordering Provider: VIOLA STODDARD Report Released Date/Time: Apr 16, 2023 09:25 AM Reporting Lab: [facility]USE[address] [address] Performing Lab: [facility] [address] [facility]ITALTRN [facility]ITALUSE [facility] BASIC METABOLI C PANEL (fasting ) GLUCOSE [MASS/VOLU ME] IN SERUM OR PLASMA 107 mg/dL 65 - 100 09/29 H Specimen Type: SERUM No comment entered. Ordering Provider: VIOLA STODDARD Report Released Date/Time: Apr 16, 2023 09:25 AM Reporting Lab: [facility] [place] [address] [address] Performing Lab: [facility] [address] [address] [facility] BASIC METABOLI C PANEL (fasting ) SODIUM [MOLES/VOL UME] IN SERUM OR PLASMA 140 mmol/L 135 - 145 09/29 Specimen Type: SERUM No comment entered. Ordering Provider: VIOLA STODDARD Report Released Date/Time: Apr 16, 2023 09:25 AM Reporting Lab: [facility] [place] [facility] [address] [facility] [address] Performing Lab: [facility] [facility] [address] [facility] [address] [facility] [place] [facility] BASIC METABOLI C PANEL (fasting ) POTASSIUM [MOLES/VOL UME] IN SERUM OR PLASMA 4.6 mmol/L 3.5 - 5.0 09/29 Specimen Type: SERUM No comment entered. Ordering Provider: VIOLA STODDARD Report Released Date/Time: Apr 16, 2023 09:25 AM Reporting Lab: [facility] [place] [address] [address] Performing Lab: [facility] [place] [address] [address] [facility] [place] [facility] BASIC METABOLI C PANEL (fasting ) CHLORIDE [MOLES/VOL UME] IN SERUM OR PLASMA 106 mmol/L 100 - 110 09/29 Specimen Type: SERUM No comment entered. Ordering Provider: VIOLA STODDARD Report Released Date/Time: Apr 16, 2023 09:25 AM Reporting Lab: [facility] [place] [facility] [address] [facility] [address] Performing Lab: [facility] [place] [address] [address] [facility] [place] [facility] BASIC METABOLI C PANEL (fasting ) CARBON DIOXIDE, TOTAL [MOLES/VOL UME] IN SERUM OR PLASMA 26 meq/L 20 - 30 09/29 Specimen Type: SERUM No comment entered. Ordering Provider: VIOLA STODDARD Report Released Date/Time: Apr 16, 2023 09:25 AM Reporting Lab: [facility] [place] [address] [address] Performing Lab: [facility] [place] [facility] [address] [facility] [address] [facility] [place] [facility] BASIC METABOLI C PANEL (fasting ) CREATININE [MASS/VOLU ME] IN SERUM OR PLASMA 0.83 mg/dL 0.50 - 1.40 09/29 Specimen Type: SERUM No comment entered. Ordering Provider: VIOLA STODDARD Report Released Date/Time: Apr 16, 2023 09:25 AM Reporting Lab: [facility] [place] [facility] [address] [facility] [address] Performing Lab: [facility] [place] [facility] [address] [facility] [address] [facility] [place] [facility] BASIC METABOLI C PANEL (fasting ) GLOMERULAR FILTRATION RATE/1.73 SQ M.PREDICTE D [VOLUME RATE/AREA] IN SERUM, PLASMA OR BLOOD BY CREATININE -BASED FORMULA (CKD-EPI 2020) >90mL/mi n 60 09/29 Specimen Type: SERUM No comment entered. Ordering Provider: VIOLA STODDARD Report Released Date/Time: Apr 16, 2023 09:25 AM Reporting Lab: [facility] [place] [facility] [address] [facility] [address] Performing Lab: [facility] [place] [address] [address] [facility] [place] [facility] LIPID PANEL FASTING CHOLESTERO L [MASS/VOLU ME] IN SERUM OR PLASMA 183 mg/dL 09/29 Specimen Type: SERUM No comment entered. Ordering Provider: VIOLA STODDARD Report Released Date/Time: Apr 16, 2023 09:25 AM Reporting Lab: [facility] [place] [facility] [address] [facility] [address] Performing Lab: [facility] [place] [address] [address] [facility] [place] [facility] LIPID PANEL FASTING TRIGLYCERI DE [MASS/VOLU ME] IN SERUM OR PLASMA 57 mg/dL 0 - 150 09/29 Specimen Type: SERUM No comment entered. Ordering Provider: VIOLA STODDARD Report Released Date/Time: Apr 16, 2023 09:25 AM Reporting Lab: [facility] [place] [facility] [address] [facility] [address] Performing Lab: [facility] [place] [facility] [address] [facility] [address] [facility] [place] [facility] LIPID PANEL FASTING CHOLESTERO L IN LDL [MASS/VOLU ME] IN SERUM OR PLASMA BY CALCULATIO N 107 mg/dL 0 - 129 09/29 Specimen Type: SERUM No comment entered. Ordering Provider: VIOLA STODDARD Report Released Date/Time: Apr 16, 2023 09:25 AM Reporting Lab: [facility] [place] [facility] [address] [facility] [address] Performing Lab: [facility] [place] [facility] [address] [facility] [address] [facility] [place] [facility] LIPID PANEL FASTING CHOLESTERO L.TOTAL/CH OLESTEROL IN HDL [MASS RATIO] IN SERUM OR PLASMA 2.8 09/29 Specimen Type: SERUM No comment entered. Ordering Provider: VIOLA STODDARD Report Released Date/Time: Apr 16, 2023 09:25 AM Reporting Lab: [facility] [place] [facility] [address] [facility] [address] Performing Lab: [facility] [place] [facility] [address] [facility] [address] [facility] [place] [facility] LIPID PANEL FASTING CHOLESTERO L IN HDL [MASS/VOLU ME] IN SERUM OR PLASMA 65 mg/dL 40 - 60 09/29 H Specimen Type: SERUM No comment entered. Ordering Provider: VIOLA STODDARD Report Released Date/Time: Apr 16, 2023 09:25 AM Reporting Lab: [facility] [place] [facility] [address] [facility] [address] Performing Lab: [facility] [place] [facility] [address] [facility] [address] [facility] [place] [facility] HEMOGLOB IN A1C PANEL HEMOGLOBIN A1C/HEMOGL OBIN.TOTAL IN BLOOD BY HPLC 5.5 4.0 - 5.6 09/29 Specimen Type: BLOOD Comment: Values obtained from A1C measurement s can vary. For atypical A1C assays, a reported value of 7.0 could actually be between 6.72 and 7.28 if measured by a reference method. A reported value of 9.0 could actually be between 8.73 and 9.27. Ref: http://www. ngsp.org/[place] Pdata.asp Ordering Provider: VIOLA STODDARD Report Released Date/Time: Apr 16, 2023 09:25 AM Reporting Lab: [facility] [place] [facility] [address] [facility] [address] Performing Lab: [facility] [place] [facility] [address] [facility] [address] [facility] [place] [facility] Vital Signs Combined list of inpatient and outpatient Vital Signs from Department of Defense and Veterans Affairs, ranging from 12 months to all on record, depending upon the facility. Vital Sign Value Date Comments Source SYSTOLIC BLOOD PRESSURE 121 10/06/19 13:22:12 [facility] [place] [facility] DIASTOLIC BLOOD PRESSURE 69 10/05/ 025 13:22:12 [facility] [place] [facility] PULSE OXIMETRY 98 % 10/05/2024 13:22:12 [facility] [place] [facility] WEIGHT 160 10/05/2024 13:22:12 [facility] [place] [facility] BMI 24 kg/m2 10/05/2024 13:22:12 [facility] [place] [facility] PAIN 8 10/05/2024 13:22:12 [facility] [place] [facility] HEIGHT 68 10/05/2024 13:22:12 [facility] [place] [facility] TEMPERATURE 97.3 10/05/2024 13:22:12 [facility] [place] [facility] PULSE 69 10/05/2024 13:22:12 [facility] [place] [facility] RESPIRATION 20 10/05/2024 13:22:12 [facility] [place] [facility] SYSTOLIC BLOOD PRESSURE 131 04/16/19 25 10:10:01 [facility] [place] [facility] DIASTOLIC BLOOD PRESSURE 73 025 10:10:01 [facility] [place] [facility] PULSE OXIMETRY 98 04/15/2024 10:10:01 [facility] [place] [facility] WEIGHT 160 04/15/2024 10:10:01 [facility] [place] [facility] BMI 24 kg/m2 04/15/2024 10:10:01 [facility] [place] [facility] PAIN 0 04/15/2024 10:10:01 [facility] [place] [facility] TEMPERATURE 97.7 04/15/2024 10:10:01 [facility] [place] [facility] PULSE 68 04/15/2024 10:10:01 [facility] [place] [facility] RESPIRATION 16 04/15/2024 10:10:01 [facility] [place] [facility] SYSTOLIC BLOOD PRESSURE 136 12/11/19 24 11:34:51 [facility] [place] [facility] DIASTOLIC BLOOD PRESSURE 76 024 11:34:51 [facility] [place] [facility] PULSE OXIMETRY 98 12/11/2023 11:34:51 [facility] [place] [facility] WEIGHT 160 12/11/2023 11:34:51 [facility] [place] [facility] BMI 24 kg/m2 12/11/2023 11:34:51 [facility] [place] [facility] PAIN 0 12/11/2023 11:34:51 [facility] [place] [facility] TEMPERATURE 97.8 12/11/2023 11:34:51 [facility] [place] [facility] PULSE 65 12/11/2023 11:34:51 [facility] [place] [facility] RESPIRATION 16 12/11/2023 11:34:51 [facility] [place] [facility] SYSTOLIC BLOOD PRESSURE 128 11/11/19 24 14:09:43 [facility] [place] [facility] DIASTOLIC BLOOD PRESSURE 84 024 14:09:43 [facility] [place] [facility] PULSE OXIMETRY 99 11/11/2023 14:09:43 [facility] [place] [facility] WEIGHT 160 11/11/2023 14:09:43 [facility] [place] [facility] BMI 24 kg/m2 11/11/2023 14:09:43 [facility] [place] [facility] PAIN 0 11/11/2023 14:09:43 [facility] [place] [facility] TEMPERATURE 98.6 11/11/2023 14:09:43 [facility] [place] [facility] PULSE 70 11/11/2023 14:09:43 [facility] [place] [facility] RESPIRATION 16 11/11/2023 14:09:43 [facility] [place] [facility] SYSTOLIC BLOOD PRESSURE 151 10/15/19 24 09:00:48 [facility] [place] [facility] DIASTOLIC BLOOD PRESSURE 70 024 09:00:48 [facility] [place] [facility] PULSE OXIMETRY 99 10/15/2023 09:00:48 [facility] [place] [facility] WEIGHT 161.7 10/15/2023 09:00:48 [facility] [place] [facility] BMI 24 kg/m2 10/15/2023 09:00:48 [facility] [place] [facility] PAIN 0 10/15/2023 09:00:48 [facility] [place] [facility] HEIGHT 69 10/15/2023 09:00:48 [facility] [place] [facility] TEMPERATURE 97.5 10/15/2023 09:00:48 [facility] [place] [facility] PULSE 78 10/15/2023 09:00:48 [facility] [place] [facility] RESPIRATION 16 10/15/2023 09:00:48 [facility] [place] [facility] Encounters Combined list of: 1) Encounters from Department of Veterans Affairs facilities going backup to the last 18 months, not all VA inpatient encounters are included; 2) Encounters from the Department of Defense facilities going backup to 280 months. Location Location Details Encounter Type Encounter Number Reason For Visit Attending Provider ADM Date DC Date Status Disposition Source [facility] OFFICE O/P EST MOD 30 MIN [id number] Diagnos is: ICD-10- CM F43.10 Post-tr aumatic stress disorde r, unspeci fied AWILDA STODDARD MMED JAWED 04/15 [facility] Out[facility] Encounter [id number] CAMILO DAO 04/25 [facility] En[facility] [id number] 06/18 [facility] En[facility] [id number] CAMILO DAO 06/27 [facility] PT EVAL LOW COMPLEX 20 MIN [id number] Diagnos is: ICD-10- CM R97.20 Elevate d prostat e specifi c antigen [PSA] SA CARLA STANLEY J 07/09 [facility] En[facility] [id number] ESTRELLA SOLANO 07/21 [facility] Encounter [id number] 07/31 [facility] Encounter [id number] 08/07 [facility] OFF[facility] O/P EST LOW 20 MIN [id number] Diagnos is: ICD-10- CM E11.9 Type 2 diabete s mellitu s without complic ations CAMILO WALKER D 08/07 [facility] En[facility] [id number] 08/08 [facility] O/P EST MOD 30 MIN [id number] Diagnos is: ICD-10- CM 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 TRINO ADHIKARI 08/26 [facility] Encounter [id number] CAMILO WALKER 09/05 [facility] En[facility] [id number] Jorge L EDGE 09/26 [facility] [id number] 1.09/30 [facility] [id number] [facility] [id number] 1[facility]10/13 [facility] OFF[facility] O/P EST MOD 30 MIN [id number] Diagnos is: ICD-10- CM Z77.29 Contact with and exposur e to other hazardo us substan elizabeth FURCOLO,TI NA 10/14 [facility] [id number] 1[facility]10/17 [facility] [id number] 1. Jorge L EDGE 10/20 [facility] [id number] 1.10/20 [facility] [id number] 1[facility]10/30 [facility] En[facility] [id number] 1.10/30 [facility] PSYTX W PT 45 MINUTES [id number] 1. Diagnos is: ICD-10- CM Z63.0 Problem s in relatio nship with spouse or partner KELLY HUTCHINSON 11/05 [facility] [id number] 11/06 [facility] Outpatient Encounter [id number] 1.11/06 [facility] COMPRE OPH EXAM EST PT 1/ [id number] Diagnos is: ICD-10- CM E11.9 Type 2 diabete s mellitu s without complic ations LANE VERNON 11/07 [facility] FIT SPECTACLES MULTIFOCAL [id number] Diagnos is: ICD-10- CM Z46.0 Encount er for fit/adj st of spectac les and contact lenses L[facility] VERNON 11/07 [facility] OFFICE O/P EST MOD 30 MIN [id number] Diagnos is: ICD-10- CM R32 Unspeci fied urinary inconti nence FURCOLO,TI NA 11/10 [facility] Outpatient Encounter [id number] 11/10 [facility] Outpatient Encounter [id number] CAMILO DAO 12/01 [facility] Outpatient Encounter [id number] 12/02 [facility] Outpatient Encounter [id number] 1.12/04 [facility] PSYTX W PT 30 MINUTES [id number] Diagnos is: ICD-10- CM Z63.0 Problem s in relatio nship with spouse or partner KELLY HUTCHINSON 12/04 [facility] Outpatient Encounter [id number] 1.12/08 [facility] Outpatient Encounter [id number] 12/08 [facility] Outpatient Encounter [id number] 1. 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 FURCOLO,TI NA 12/10 [facility] Outpatient Encounter [id number] 12/10 [facility] Outpatient Encounter [id number] 12/11 [facility] Outpatient Encounter [id number] 12/11 [facility] QNHP OL DIG ASSMT&MGMT 5-10 [id number] Diagnos is: ICD-10- CM R39.81 Functio nal urinary inconti neLANA Engle 12/11 [facility] Outpatient Encounter [id number] 12/19 [facility] Outpatient Encounter [id number] 12/31 [facility] HEARING AID CHECK ONE EAR [id number] Diagnos is: ICD-10- CM Z46.1 Encount er for fitting and adjustm ent of hearing aid AGUSTIN RAUSCH 12/31 [facility] Outpatient Encounter [id number] 01/13 [facility] Outpatient Encounter [id number] 01/16 [facility] Outpatient Encounter [id number] MIRIANBRYANTBrennanLEONIDAS Brennan 01/19 [facility] Outpatient Encounter [id number] GORDON TILLEY 01/20 [facility] Outpatient Encounter [id number] 01/20 [facility] FIT SPECTACLES MULTIFOCAL [id number] Diagnos is: ICD-10- CM Z46.0 Encount er for fit/adj st of spectac les and contact lenses DELONTE HANSON 01/21 [facility] RPR&REFITG SPECT XCP APHAKIA [id number] Diagnos is: ICD-10- CM Z46.0 Encount er for fit/adj st of spectac les and contact lenses DELONTE HANSON 02/18 [facility] Outpatient Encounter [id number] 03/03 [facility] Outpatient Encounter [id number] 03/03 [facility] RPR&REFITG SPECT XCP APHAKIA [id number] Diagnos is: ICD-10- CM Z46.0 Encount er for fit/adj st of spectac les and contact lenses DELONTE HANSON 03/11 [facility] Outpatient Encounter [id number] Raegan SARAVIA 03/18 [facility] Outpatient Encounter [id number] GORDON TILLEY 03/19 [facility] Outpatient Encounter [id number] 03/19 [facility] RPR&REFITG SPECT XCP APHAKIA [id number] Diagnos is: ICD-10- CM Z46.0 Encount er for fit/adj st of spectac les and contact lenses DELONTE HANSON 03/25 [facility] Outpatient Encounter [id number] 03/26 [facility] Outpatient Encounter [id number] 04/01 [facility] Outpatient Encounter [id number] 04/06 [facility] OFFICE O/P EST MOD 30 MIN [id number] Diagnos is: ICD-10- CM 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 FURCOLO,TI NA 04/15 [facility] Outpatient Encounter [id number] 04/15 [facility] Outpatient Encounter [id number] 04/21 [facility] Outpatient Encounter [id number] 05/26 [facility] EXTENDED VISUAL FIELD XM [id number] Diagnos is: ICD-10- CM H40.013 Open angle with borderl ine finding s, low risk, bilater al VERNON,LACE Y J 05/27 [facility] CPTRZ OPH DX IMG PST SGM RTA [id number] Diagnos is: ICD-10- CM H40.013 Open angle with borderl ine finding s, low risk, bilater al VERNON,LACE Y J 05/27 [facility] OFFICE O/P EST HI 40 MIN [id number] Diagnos is: ICD-10- CM H53.2 Diplopi a VERNON,LACE Y J 05/27 [facility] Outpatient Encounter [id number] CHUY MERLOS 06/03 [facility] Outpatient Encounter [id number] 06/03 [facility] Outpatient Encounter [id number] CAMILO DAO 07/02 [facility] Outpatient Encounter [id number] CHUY MERLOS 07/31 [facility] Outpatient Encounter [id number] 07/31 [facility] OFFICE O/P EST HI 40 MIN [id number] Diagnos is: ICD-10- CM H50.51 Esophor CHESTER Ballard 08/07 [facility] OFFICE O/P EST MOD 30 MIN [id number] Diagnos is: ICD-10- CM 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 TRINO ADHIKARI 08/25 [facility] Outpatient Encounter [id number] 08/25 [facility] Outpatient Encounter [id number] 08/25 [facility] Outpatient Encounter [id number] 09/02 [facility] Outpatient Encounter [id number] CHUY MERLOS 09/04 [facility] Outpatient Encounter [id number] CAMILO DAO BethLUCIUS 09/09 [facility] Outpatient Encounter [id number] 09/15 [facility] Outpatient Encounter [id number] CAMILO DAO BethLUCIUS 09/17 [facility] Outpatient Encounter [id number] 09/20 [facility] OFFICE O/P EST MOD 30 MIN [id number] Diagnos is: ICD-10- CM M54.2 Cervica lgia FURCOLO,TI NA 10/05 [facility] Outpatient Encounter [id number] 10/05 [facility] MANUAL THERAPY 1/ REGIONS [id number] Diagnos is: ICD-10- CM M54.2 Cervica lgia ROSANNA DOWNEY M 10/09 [facility] Outpatient Encounter [id number] 10/13 [facility] Social History Combined list of available smoking, tobacco, and other social history from Department of Defense and Veterans Affairs facilities. Social History Type Response Date Comment Source Tobacco smoking status [facility] VA-TOBACCO FORMER USER 12/11/2023 [facility] History of tobacco use VA-TOBACCO QUIT 15 YRS OR MORE 12/11/2023 [facility] History of tobacco use VA-TOBACCO FORMER USER 12/18/2022 [facility] History of tobacco use FL-TOBACCO QUIT 15 YRS OR MORE 12/06/2021 [facility] History of tobacco use FL-TOBACCO FORMER USER 11/03/2020 [facility] History of tobacco use FL-TOBACCO FORMER USER 12/04/2019 [facility] History of tobacco use FL-TOBACCO QUIT 15 YRS OR MORE 05/30/2018 [facility] History of tobacco use FL-TOBACCO FORMER USER 11/29/2017 [facility] History [facility] tobacco use LIFETIME NON-TOBACCO USER 12/13/2016 [facility] History of tobacco use QUIT TOBACCO USE > 7 YEARS AGO 07/13/2015 . [facility] History of tobacco use QUIT TOBACCO USE > 7 YEARS AGO 02/15/2009 quit when he left service in 1968. [facility] Plan of Care List of future care activities from Department of Veterans Affairs facilities. Additional future care activities may be listed in the Assessment and Plan section. Date/Time Care Activity Care Activity Detail Berei ty 10/23/2024 AMBULATORY - REHAB MEDICINE AMBULATORY - REHAB MEDICINE [facility]
--- NOTE | 2024-10-14 13:56 | MHC.OFFVIS ---
Intake Visit Reasons: BPH w/LUTS Intake Note: New Patient is present for BPH w/LUTS Urology Rx:Finasteride, Tamsulosin Blood Thinners:none Imaging completed: none PVR: 53 mls Broadcast Program Director Required: No Accompanied by: Self / Same As Patient Allergies No Known Allergies Allergy (Verified 10/14/24 13:57) HPI Comments Details: Aryan is a pleasant male. He is a patient of Dr. Restrepo. He is seen for the following urologic conditions - stress incontinence Accompanied by Discussion today regarding prior prostate intervention with ongoing urinary stress incontinence Underwent Aquablation early 2023 with external urologist Initial postoperative course had associated symptoms of urgency and frequency likely secondary to bladder related storage impairment Was noted on follow-up notes to have high urinary residual Throughout this time. Has developed stress incontinence using 2-3 pads per day Relative urinary control during nighttime Has tried pelvic floor exercises PVR today 50 cc At this point in time he appears to have developed adequate control of his bladder and urgency and frequency symptoms have mostly resolved. Does appear to have stress incontinence following prostate procedure. Recommend office cystoscopy to check for coaptation. Did discuss potential management treatment such as male sling. [facility] Medical History Hemorrhoids without complication Surgical History Hx of surgical procedure (~2015) History of prostate surgery History of hernia surgery (~07/2022) Family History Mother Cancer Father Cancer Social History Alcohol intake: never Patient Tobacco Use Status: Never used Tobacco Review of Systems Const Denies chills and Denies fever(s) Card Reports no additional complaints and Denies syncope Resp Denies cough GI Denies abdominal pain and Denies heartburn Reports as per HPI and Denies change in libido Neuro Denies syncope Psych Denies change in libido Endo Denies change in libido Physical Exam Const General: cooperative, healthy appearing, comfortable and no acute distress Orientation/consciousness: patient oriented x3 HEENT Face and sinus: Yes normal facial exam Mouth: moist mucous membranes Neck Neck: Yes normal visual inspection, Yes full ROM and Yes trachea midline Chest Chest palpation & inspection: normal inspection of the chest Resp Effort & Inspection: normal respiratory effort, able to speak in complete sentences and no respiratory distress GI Inspection: Yes normal to inspection Back/Spine/Pelvis Cervical Spine: normal cervical lordosis Thoracic/Lumbar Spine: thoracic and lumbar spine normal to inspection Skin General skin exam: no rashes or lesions noted Neuro General: patient oriented x3, gait normal, tone normal and moves all extremities Extrem General: Yes normal to inspection and Yes capillary refill normal Office Procedures Post Void Residual Post Residual Void Post Void Residual (PVR): 53 05871-Datw Void Residual by ultrasound Assessment & Plan Assessment & Plan (1) Male stress incontinence: Code(s): N39.3 - Stress incontinence (female) (male) Category: Medical Plan Plan office cystoscopy Orders: Orders AMB Urinalysis Automated Today Z13.9 - Encounter for screening, unspecified AMB Post Void Residual by ultrasound Today K64.9 - Unspecified hemorrhoids Patient Instructions: This note is constructed using voice recognition software. While every effort has been made to ensure accuracy store grocery merchandiser errors may have been included. Imaging studies, laboratory and physical exam results were discussed and reviewed in detail. No major barriers to patient understanding were identified. An opportunity to ask questions regarding the treatment plan was provided. All questions were answered. The patient expressed understanding and agreement with the above treatment plan. The patient is aware they should contact our office by phone for worsening of their current condition or the appearance of new urologic symptoms. Compliance is encouraged with any medications and followup testing that is ordered. It is a privilege to participate in the urologic care of your patient. If you have any questions or concerns regarding treatment for the above conditions, or other urologic issues, please do not hesitate to contact me. The office telephone contact is [phone]. Sincerely, Dr Marco Antonio Blake MD, [facility] - Urology Compassionate Specialist Care for the Genitourinary System Coding Level of Care Code New Pt Level 4 (44325) Diagnoses Male stress incontinence N39.3 CPT Codes Post Residual Void - PVR CPT Code: 81010-Xrod Void Residual by ultrasound ([id number])
--- OUTSIDE RECORDS SUMMARY | 2024-10-14 15:58 | XMS_ITS | Encounter Summary ---
Author Organization [facility] Address [facility] [address] [place] [address] Phone Care Team Providers Care Information Technology Analyst Name Role Phone Barbara Cooper MODELING AGENT Unavailable Aiden Muro MD Primary Care Provider [phone] Becky Restrepo DO Primary Care Provider [phone] Encounter Details Date Type Department Care Team (Late st Contact Info) Description 01/04/2020 Procedure Pass [facility] Endoscopy Admitting Dept Virtual Department [address] [place] [address] Social History Tobacco Use Types Packs/Day Years Used Date Smoking Tobacco: Former Cigarettes Q uit: 1969 Smokeless Tobacco: Never Alcohol Use Standard Drinks/Week Comments Yes 1 (1 standard drink = 0.6 oz pur e alcohol) Sex and Gender Information Value Date Recorded Sex Assigned at Male 12/05/2020 11:22 AM EDT Legal Sex Male 10:06 PM EDT Gender Identity Male 12/05/2020 11:22 AM EDT Sexual Orientation Not on file documented as of this encounter Plan of Treatment Not on file documented as of this encounter Visit Diagnoses Not on filedocumented in this encounter Care Teams Information Technology Analyst Relationship Specialty Start Date End Date Aiden Muro MD [address] [place] [address] PCP - General Internal Medicine 01/04/20 12/02/23 Becky Restrepo DO [address] [place] [address] PCP - General Internal Medicine 12/03/23 Barbara Cooper, MODELING AGENT [address] [place] [address] Family Medicine 01/30/17 documented as of this encounter Additional Source Comments The information contained in this document represents components of the legal health record. It is not the complete legal health record.[facility]
--- OUTSIDE RECORDS SUMMARY | 2024-10-14 15:58 | XMS_ITS | Encounter Summary ---
Author Organization [facility] Address [address] [place] [address] Phone Care Team Providers Care Foreclosure Home Inspector Name Role Phone Barbara Cooper CUSTOMER ACCOUNT SPECIALIST Unavailable Aiden Muro MD Primary Care Provider [phone] Becky Restrepo DO Primary Care Provider [phone] Encounter Details Date Type Department Care Team (Late st Contact Info) Description 12/05/2020 Procedure Pass [facility], Ct Scan - [address] [id number] Social History Tobacco Use Types Packs/Day Years [...] on file documented as of this encounter Functional Status * Calculated C-SSRS Risk Score (Lifetime/Recent) Answer Date of Assessment Author No Risk Indicated 12/05/2020 6:31 PM EDT Genet Alexander, RN * [place] Suicide Severity Rating Scale (Screener/Recent Self-Report) Question Answer Date of Assessment Author 1. Wish to be (Past 1 Month) No 021 6:31 PM EDT Genet Alexander RN 2. Non-Specific Active Suici srinath Thoughts (Past 1 Month) No 12/05/2020 6:31 PM EDT Genet Alexander RN 6. Suicidal Behavior (Lifetime) No 6:31 PM EDT Genet Alexander RN documented as of this encounter Plan of Treatment Not on file documented as of this encounter Visit Diagnoses Not on filedocumented in this encounter Care Teams Foreclosure Home Inspector Relationship Specialty Start Date End Date Aiden Muro MD [address] [place] [address] PCP - General Internal Medicine 01/04/20 12/02/23 Becky Restrepo DO [address] [place] [address] PCP - General Internal Medicine 12/03/23 Barbara Cooper, CUSTOMER ACCOUNT SPECIALIST [address] [place] [address] Family Medicine 01/30/17 documented as of this encounter Additional Source Comments The information contained in this document represents components of the legal health record. It is not the complete legal health record.[facility]
--- OUTSIDE RECORDS SUMMARY | 2024-10-14 15:58 | XMS_ITS | Clinical Summary ---
Author Organization [facility] Address Formerly [facility] [address] [place] [address] Phone Care Team Providers Care Weapons Officer [employer] Name Role Phone Barbara Cooper LITIGATION MANAGER Unavailable Becky Restrepo DO Primary Care Provider [phone] Allergies Active Allergy Reactions Criticality Noted Date Comments Cyclobenzaprine Unknown Low 09/11/2021 Gabapentin Swelling Low 04/25/2016 lip swelling Gadolinium-Containing Contrast Media 12/24/2019 PT STATES VERY FLUSHED FACE RED TOOK LIQUID BENADRYL AFTER HAD MRI SINCE THIS Iodinated Contrast Media Hives 02/15/2009 Metformin Palpitations,Cramps ,Other (See Comments) Low 06/05/2011 Mirtazapine 11/30/2020 Other reaction(s): Pain in eye Venom-Honey Bee 09/11/2021 Medications glyBURIDE (DIABETA) 1.25 MG tablet Take 1.25 mg by mouth daily as needed (high blood sugars). Active tamsulosin (FLOMAX) 0.4 mg Cap 0.4 mg daily. 0 Active vitamins A,C,E-zinc-tania er (PRESERVISION AREDS) 14,320-226-200 [id number]-tp-[id number] Cap Take 1 capsule by mouth 2 (two) times a day with meals. Active polyethylene glycol (MIRALAX) 17 gram packet Take 17 g by mouth daily as needed. Active LORazepam (ATIVAN) 0.5 MG tabletIndicatio ns:insomnia Take 0.5 mg by mouth every 8 (eight) hours as needed (for insomnia). Indications: difficulty sleeping Active atorvastatin (LIPITOR) 80 MG tablet Take 1 tablet (80 mg total) by mouth nightly at bedtime. 30 tablet 1 Active blood sugar diagnostic (GLUCOSE BLOOD) Strp strips USE 1 STRIP TO TEST BLOOD SUGARS TWICE A WEEK NEEDED FOR BLOOD SUGAR 1 Active omeprazole (PRILOSEC) 20 MG capsule As needed 2 Active ascorbic acid, vitamin C, (VITAMIN C) 100 MG tablet Active magnesium oxide 420 mg Tab magnesium oxide Take No date recorded No form recorded No frequency recorded No route recorded No set duration recorded No set duration amount recorded active No dosage strength recorded No dosage strength units of measure recorded Active carboxymethylce llulose (REFRESH PLUS) 0.5 % Dpet Place into each eye 3 (three) times a day as needed. Active acetaminophen (TYLENOL) 325 mg tablet Take 2 tablets (650 mg total) by mouth every 6 (six) hours as needed. 0 3 Active ibuprofen (ADVIL,MOTRIN) 200 MG tablet Take 2 tablets (400 mg total) by mouth every 6 (six) hours as needed for pain (specific location in comments). 3 Active senna (SENOKOT) 8.6 mg tablet Take 1 tablet by mouth 2 (two) times a day. 3 Active Additional Information Patient not taking.Reported on 05/26/2024 albuterol 90 mcg/actuation inhaler Inhale 2 puffs into the lungs every 4 (four) hours as needed for wheezing. 8 g 4 Active vibegron (GEMTESA) 75 mg tablet Take 1 tablet by mouth daily. 5 Active doxycycline monohydrate (MONODOX) 100 MG capsule Take 100 mg by mouth 2 (two) times a day. Active methocarbamoL (ROBAXIN) 500 MG tablet Take 1 tablet (500 mg total) by mouth 3 (three) times a day for 3 days. 9 tablet 5 09/24/19 25 Active Problems Problem Noted Date Diagnosed Date BPH with obstruction/lower urinary tract symptom s 03/12/2023 BPH with urinary obstruction 03/12/2023 Assessment & Plan (03/12/2023 2:21 PM EST): Hx of BPH s/p aquablation with Dr Florence. Pt tolerated the procedure well. Denies any spasms. -continue CBI with webster -obtain a CBC now and in am -obtain BMP -pain control per urology -SCDs for DVT proph. Hypercholesterolemia 03/12/2023 Assessment & Plan (03/12/2023 2:24 PM EST): Patient notes well controlled with diet. He mentions he only takes his lipitor as needed. Sleep apnea Assessment & Plan (12/05/2020 4:07 PM EDT): Intolerant of CPAP Type 2 diabetes mellitus wit hout complication, without long-term current use of insulin Overview (12/05/2020): Type 2 Assessment & Plan (03/12/2023 2:22 PM EST): Patient states a hx of DM but well controlled with diet and exercise. Patient mentions only takes the glyburide as needed and checks his blood sugars once a week. -humalog ss with meals prn -POCs with meals -diabetic diet Assessment & Plan (12/05/2020 4:09 PM EDT): Patient is supposed to be on glyburide but does not always take it We will place him on low-dose basal insulin with sliding scale while inpatient Check hemoglobin A1c Ataxia Assessment & Plan (12/05/2020 4:19 PM EDT): Episodic ataxia, episode occurring 2 days ago while walking to the bathroom he felt he was walking sideways. Occurred again this morning between 5 and 7 AM. Symptoms have currently resolved. Over the past 7 weeks or so he has had intermittent headache, eye pain and flashing light symptoms. He has seen an senior cytotechnologist and was told that his vision is fine. No focal weakness or numbness, no issues with speaking or understanding speech CT a head and neck reportedly without acute pathology, official radiology interpretation pending Lab work unremarkable, vital signs stable. [facility] neurology recommends lab work-up as well as noncontrast MRI including ammonia ESR CRP B12 and TSH The patient does complain of increased stress and insomnia, there are 2 medicines on his [facility] list including mirtazapine and Ambien that he did not mention on admission, these appear to be new medications Plan -MRI brain -Neurochecks -TSH, ammonia, B12, CRP, ESR, lipid panel and hemoglobin A1c -Echocardiogram -clinical research monitor -PT OT -[facility] neurology consultation -Aspirin, high intensity statin Resolved Problems Problem Noted Date Diagnosed Date Resolved Date TIA (transient ischemic attack) 12/05/2020 12/06/2020 Encounters Date Type Department Care Team Description 09/20/2024 7:12 AM EDT - 09/20/2024 9:24 AM EDT Emergency [facility] [address] [place] [address] Discharge Disposition: Home or Self Care from Last 3 Months Immunizations Immunization Administration Dates Next Due Tdap 02/10/2021 Family History Medical History Relation Comments Cancer Father Cancer Mother Relation Status Comments Father Mother Social History Tobacco Use Types Packs/Day Years Used Date Smoking Tobacco: Former Cigarettes Q uit: 1969 Smokeless Tobacco: Never Tobacco Cessation:Counseling Given: Not Answered Alcohol Use Standard Drinks/Week Comments Yes 2 (1 standard drink = 0.6 oz pur e alcohol) Education Answer Date Recorded Are you interested in more education? Not on joyce e 06/08/2022 Are you concerned about learning? Not on file 06/08/2022 No 06/08/2022 No 06/08/2022 Digital Access Answer Date Recorded No 07/09/2022 No 07/09/2022 Reliable internet access at home? Not on file 07/09/2022 Device with a working camera? Not on file Intimate Partner Violence Answer Date R ecorded Are you denied basic needs s uch as food, clothing, or medical care? No 09/20/2024 In the past 12 months have y ou been in a relationship with a person who hurts, threatens, or tries to control you? No 09/20/2024 Are you denied basic needs s uch as food, clothing, or medical care? No 09/20/2024 In the past 12 months have y ou been in a relationship with a person who hurts, threatens, or tries to control you? No 09/20/2024 Sex and Gender Information Value Date Recorded Sex Assigned at Male 12/05/2020 11:22 AM EDT Legal Sex Male 10:06 PM EDT Gender Identity Male 12/05/2020 11:22 AM EDT Sexual Orientation Not on file Last Filed Vital Signs Vital Sign Reading Time Taken Comments Blood Pressure 127/71 09/20/2024 9:23 AM EDT Pulse 65 09/20/2024 9:23 AM EDT Temperature 36.7 C (98.1 F) 09/20/2024 9:23 AM EDT Respiratory Rate 16 09/20/2024 9:23 AM EDT Oxygen Saturation 97% 09/20/2024 9:23 AM EDT Inhaled Oxygen Concentration - - Weight 64.4 kg (142 lb) 09/20/2024 7:02 AM EDT Height 175.3 cm (5' 9 ) 09/20/2024 7:02 AM EDT Body Mass Index 20.97 09/20/2024 7:02 AM EDT Plan of Treatment Health Maintenance Due Date Last Done Comments DEPRESSION SCREENING 1959 HEPATITIS C SCREENING 04/20/1965 URINE MICROALBUMIN/CREATININE RATIO 12/05/2020 HEMOGLOBIN A1C 06/06/2021 12/06/2020 INFLUENZA VACCINE (#1) 2024 , 12/06/2022, 09/29/2022, Additional history exists COVID-19 VACCINE ( season) 2024 11/04/2021, 08/20/2021, 12/15/2020 BLOOD PRESSURE 11/25/2024 05/26/2024 DIABETIC EYE EXAM 05/27/2025 05/27/2024, , 11/18/2020, Additional history exists SMOKING Hx and SMOKELESS TOBACCO SCREENING 09/20/2025 09/20/2024 Adult Td,Tdap Booster 02/10/2031 02/10/2021 , 01/20/2015, 05/24/2005 PNEUMOCOCCAL VACCINES (50+ years) Completed 01/20/2015, 2012, 09/26/2007 ZOSTER VACCINES Completed 08/08/2021, 11/12, 09/24/2018, Additional history exists RSV VACCINE Completed 02/14/2023 HEPATITIS A VACCINES Aged Out No long er eligible based on patient's age to complete this topic HIB VACCINES Aged Out No longer eligi ble based on patient's age to complete this topic MENINGOCOCCAL VACCINES (ACWY) Aged Out No longer eligible based on patient's age to complete this topic MENINGOCOCCAL VACCINES (B) Aged Out N o longer eligible based on patient's age to complete this topic Medical Devices Implanted Type Area Drying Tumbler Operator Device Identifier Shelf Expiration Date Model / Serial / Lot Mesh Graft 1.3x1.55in 3.3 3.9cm Med Perfix Polypropylene Monofilament Plug Inguinal Hernia Soft Tissue Repair Cs/2ea - [id number] Implanted:Qty: 1 on 07/25/2022 by Santa Salmeron MD at [facility] STANDARD Left: Groin [employer] [id number] 06/08/2026 [id number] / / [id number] Mesh Graft 1.3x1.55in 3.3 3.9cm Med Perfix Polypropylene Monofilament Plug Inguinal Hernia Soft Tissue Repair Cs/2ea - [id number] Implanted:Qty: 1 on 07/25/2022 by Santa Salmeron MD at [facility] STANDARD Left: Groin [employer] [id number] 12/08/2026 [id number] / / [id number] Procedures Procedure Name Priority Date/Time Associated Diagnosis Comments HEMOGLOBIN A1C Routine 12/06/2020 5:28 AM EDT from Last 3 Months or Most Recently Relevant to Health Maintenance Results * (ABNORMAL) Hemoglobin A1c (12/06/2020 5:28 AM EDT) HEMOGLOBIN A1C 5.9(H) 4.3 - 5.8 % [facility] Blood 12/06/2020 5:28 AM EDT 12/06/2020 6:23 AM EDT us Lisa Rojas NP LAB BLOOD ORDERABLES Fi nal Result [address] [address] from Last 3 Months or Most Recently Relevant to Health Maintenance Insurance MEDICARE PART A & B [facility] MEDICARE PART A & B [facility] MEDICARE PART A & B [employer] [facility] [place] [address] MEDICARE PART A & B [facility] [place] [place] [address] [place] [address] MEDICARE PART A & B Member Subscriber Plan / Payer (Ef fective 2015-Present) Name:Aryan Bland Member ID:[id number] Relation to Subscriber:Self Name:Aryan Bland Subscriber ID:[id number] Payer ID:[id number] Group ID:Not on file Type:Medicare Address: [facility]ine [employer] [facility] [address] [place] [address] [place] [id number] [facility] Member Subscriber Plan / Payer (Ef fective 2001-Present) Name:Aryan Bland Relation to Subscriber:Spouse Name:LARRY BLAND Date of :1900 (Home) Address: [address] [address] Payer ID:[id number] (NAIC) Group ID:[id number] Type:PPO Address: [address] MEDICARE PART A & B [facility] MEDICARE PART A & B [facility] MEDICARE PART A & B [facility] MEDICARE PART A & B [facility] Advance Directives For more information, please contact: [phone] (9AM - 5PM [place], Saturday-Saturday) * Full Code (Latest Code Status on File) Date Activated Date Inactivated Comments 03/12/2023 2:11 PM Question Answer Comments Code Status Confirmed With: Patient * Full Code Date Activated Date Inactivated Comments 03/12/2023 12:07 PM 03/12/2023 2:11 PM Question Answer Comments Code Status Confirmed With: Patient * Full Code Date Activated Date Inactivated Comments 07/25/2022 1:33 PM 03/12/2023 12:07 PM Question Answer Comments Code Status Confirmed With: Patient * Full Code Date Activated Date Inactivated Comments 12/05/2020 6:23 PM 07/25/2022 1:33 PM Question Answer Comments Code Status Confirmed With: Patient Care Teams Weapons Officer [employer] Relationship Specialty Start Date End Date Becky Restrepo DO [address] [place] [address] PCP - General Internal Medicine 12/03/23 Barbara Cooper, LITIGATION MANAGER [address] [place] [address] Family Medicine 01/30/17 Additional Source Comments The information contained in this document represents components of the legal health record. It is not the complete legal health record.[facility]
--- OUTSIDE RECORDS SUMMARY | 2024-10-14 15:58 | XMS_ITS | Encounter Summary ---
Author Organization [facility] Address Formerly [facility] [address] [place] [address] Phone Care Team Providers Care Bean Sprout Grower Name Role Phone Aiden Muro MD Primary Care Provider Barbara Cooper COMMUNITY ARTS WORKER Unavailable Aiden Muro MD Primary Care Provider [phone] Becky Restrepo DO Primary Care Provider [phone] Encounter Details Date Type Department Care Team (Latest Contact Info) Description 12/15/2019 Transcribe Orders [facility] [address] [place] [address] Wallace Dao MD [address] [facility] [address] [place] [address] [email or web address] Dysphagia, unspecified type (Primary Dx); Change in bowel habit Social History Tobacco Use Types Packs/Day Years Used Date Smoking Tobacco: Former Smokeless Tobacco: Never Alcohol Use Standard Drinks/Week [...] on file documented as of this encounter Results * Immunoglobulin A (12/15/2019 9:09 AM EST) IgA 184 70 - 400 mg/dL [facility] Blood 12/15/2019 9:09 AM EST 12/15/2019 9:13 AM EST Wallace Dao MD LAB BLOOD ORDERABLES Final Result Performing Organization Address City/[facility]/ZIP Co de Phone Number [facility] [address] [place] [address] * Tissue transglutaminase IgA (12/15/2019 9:09 AM EST) TTG IGA ANTIBODY <1.2 <4.0 (Negative) U/mL [facility] Blood 12/15/2019 9:09 AM EST 12/15/2019 9:12 AM EST us Wallace Dao MD LAB BLOOD ORDERABLES Final Result Performing Organization Address City/[facility] Co de Phone Number [facility] [address] [address] [place] [address] documented in this encounter Visit Diagnoses Diagnosis Dysphagia, unspecified type- Primary Change in bowel habit documented in this encounter Care Teams Bean Sprout Grower Relationship Specialty Start Date End Date Aiden Muro MD [address] [place] [address] PCP - General Internal Medicine 01/24/17 01/03/20 Aiden Muro MD [address] [place] [address] PCP - General Internal Medicine 01/04/20 12/02/23 Becky Restrepo DO [address] [place] [address] PCP - General Internal Medicine 12/03/23 Barbara Cooper, COMMUNITY ARTS WORKER [address] [place] [address] Family Medicine 01/30/17 documented as of this encounter Additional Source Comments The information contained in this document represents components of the legal health record. It is not the complete legal health record.[facility]
--- OUTSIDE RECORDS SUMMARY | 2024-10-14 15:58 | XMS_ITS | Encounter Summary ---
Author Organization [facility] Address Critical access hospital [employer] [facility] [address] [place] [address] Phone Care Team Providers Care Set Staff Fitter Name Role Phone Aiden Muro MD Primary Care Provider Barbara Cooper COMPLAINT CLERK Unavailable Aiden Muro MD Primary Care Provider [phone] Becky Restrepo DO Primary Care Provider Encounter Details Date Type Department Care Team (Late st Contact Info) Description 12/18/2019 Transcribe Orders Virtual Department [address] [place] [address] Aiden Muro MD [address] [place] [address] Mild cognitive impairment, so stated (Primary Dx) Social History Tobacco Use Types Packs/Day Years [...] documented as of this encounter Visit Diagnoses Diagnosis Mild cognitive impairment, so stated- Primary documented in this encounter Care Teams Set Staff Fitter Relationship Specialty Start Date End Date Aiden Muro MD [address] [place] [address] PCP - General Internal Medicine 01/24/17 01/03/20 Aiden Muro MD [address] [place] [address] PCP - General Internal Medicine 01/04/20 12/02/23 Becky Restrepo DO [address] [place] [address] PCP - General Internal Medicine 12/03/23 Barbara Cooper, COMPLAINT CLERK [address] [place] [address] Family Medicine 01/30/17 documented as of this encounter Additional Source Comments The information contained in this document represents components of the legal health record. It is not the complete legal health record.[facility]
--- OUTSIDE RECORDS SUMMARY | 2024-10-14 15:59 | XMS_ITS | Encounter Summary ---
Author Organization [facility] Address [facility] [address] [place] [address] Phone Care Team Providers Care Microfiche Camera Operator Name Role Phone Aiden Muro MD Primary Care Provider Barbara Cooper RESIDENTIAL AIDE Unavailable Aiden Muro MD Primary Care Provider Becky Restrepo DO Primary Care Provider [phone] Encounter Details Date Type Department Care Team (Late st Contact Info) Description 01/24/2017 Ancillary Orders [facility], X-Ray - [address] [address] Yevgeniy Carrillo, SUMMER [address] [place] [address] [email or web address] Social History Tobacco Use Types Packs/Day Years Used Date Smoking Tobacco: Never Assessed Sex and Gender Information Value Date Recorded Sex Assigned at Male 12/05/2020 11:22 AM EDT Legal Sex Male 10:06 PM EDT Gender Identity Male 12/05/2020 11:22 AM EDT Sexual Orientation Not on file documented as of this encounter Plan of Treatment Not on file documented as of this encounter Results * XR HIP 2 VW RIGHT PLUS PELVIS (01/30/2017 9:51 AM EST) Anatomical Region Laterality Modality Hip Right Radiographic Enriqueta ging 01/30/2017 11:1 3 AM EST Impressions 01/30/2017 11:16 AM EST Mild degenerative changes at the hips. POS - [id number] Narrative 01/30/2017 11:16 AM EST HISTORY: Right hip and lower back pain since fall months ago. COMPARISON: None. FINDINGS: AP view the pelvis and AP and lateral views of right hip. Mild bilateral hip joint space narrowing. Minimal spurring. No evidence of flattening of the femoral heads. No suspicious lucencies or areas of sclerosis within the bones. No fractures, subluxations or dislocations. No definite SI joint abnormalities. Procedure Note Faizan Gonzales MD - 01/30/2017 HISTORY: Right hip and lower back pain since fall months ago. COMPARISON: None. FINDINGS: AP view the pelvis and AP and lateral views of right hip. Mild bilateral hip joint space narrowing. Minimal spurring. No evidenceof flattening of the femoral heads. No suspicious lucencies or areas ofsclerosis within the bones. No fractures, subluxations or dislocations.No definite SI joint abnormalities. IMPRESSION: Mild degenerative changes at the hips. 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 Straightening of the lumbar lordosis which may be due to spasm. POS - [id number] Narrative 01/30/2017 11:31 AM EST HISTORY: Lower back pain. COMPARISON: MRI lumbar spine 06/30/2012 FINDINGS: AP, lateral and bilateral oblique views. Straightening of the lumbar lordosis. No evidence of compression fractures. No subluxations. Severe disc space narrowing and sclerotic degenerative endplate changes from L2 to L3 to L5-S1, most severe at L4-L5, appears stable. Moderate bilateral facet arthropathy at L4-L5. More mild facet arthropathy at the other levels. Procedure Note Faizan Gonzales MD - 01/30/2017 HISTORY: Lower back pain. COMPARISON: MRI lumbar spine 06/30/2012 FINDINGS: AP, lateral and bilateral oblique views. Straightening of the lumbar lordosis. No evidence of compressionfractures. No subluxations. Severe disc space narrowing and scleroticdegenerative endplate changes from L2 to L3 to L5-S1, most severe atL4-L5, appears stable. Moderate bilateral facet arthropathy at L4-L5. More mild facetarthropathy at the other levels. 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 Straighteningof the lumbar lordosis which may be due to spasm. POS - [id number] Yevgeniy Carrillo NP IMG XR SPINE Final Res ult documented in this encounter Visit Diagnoses Diagnosis Pain Generalized pain Pain Generalized pain documented in this encounter Care Teams Microfiche Camera Operator Relationship Specialty Start Date End Date Aiden Muro MD [address] [place] [address] PCP - General Internal Medicine 01/24/17 01/03/20 Aiden Muro MD [address] [place] [address] PCP - General Internal Medicine 01/04/20 12/02/23 Becky Restrepo DO [address] [place] [address] PCP - General Internal Medicine 12/03/23 Barbara Cooper, RESIDENTIAL AIDE [address] [place] [address] Family Medicine 01/30/17 documented as of this encounter Additional Source Comments The information contained in this document represents components of the legal health record. It is not the complete legal health record.[facility]
--- OUTSIDE RECORDS SUMMARY | 2024-10-14 15:59 | XMS_ITS | Encounter Summary ---
Author Organization [facility] Address [facility] [address] [place] [address] Phone Care Team Providers Care Family Counselor Name Role Phone Aiden Muro MD Primary Care Provider [phone] Barbara Cooper ASSOCIATE SOFTWARE DEVELOPMENT ENGINEER Unavailable Aiden Muro MD Primary Care Provider [phone] Becky Restrepo DO Primary Care Provider [phone] Encounter Details Date Type Department Care Team (Late st Contact Info) Description 03/27/2017 Procedure Pass [facility] Endoscopy Admitting Dept Virtual Department [address] [place] [address] Social History Tobacco Use Types Packs/Day Years [...] on filedocumented in this encounter Care Teams Family Counselor Relationship Specialty Start Date End Date Aiden Muro MD [address] [place] [address] PCP - General Internal Medicine 01/24/17 01/03/20 Aiden Muro MD [address] [place] [address] PCP - General Internal Medicine 01/04/20 12/02/23 Becky Restrepo DO [address] [place] [address] PCP - General Internal Medicine 12/03/23 Barbara Cooper, ASSOCIATE SOFTWARE DEVELOPMENT ENGINEER [address] [place] [address] Family Medicine 01/30/17 documented as of this encounter Additional Source Comments The information contained in this document represents components of the legal health record. It is not the complete legal health record.[facility]
--- OUTSIDE RECORDS SUMMARY | 2024-10-14 15:59 | XMS_ITS | Encounter Summary ---
Author Organization [facility] Address [address] [place] [address] Phone Care Team Providers Care Bottle House Quality Control Technician Name Role Phone Barbara Cooper WHIPPED TOPPING MIXER Unavailable Aiden Muro MD Primary Care Provider [phone] Becky Restrepo DO Primary Care Provider [phone] Encounter Details Date Type Department Care Team (Late st Contact Info) Description 03/12/2023 Procedure Pass OR Admitting Dept - Virtual Department [address] [place], [place] [id number] Social History Tobacco Use Types Packs/Day Years Used Date Smoking Tobacco: Former Cigarettes Q uit: 1967 Smokeless Tobacco: Never Alcohol Use Standard Drinks/Week Comments Yes 2 [...] with a working camera? Not on file Sex and Gender Information Value Date Recorded Sex Assigned at Male 12/05/2020 11:22 AM EDT Legal Sex Male 10:06 PM EDT Gender Identity Male 12/05/2020 11:22 AM EDT Sexual Orientation Not on file documented as of this encounter Functional Status * Calculated C-SSRS Risk Score (Lifetime/Recent) Answer Date of Assessment Author No Risk Indicated 03/12/2023 12:11 PM Cyn Ayala RN * [place] Suicide Severity Rating Scale (Screener/Recent Self-Report) Question Answer Date of Assessment Author 1. Wish to be (Past 1 Month) No 024 12:11 PM Cyn Ayala RN 2. Non-Specific Active Suici srinath Thoughts (Past 1 Month) No 03/12/2023 12:11 PM Franki Ayala RN 6. Suicidal Behavior (Lifetime) No 12:11 PM Cyn Ayala RN documented as of this encounter Plan of Treatment Not on file documented as of this encounter Visit Diagnoses Not on filedocumented in this encounter Care Teams Bottle House Quality Control Technician Relationship Specialty Start Date End Date Aiden Muro MD [address] [place] [address] PCP - General Internal Medicine 01/04/20 12/02/23 Becky Restrepo DO [address] [place] [address] PCP - General Internal Medicine 12/03/23 Barbara Cooper, WHIPPED TOPPING MIXER [address] [place] [address] Family Medicine 01/30/17 documented as of this encounter Additional Source Comments The information contained in this document represents components of the legal health record. It is not the complete legal health record.[facility]
--- OUTSIDE RECORDS SUMMARY | 2024-10-14 15:59 | XMS_ITS | Encounter Summary ---
Author Organization [facility] Address [address] [place] [address] Phone Care Team Providers Care Structural Iron Worker Name Role Phone Barbara Cooper PARTITION ASSEMBLER Unavailable Aiden Muro MD Primary Care Provider [phone] Becky Restrepo DO Primary Care Provider [phone] Encounter Details Date Type Department Care Team (Late st Contact Info) Description 07/25/2022 Procedure Pass OR Admitting Dept - Virtual Department [address] [place], [place] [phone] Social History Tobacco Use Types Packs/Day Years [...] on filedocumented in this encounter Care Teams Structural Iron Worker Relationship Specialty Start Date End Date Aiden Muro MD [address] [place] [address] PCP - General Internal Medicine 01/04/20 12/02/23 Becky Restrepo DO [address] [place] [address] PCP - General Internal Medicine 12/03/23 Barbara Cooper, PARTITION ASSEMBLER [address] [place] [address] Family Medicine 01/30/17 documented as of this encounter Additional Source Comments The information contained in this document represents components of the legal health record. It is not the complete legal health record.[facility]
--- OUTSIDE RECORDS SUMMARY | 2024-10-14 16:00 | XMS_ITS | Encounter Summary ---
Author Organization [facility] Address [address] [place] [address] Phone Care Team Providers Care Confidential Investigator Name Role Phone Barbara Cooper SHOPPING INVESTIGATOR Unavailable Aiden Muro MD Primary Care Provider [phone] Becky Restrepo DO Primary Care Provider [phone] Encounter Details Date Type Department Care Team (Late st Contact Info) Description 12/05/2020 Procedure Pass [facility], [address] [phone] Social History Tobacco Use Types Packs/Day Years [...] 6:31 PM EDT Genet Alexander, RN * [place] Suicide Severity Rating Scale (Screener/Recent Self-Report) Question [...] on filedocumented in this encounter Care Teams Confidential Investigator Relationship Specialty Start Date End Date Aiden Muro MD [address] [place] [address] PCP - General Internal Medicine 01/04/20 12/02/23 Becky Restrepo DO [address] [place] [address] PCP - General Internal Medicine 12/03/23 Barbara Cooper, SHOPPING INVESTIGATOR [address] [place] [address] Family Medicine 01/30/17 documented as of this encounter Additional Source Comments The information contained in this document represents components of the legal health record. It is not the complete legal health record.[facility]
--- OUTSIDE RECORDS SUMMARY | 2024-10-14 16:00 | XMS_ITS | Encounter Summary ---
Author Organization [facility] Address [address] [place] [address] Phone Care Team Providers Care Blind Stitch Machine Operator Name Role Phone Barbara Cooper BUILDING INSULATION SUPERVISOR Unavailable Aiden Muro MD Primary Care Provider [phone] Becky Restrepo DO Primary Care Provider [phone] Encounter Details Date Type Department Care Team (Late st Contact Info) Description 02/10/2021 Procedure Pass [facility], Ct Scan - [address] [phone] Social History Tobacco Use Types Packs/Day Years [...] Date of Assessment Author No Risk Indicated 02/10/2021 12:53 PM Noemi Rosas, RN * [place] Suicide Severity Rating Scale (Screener/Recent Self-Report) Question Answer Date of Assessment Author 1. Wish to be (Past 1 Month) No 02/10/2021 12:53 PM Noemi Rosas RN 2. Non-Specific Active Suici srinath Thoughts (Past 1 Month) No 02/10/2021 12:53 PM Jeronimo Rosas RN 6. Suicidal Behavior (Lifetime) No 12:53 PM Noemi Rosas RN documented as of this encounter Plan of Treatment Not on file documented as of this encounter Visit Diagnoses Not on filedocumented in this encounter Care Teams Blind Stitch Machine Operator Relationship Specialty Start Date End Date Aiden Muro MD [address] [place] [address] PCP - General Internal Medicine 01/04/20 12/02/23 Becky Restrepo DO [address] [place] [address] PCP - General Internal Medicine 12/03/23 Barbara Cooper, BUILDING INSULATION SUPERVISOR [address] [place] [address] Family Medicine 01/30/17 documented as of this encounter Additional Source Comments The information contained in this document represents components of the legal health record. It is not the complete legal health record.[facility]
--- OUTSIDE RECORDS SUMMARY | 2024-10-14 16:00 | XMS_ITS | Encounter Summary ---
Author Organization [facility] Address [address] [place] [address] Phone Care Team Providers Care Warehouse Shift Supervisor Name Role Phone Barbara Cooper FAMILY LAW MEDIATOR Unavailable Aiden Muro MD Primary Care Provider [phone] Becky Restrepo DO Primary Care Provider [phone] Encounter Details Date Type Department Care Team (Late st Contact Info) Description 02/10/2021 Procedure Pass [facility], Ct Scan - [address] [phone] Social History Tobacco Use Types Packs/Day Years [...] No Risk Indicated 02/10/2021 12:53 PM Noemi Rsoas, RN * [place] Suicide Severity Rating Scale (Screener/Recent Self-Report) Question [...] on filedocumented in this encounter Care Teams Warehouse Shift Supervisor Relationship Specialty Start Date End Date Aiden Muro MD [address] [place] [address] PCP - General Internal Medicine 01/04/20 12/02/23 Becky Restrepo DO [address] [place] [address] PCP - General Internal Medicine 12/03/23 Barbara Cooper, FAMILY LAW MEDIATOR [address] [place] [address] Family Medicine 01/30/17 documented as of this encounter Additional Source Comments The information contained in this document represents components of the legal health record. It is not the complete legal health record.[facility]
--- OUTSIDE RECORDS SUMMARY | 2024-10-14 16:00 | XMS_ITS | Encounter Summary ---
Author Organization [facility] Address [facility] [address] [place] [address] Phone Care Team Providers Care Director Of Technology Name Role Phone CooperBarbara najera BUSINESS OPERATIONS CONSULTANT Unavailable Aiden Muro MD Primary Care Provider [phone] Becky Restrepo DO Primary Care Provider [phone] Encounter Details Date Type Department Care Team (Late st Contact Info) Description 06/16/2021 Procedure Pass [address] [address] Social History Tobacco Use Types Packs/Day Years [...] on filedocumented in this encounter Care Teams Director Of Technology Relationship Specialty Start Date End Date Aiden Muro MD [address] [place] [address] PCP - General Internal Medicine 01/04/20 12/02/23 Becky Restrepo DO [address] [place] [address] PCP - General Internal Medicine 12/03/23 Barbara Cooper, BUSINESS OPERATIONS CONSULTANT [address] [place] [address] Family Medicine 01/30/17 documented as of this encounter Additional Source Comments The information contained in this document represents components of the legal health record. It is not the complete legal health record.[facility]
--- OUTSIDE RECORDS SUMMARY | 2024-10-14 16:00 | XMS_ITS | Encounter Summary ---
Author Organization [facility] Address [address] [place] [address] Phone Care Team Providers Care Machine Stoppage Frequency Checker Name Role Phone Barbara Cooper SOLAR TECH Unavailable Becky Restrepo DO Primary Care Provider [phone] Encounter Details Date Type Department Care Team (Late st Contact Info) Description 12/09/2023 Procedure Pass [facility], Ct Scan - [facility] [address] [place] [address] Social History Tobacco Use Types Packs/Day Years [...] as food, clothing, or medical care? No 12/09/2023 In the past 12 months have y ou been in a relationship with a person who hurts, threatens, or tries to control you? No 12/09/2023 Are you denied basic needs s uch as food, clothing, or medical care? No 12/09/2023 In the past 12 months have y ou been in a relationship with a person who hurts, threatens, or tries to control you? No 12/09/2023 Sex and Gender Information Value Date Recorded Sex Assigned at Male 12/05/2020 11:22 AM EDT Legal Sex Male 10:06 PM EDT Gender Identity Male 12/05/2020 11:22 AM EDT Sexual Orientation Not on file documented as of this encounter Functional Status * Calculated C-SSRS Risk Score (Lifetime/Recent) Answer Date of Assessment Author No Risk Indicated 12/09/2023 10:41 AM EDT Zita Claire RN * [place] Suicide Severity Rating Scale (Screener/Recent Self-Report) Question Answer Date of Assessment Author 1. Wish to be (Past 1 Month) No 024 10:41 AM HUET Zita Claire RN 2. Non-Specific Active Suici srinath Thoughts (Past 1 Month) No 12/09/2023 10:41 AM EDT Zita Claire RN 6. Suicidal Behavior (Lifetime) No 4 10:41 AM EDT Zita Claire RN documented as of this encounter Plan of Treatment Not on file documented as of this encounter Visit Diagnoses Not on filedocumented in this encounter Care Teams Machine Stoppage Frequency Checker Relationship Specialty Start Date End Date Becky Restrepo DO [address] [place] [address] PCP - General Internal Medicine 12/03/23 Barbara Cooper, SOLAR TECH [address] [place] [address] Family Medicine 01/30/17 documented as of this encounter Additional Source Comments The information contained in this document represents components of the legal health record. It is not the complete legal health record.[facility]
--- OUTSIDE RECORDS SUMMARY | 2024-10-14 16:00 | XMS_ITS | Clinical Summary ---
Author Organization [facility] Address [address] [place] [address] Care Team Providers Care Online Marketing Specialist Name Role Phone Bhaskar Freitas MD Primary Care Provider [phone] Allergies No known active allergies Medications Medication [...] age to complete this topic Care Teams Online Marketing Specialist Relationship Specialty Start Date End Date Bhaskar Freitas MD [address] [place], [place] [phone] PCP - General Family Medicine 10/27/20
--- OUTSIDE RECORDS SUMMARY | 2024-10-14 16:00 | XMS_ITS | Encounter Summary ---
Author Organization [facility] Address [address] [place] [address] Phone Care Team Providers Care Sr. Unix System Administrator Name Role Phone Barbara Cooper AERONAUTICAL ENGINEER Unavailable Aiden Muro MD Primary Care Provider [phone] Becky Restrepo DO Primary Care Provider Encounter Details Date Type Department Care Team (Late st Contact Info) Description 12/05/2020 Procedure Pass [facility] [address] [place] [address] Social History Tobacco Use Types Packs/Day Years [...] 6:31 PM EDT Genet Alexander, RN * [place] Suicide Severity Rating Scale (Screener/Recent Self-Report) Question [...] on filedocumented in this encounter Care Teams Sr. Unix System Administrator Relationship Specialty Start Date End Date Aiden Muro MD [address] [place] [address] PCP - General Internal Medicine 01/04/20 12/02/23 Becky Restrepo DO [address] [place] [address] PCP - General Internal Medicine 12/03/23 Barbara Cooper, AERONAUTICAL ENGINEER [address] [place] [address] Family Medicine 01/30/17 documented as of this encounter Additional Source Comments The information contained in this document represents components of the legal health record. It is not the complete legal health record.[facility]
--- OUTSIDE RECORDS SUMMARY | 2024-10-14 16:00 | XMS_ITS | Encounter Summary ---
Author Organization [facility] Address [facility] [address] [place] [address] Phone Care Team Providers Care Correctional Corporal Name Role Phone Barbara Cooper COOK STATION Unavailable Aiden Muro MD Primary Care Provider [phone] Becky Restrepo DO Primary Care Provider [phone] Reason for Referral * MRI/CAT Scan - Closed Specialty Diagnoses / Procedures Referred By Contac t Referred To Contact Radiology Diagnoses Cervicalgia Procedures MRI Cervical Spine CHG MRI, CERV SPINE CHG MRI, CERV SPINE CONTRAST CHG MRI, DORSAL SPINE Andrés Campbell MD [address] [place] [address] Phone: tel: fax: Referral ID Status Reason Start Date Expiration Date Visits Re quested Visits Authorized [id number] Closed 06/16/2021 09/02/2021 1 1 Encounter Details Date Type Department Care Team (Latest Contact Info) Description 06/16/2021 Transcribe Orders Virtual Department [address] [place] [address] Andrés Campbell MD [address] [place] [address] Cervicalgia (Primary Dx) Social History Tobacco Use Types [...] documented as of this encounter Results * MRI CERVICAL SPINE (BONE) WITHOUT CONTRAST (07/04/2021 1:31 PM EDT) Anatomical Region Laterality Modality C-spine Magnetic Resonan ce 07/04/2021 2:04 PM EDT Impressions 07/04/2021 4:13 PM EDT 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 Otherwise stable multilevel advanced cervical spondylosis as above most significant at C3-4 with mild bony canal stenosis. No large disc herniation or evidence of myelitis. Narrative 07/04/2021 4:13 PM EDT COMPARISON: MRI 03/02/2014. TECHNIQUE: Exam performed on a 1.5 Susan high-field MRI scanner. Sagittal T1, T2 and STIR, axial T2* gradient echo and 3-D bright fluid sequences were obtained. MRI CERVICAL SPINE FINDINGS: Stable straightening of the spine. Loss of lordosis. Chronic severe disc space narrowing from C3-4 through C7-T1 with anterior wedging and moderate size endplate osteophytes. No malalignment. Stable mild multilevel degenerative endplate marrow edema. No destructive or suspicious bone lesions. No cerebellar tonsil herniation. No spinal cord lesions or syrinx. Paraspinal soft tissues are unremarkable. C2-3: Unremarkable. C3-4: Stable moderate size calcified disc osteophyte complex with a left paracentral component and mild posterior ligamentous hypertrophy causing mild canal stenosis. Stable moderate right and mild left facet arthropathy and progressive right uncovertebral osteophytes resulting in severe right neural foraminal stenosis. Stable moderate left neural foraminal stenosis. C4-5: Stable generalized disc osteophyte complex and mild facet arthropathy and mild bilateral neural foraminal stenosis due to spurring. C5-6: Stable generalized disc osteophyte complex and mild left neural foraminal stenosis due to spurring. C6-7: Stable generalized disc osteophyte complex and mild left neural foraminal stenosis due to spurring. C7-T1: Stable generalized disc osteophyte complex. Procedure Note Casey Castillo MD - 07/04/2021 COMPARISON: MRI 03/02/2014. TECHNIQUE: Exam performed on a 1.5 Susan high-field MRI scanner. SagittalT1, T2 and STIR, axial T2* gradient echo and 3-D bright fluid sequenceswere obtained. MRI CERVICAL SPINE FINDINGS: Stable straightening of the spine. Loss of lordosis. Chronic severe discspace narrowing from C3-4 through C7-T1 with anterior wedging and moderatesize endplate osteophytes. No malalignment. Stable mild multileveldegenerative endplate marrow edema. No destructive or suspicious bonelesions. No cerebellar tonsil herniation. No spinal cord lesions orsyrinx. Paraspinal soft tissues are unremarkable. C2-3: Unremarkable. C3-4: Stable moderate size calcified disc osteophyte complex with a leftparacentral component and mild posterior ligamentous hypertrophy causingmild canal stenosis. Stable moderate right and mild left facet arthropathyand progressive right uncovertebral osteophytes resulting in severe rightneural foraminal stenosis. Stable moderate left neural foraminal stenosis. C4-5: Stable generalized disc osteophyte complex and mild facetarthropathy and mild bilateral neural foraminal stenosis due tospurring. C5-6: Stable generalized disc osteophyte complex and mild left neuralforaminal stenosis due to spurring. C6-7: Stable generalized disc osteophyte complex and mild left neuralforaminal stenosis due to spurring. C7-T1: Stable generalized disc osteophyte complex. IMPRESSION: 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 Otherwise stablemultilevel advanced cervical spondylosis as above most significant at C3-4with mild bony canal stenosis. No large disc herniation or evidence ofmyelitis. Andrés Campbell MD IMG MR XSPECIALTY Final Resul t documented in this encounter Visit Diagnoses Diagnosis Cervicalgia- Primary Cervicalgia documented in this encounter Care Teams Correctional Corporal Relationship Specialty Start Date End Date Aiden Muro MD [address] [place] [address] PCP - General Internal Medicine 01/04/20 12/02/23 Becky Restrepo DO [address] [place] [address] PCP - General Internal Medicine 12/03/23 Barbara Cooper, COOK STATION [address] [place] [address] Family Medicine 01/30/17 documented as of this encounter Additional Source Comments The information contained in this document represents components of the legal health record. It is not the complete legal health record.[facility]
== END 2024-10-14 14:52 | disposition home or self-care (01) ==
LOC: HO.HUSH 13:51
PROVIDERS: PCP Internal Medicine; Visit Provider Urology
DX: N39.3 Stress incontinence (female) (male) (principal)
CPT/HCPCS: 99204

== ENCOUNTER → 2024-10-14 13:50 | Outpatient (BNVA) | payer MEDICARE, BC, SELFPAY | PROVIDERS: PCP Internal Medicine; Visit Provider Urology | DX: N39.3 Stress incontinence (female) (male) (principal); K64.9 Unspecified hemorrhoids; Z13.9 Encounter for screening, unspecified | CPT/HCPCS: 51798; 99202 ==

== ENCOUNTER → 2024-10-15 08:46 | Outpatient (BNV) | payer MEDICARE, BC, SELFPAY | PROVIDERS: PCP Internal Medicine; Visit Provider Urology | DX: Z13.9 Encounter for screening, unspecified (principal) | CPT/HCPCS: 81003 ==